=== PATIENT | male | born 1945 | race Caucasian/White ===

== ENCOUNTER 2021-02-19 14:39 | Outpatient (CLI) | payer OTHER, SELFPAY ==
--- NOTE | 2021-02-19 14:30 | XRR_ITS ---
PROCEDURE INFORMATION: Exam: XR Abdomen Exam date and time: 02/19/2021 2:48 PM Age: 75 years old Clinical indication: Condition or disease; Other: N21.0 - calculus in bladder; Patient HX: Kidney stone, frequent infections since 09/2020, HX of lung cancer TECHNIQUE: Imaging protocol: XR of the abdomen. Views: Frontal supine view of the abdomen. 1 View. Total images: 2 COMPARISON: DX Abdomen 1 view [id number] 01/10/2021 2:31 PM FINDINGS: Lungs: Evidence of antecedent granulomatous disease. Gastrointestinal tract: Nonobstructive bowel pattern. No visible significant adynamic or reactive ileus. Heavy fecal residue consistent with constipation. Organs: No radiographically visible renal or ureterolithiasis. Vasculature: Arteriosclerosis. Bones/joints: Scoliosis of the spine with degenerative disease and degenerative disc disease and associated spondylosis deformans. XR/XR KUB [id number] IMPRESSION: 1. Constipation. 2. No radiographically visible renal or ureterolithiasis.
== END 2021-02-19 14:40 | disposition home or self-care (01) ==
LOC: RAD 14:43
PROVIDERS: Visit Provider Urology
DX: N21.0 Calculus in bladder (principal); K59.00 Constipation, unspecified
CPT/HCPCS: 74018; 81003; 87077; 87086; 87184

== ENCOUNTER → 2021-03-15 08:15 | Outpatient (BNVA) | payer OTHER, SELFPAY | PROVIDERS: Visit Provider Urology | DX: N39.0 Urinary tract infection, site not specified (principal); N21.0 Calculus in bladder; R39.89 Other symptoms and signs involving the genitourinary system | CPT/HCPCS: 81003; 87077; 87086; 87184 ==

== ENCOUNTER → 2021-03-20 10:28 | Outpatient (BNVA) | payer OTHER, SELFPAY | PROVIDERS: Visit Provider Urology | DX: N21.0 Calculus in bladder (principal); Z20.822 Contact with and (suspected) exposure to COVID-19 | CPT/HCPCS: 87635 ==

== ENCOUNTER 2021-03-23 10:29 | Day surgery (SDC) | payer OTHER, SELFPAY ==
[2021-03-22 14:19] VITALS: BMI 25.0
[2021-03-23] VITALS (7 sets, daily range): BP systolic 145–170; BP diastolic 82–96; PULSE 81–95; RESP 12–20; TEMP 36.1–36.6; O2SAT 94–99
--- NOTE | 2021-03-23 10:34 | XR_ITS ---
WS: [id number] KUB, AP view, 03/23/2021 Clinical Data: Preop ESWL bladder stone Comparison: KUB, 02/19/2021. Findings: No abnormal intraabdominal masses or calcifications are seen. There is no dilatated small bowel or ev idence of obstruction. There is a large amount of fecal material throughout the colon. The fecal material and colon gas obsc ure detail over the kidneys. There is a dextroscoliosis with osteoarthritis. There is a calcification measuring 2.7 cm overlying the bladder. There are vascular calcifications in the true pelvis. There are prostatic calcifications. XR/XR KUB [id number] Impression: 1. Dense calcification overlying the bladder in the true pelvis. 2. Prostatic calcifications.
[2021-03-23] MEDS: sodium chloride 0.9% 1,000 ML 30 ML IV (11:14)
--- NOTE | 2021-03-23 11:36 | ANES.PREANE2 ---
Pre-Anesthetic Assessment Pre-Anesthetic Assessment: Height/Weight: Height 1.73 m Weight 74.843 kg Temp Pulse Resp BP Pulse Ox 97.7 F 88 16 170/87 98 03/23/21 11:09 03/23/21 11:09 03/23/21 11:09 03/23/21 11:09 03/23/21 11:09 Preop Diagnosis: Bladder stones Proposed Procedure: Operation Date: 03/23/21 12:00 Proposed Procedures p ESWL 38925 n21.0(Not Applicable) - Jim Okeefe MD Familial anesthetic complications: none Was Beta Sanjeev taken within 24 hours: N/A Was Clonidine taken within 24 hours: N/A Last intake: Intake Last Liquid Date 03/23/21 Last Liquid Time 08:00 Last Solid Date 03/22/21 Last Solid Time 19:30 Social: Social History: No alcohol and No tobacco Airway: Cervical ROM: WNL MP: 3 Dentition: Partials Pulmonary: Comments: lung cancer CV/HEM: CV/HEM: HTN Metabolic: Metabolic: Hyperlipidemia Anesthetic Plan: ASA status: 2 Anesthesia: General Risk of > 500 ml blood loss (7ml/kg in children): No Meds/Allergies Current Medications: Current Medications Generic Name Dose Route Start Last Admin Trade Name Freq PRN Reason Stop Dose Admin Sodium Chloride 1,000 mls @ 30 ml s/hr 03/23/21 10:45 03/23/21 11:14 Sodium Chloride 0.9% IV 03/24/21 10:44 30 mls/hr .Q24H ANASTASIA Administration PFSH Anesthesia PFSH: Medical History (Updated 03/15/21 @ 09:29 by Jim Okeefe MD) Calculus in bladder Recurrent UTI Family History Mother , AT 60 Heart disease Father , AT 64 Diabetes Social History Smoking and tobacco status: former smoker Alcohol intake: never Marital status: / Current occupational status: retired History of recent travel: No Data Anesthesia Cardiac Studies: No Data to Display
--- NOTE | 2021-03-23 12:38 | P.HPUD_ITS ---
Surgery/Procedure H&P Update DATE OF PROCEDURE: March 23, 2021 DATE H&P PERFORMED: 03/15/21 H&P UPDATE INFORMATION: I have reviewed H&P completed within last 30 days, I have examined patient prior to procedure, No changes to prior documentation and H&P is in [facility] [place] EMR on date indicated PREOP DIAGNOSIS: Bladder stones PLANNED PROCEDURE: Operation Date: 03/23/21 12:00 Proposed Procedures p ESWL 11765 n21.0(Not Applicable) - Jim Okeefe MD
[2021-03-23] MEDS: levofloxacin-dextrose 5 % 500 MG/100 ML PREMIX 100 MG IV (12:45)
--- NOTE | 2021-03-23 13:59 | PM.OP ---
Operative Report Date of procedure: March 23, 2021 Pre-op Diagnosis: Bladder stone Post-op Diagnosis: 1. Large bladder stone 2. Huge prostate with intravesical protruding median lobe 3. Prostatic bleeding from median lobe Procedure Done: 1. Extracorporeal shockwave lithotripsy to large bladder stone 2. Cystoscopy with stone fragment evacuation 3. Fulguration of bleeding prostate Specimens removed/disposition: Bladder stone fragments Pathology: Bladder stone fragments Surgeon: Maldonado Anesthesia: General Estimated blood loss: Less than 50 cc Urine output: Not measured Complications: None Findings: 1. Bladder stone broke up very well with ESWL in 2000 shocks 2. Huge intravesical protruding median lobe that was very friable requiring some post stone fragment evacuation fulguration. Hemostatic at the completion of the fulguration. Condition: stable Disposition: PACU Brief History: Mr. Nichols is a very pleasant 75-year-old white male recently evaluated for hematuria found to have a large bladder stone. He is on dual medical therapy for BPH. Overall felt like he was voiding okay most of the time but at times did have significant abrupt stopping of his stream with intermittency. Bladder stone was identified on CT scan. ESWL was selected as the treatment of choice for his bladder stone with plan for cystoscopy and fragment evacuation. He is already on dual medical therapy for BPH. Procedure: After routine preoperative evaluation examination and obtaining of informed consent he was taken to the operating suite on 03/23/2021 where general anesthesia was administered without difficulty after appropriate timeout was performed, SCDs confirmed to be functioning, preoperative antibiotics administered, beta-madeline protocol confirmed. Positioned on the Dornier unit with the shock head positioned anteriorly over the bladder. The stone was easily identified with biplanar fluoroscopy and focused upon. Shockwave was initiated at a rate of 60 and intensity of 1 advanced an intensity of 4. There was early and fairly significant change. He received about thousand shocks with dramatic change. He was then repositioned in dorsolithotomy position paying careful attention to avoiding pressure points. 23 Romanian cystoscope with 30 degree lens was introduced into the urethra meatus and advanced into the bladder under videoscopy. The bladder was inspected with both 30 and 70 degree lenses. All the stone fragments were washed free. No other additional fragments could be identified on careful inspection. He did have some oozing from multiple sites on his very large median lobe and this was fulgurated with a Bugbee probe for good hemostasis. The bladder was drained and the procedure was completed. He tolerated procedure well without complications and was awakened in the operating room and returned to recovery room. PLANS: 1. Increase tamsulosin to twice a day 2. Observe closely over the next couple hours to make sure that he can void adequately before finalizing discharge. If he has significant difficulty voiding or any evidence of clot issues I would recommend putting a catheter in and observing him overnight rather than sending him home. I reviewed all of this with daughter Lorie. 3. Continue ciprofloxacin at home
[2021-03-30 20:32] LABS: Stone Source BLADDER
== END 2021-03-23 15:38 | disposition home or self-care (01) ==
PROVIDERS: Visit Provider Urology
PROC: (CPT 50590; principal; 2021-03-23 12:00)
PROC: 0TJB8ZZ Inspection of Bladder, Via Natural or Artificial Opening Endoscopic (ICD-10-PCS; CPT 52000; 2021-03-23 12:00)
DX: N21.0 Calculus in bladder (principal); I10 Essential (primary) hypertension; E78.5 Hyperlipidemia, unspecified; Z87.891 Personal history of nicotine dependence
CPT/HCPCS: 50590; 52214; 74018; 82365; 88300; J1100; J1956; J2405; J2704; J2710; J3010; J3490; J7030

== ENCOUNTER 2021-03-26 19:36 | Inpatient (IN) | payer OTHER, MEDICARE, SELFPAY ==
[2021-03-26] VITALS (7 sets, daily range): BP systolic 138–160; BP diastolic 65–83; PULSE 91–102; RESP 17–26; TEMP 37.1; O2SAT 93–98; BMI 24.3
[2021-03-26 20:10] LABS: Basophils # 0.2 10^3/uL (0.0-0.1); Basophils % 0.4 %; Hematocrit 41.1 % (42.0-52.0); Hemoglobin 13.8 g/dL (11.7-16.6); Lymphocytes # 0.8 10^3/uL (0.8-4.8); Lymphocytes % 1.8 %; Mean Corpuscular HGB Conc 33.6 g/dL (30.0-36.0); Mean Corpuscular Hemoglobin 28.9 pg (28.0-34.0); Mean Platelet Volume 8.7 fL (7.4-10.4); Monocytes # 0.7 10^3/uL (0.2-0.9); Monocytes % 1.5 %; Neutrophils # 42.83 10^3/uL (1.8-7.7); Neutrophils % 95.4 %; Nucleated Red Blood Cells % 0 %; Platelet Count 435 10^3/cmm (130-400); Red Blood Count 4.78 10^6/uL (4.1-5.3); Red Cell Distribution Width 13.7 % (12.1-15.1)
[2021-03-26 20:13] LABS: White Blood Count 44.9 10^3/uL (4.0-10.0)
--- NOTE | 2021-03-26 20:24 | CTR_ITS ---
PROCEDURE INFORMATION: Exam: CT Abdomen And Pelvis With Contrast Exam date and time: 03/26/2021 8:24 PM Age: 76 years old Clinical indication: Other: Weakness; Abdominal pain; Localized; Right lower quadrant (rlq); Prior surgery; Surgery type: Prostate, colon TECHNIQUE: Imaging protocol: Computed tomography of the abdomen and pelvis with contrast. Radiation optimization: All CT scans at this facility use at least one of these dose optimization techniques: automated exposure control; mA and/or kV adjustment per patient size (includes targeted exams where dose is matched to clinical indication); or iterative reconstruction. Contrast material: VISI 320; Contrast volume: 95 ml; Contrast route: INTRAVENOUS (IV); COMPARISON: CR XR KUB [id number] 03/23/2021 10:53 AM RADIATION DOSE METRICS: Total DLP (mGy-cm): 1754.12 FINDINGS: Lungs: Bibasilar atelectasis versus minimal infiltrate. Pleural spaces: Trace bilateral pleural effusions. Liver: Normal. No mass. Gallbladder and bile ducts: Moderate intrahepatic biliary dilation is likely chronic. Pancreas: Normal. No ductal dilation. Spleen: Normal. No splenomegaly. Adrenal glands: Normal. No mass. Kidneys and ureters: Normal. No hydronephrosis. Stomach and bowel: Prominent fluid in the small bowel without dilation may reflect an ileus or enteritis. Mid sigmoid colon mild wall thickening with some edema about several diverticuli may reflect a mild diverticulitis in this area or simply nondistention of the bowel depending on the clinical scenario. Appendix: No evidence of appendicitis. Intraperitoneal space: Moderate ascites in the abdomen, nonspecific. Vasculature: Unremarkable. No abdominal aortic aneurysm. Lymph nodes: 18 mm apparent lymph nodes seen along the right aspect of the superior vena cava, nonspecific. Urinary bladder: Air seen in the urinary bladder may be iatrogenic. Reproductive: Prostate gland enlarged. Bones/joints: Unremarkable. No acute fracture. Soft tissues: Unremarkable. Other findings: Emphysematous changes. CT/CT abdomen pelvis w con* [id number] IMPRESSION: 1. Prominent fluid in the small bowel without dilation may reflect an ileus or enteritis. 2. Mid sigmoid colon mild wall thickening with some edema about several diverticuli may reflect a mild diverticulitis in this area or simply nondistention of the bowel depending on the clinical scenario. 3. Bibasilar atelectasis versus minimal infiltrate. 4. Trace bilateral pleural effusions. 5. Air seen in the urinary bladder may be iatrogenic. 6. Moderate intrahepatic biliary dilation is likely chronic. 7. Moderate ascites in the abdomen, nonspecific. 8. Diverticulosis without diverticulitis. 9. Emphysematous changes. Radiation Dose CTDIVOL = (mGy): DLP = 1754.12 (mGy-cm)
[2021-03-26 20:26] LABS: Alanine Aminotransferase 24 U/L (0-41); Albumin Level 3.9 g/dL (3.5-5.2); Alkaline Phosphatase 107 IU/L (40-130); Anion Gap 17.7 (5-19); Aspartate Amino Transferase 21 U/L (0-40); Blood Urea Nitrogen 29 mg/dL (8-23); C Reactive Protein 131.4 mg/L (0.0-4.9); Carbon Dioxide 21 mmol/L (22-29); Chloride 92 mmol/L (98-107); Globulin 2.6 g/dL (1.3-4.6); Glucose 137 mg/dL (65-115); Lipase 12 U/L (13-60); Osmolality Calculated 272 mOsm/kg (285-295); Potassium 3.7 mmol/L (3.5-5.1); Sodium 127 mmol/L (136-145); Total Bilirubin 1.1 mg/dL (0.15-1.2); Total Protein 6.5 g/dL (6.6-8.7)
[2021-03-26] MEDS: sodium chloride 0.9% 1,000 ML 999 ML IV (20:34)
[2021-03-26] MEDS: HYDROmorphone 1 mg/mL INJ 1 mL IVP ×2 (20:35→22:31)
--- NOTE | 2021-03-26 20:54 | ED_ITS ---
HPI - Abdominal Pain General: Chief Complaint: Abdominal Pain Stated Complaint: abd pain Time Seen by Provider: 03/26/21 19:37 Source: patient, family (son) and RN notes reviewed Mode of arrival: EMS Limitations: no limitations History of Present Illness: HPI narrative: Patient is a 76-year-old male with a history of bladder stones and who had lithotripsy for a large bladder stone 3 days ago. For the last 2 days the patient has had generalized abdominal pain that starts in his lower abdomen and spread to the rest of his abdomen. Pain is said to be severe, crampy in nature. He has also not made a lot of urine output. His appetite is decreased. He denies any fever. He has some nausea but no vomiting. He is here to be evaluated for these. MD elicited complaint: abdominal pain Pertinent past history: kidney stones Onset (ago): hour(s) (2) Pain Consistency: constant Location: Diffuse Severity: severe Quality: cramping Radiation: none Exacerbating factors: nothing Relieving factors: nothing Associated Symptoms: Reports anorexia, GI cramping, nausea and poor appetite; Denies belching, bloating, change in bowel habits, change in stool character, chills, coffee ground emesis, constipation, diarrhea, dyspepsia, dysuria, excessive flatus, fever(s), heartburn, hematochezia, hematuria, hematemesis, fecal incontinence, loose stools, melena, syncope and vomiting Review of Systems General: Reports: 10 or more systems reviewed and unremarkable except in HPI and below Const: Denies: fever(s) or chills Card: Denies: syncope GI: Reports: nausea and GI cramping; Denies: vomiting, hematemesis, coffee ground emesis, heartburn, diarrhea, constipation, bloating, belching, excessive flatus, fecal incontinence, change in bowel habits, change in stool character, hematochezia or melena : Denies: dysuria or hematuria PFSH ED PFSH: Medical History (Reviewed 03/26/21 @ 21:00 by Melissa Daugherty MD, [facility] [place]) Calculus in bladder Recurrent UTI Family History (Reviewed 03/26/21 @ 21:00 by Melissa Daugherty MD, [facility] [place]) Mother , AT 60 Heart disease Father , AT 64 Diabetes Social History (Reviewed 03/26/21 @ 21:00 by Melissa Daugherty MD, [facility] [place]) Smoking and tobacco status: former smoker Alcohol intake: never Marital status: / Current occupational status: retired History of recent travel: No Physical Exam Const: COMMON NORMALS: no acute distress, average body habitus, patient oriented x3, no limitations, healthy appearing, alert and well nourished HENMT: COMMON NORMALS: normocephalic, atraumatic and moist oral mucous membranes HEAD & SCALP: normocephalic and atraumatic Neck/C-Spine: COMMON NORMALS: no meningeal signs and no JVD Resp: COMMON NORMALS: normal respiratory effort, No retractions, No use of accessory muscles, clear to auscultation bilaterally and percussion normal AUSCULTATION: clear to auscultation bilaterally PERCUSSION: percussion normal Cardio: COMMON NORMALS: no JVD, regular rate, regular rhythm, S1 normal heart sound present, S2 normal heart sound present, No gallops present (Cardio), No clicks present (Cardio), No murmurs present (Cardio), No rub (Cardio) and Peripheral pulses 2+ throughout RATE: regular rate RHYTHM: regular rhythm HEART SOUNDS: S1 normal heart sound present and S2 normal heart sound present PERIPHERAL PULSES: Peripheral pulses 2+ throughout GI: COMMON NORMALS: Soft to palpation, No hepatosplenomegaly present, no masses and no bruits INSPECTION: Yes abdominal distension PALPATION: Yes Soft to palpation, Yes Tenderness to palpation present (GI) (diffuse), Yes Guarding due to palpation present (GI), Yes Rigid due to palpation and Yes No hepatosplenomegaly present Extremity: COMMON NORMALS: normal to inspection, full ROM, capillary refill normal, no calf tenderness and no pedal edema Neuro: COMMON NORMALS: patient oriented x3 SENSORIUM/ORIENTATION: Yes alert MENINGEAL SIGNS: Yes no meningeal signs Skin: COMMON NORMALS: no rashes or lesions noted, no wounds, turgor normal, no jaundice, no petechiae and no mottling GENERAL SKIN EXAM: no rashes or lesions noted and turgor normal Course Reevaluation(s): Reevaluation #1: Does notDiscussed his lab and imaging findings with him. Explained that iatrogenic complication from his lithotripsy, however he has a urinary tract infection as well as possible diverticulitis. Because of his white cell count he will need hospital admission and intravenous antibiotics. He voiced understanding and is in agreement with the plan. Time: 23:00 Consultations: Consultation #1: Discussed the patient with Dr. Coppola, hospitalist and she kindly accepted the patient to her service. Time: 23:06 Vital Signs: Vital signs: Vital Signs Temperature 98.7 F 03/26/21 19:38 Pulse Rate 98 03/26/21 19:38 Respiratory Rate 18 03/26/21 22:31 Blood Pressure 157/77 03/26/21 19:38 Pulse Oximetry 96 03/26/21 22:31 MDM - Abdominal Pain MDM Narrative: Medical decision making narrative: 76-year-old male who pres ents to the emergency department with abdominal pain of 2 days duration. This started 1 day after he had lithotripsy for large bladder stones. He has also been having difficulty with urination. No fever. In the emergency department evaluation shows he has a urinary tract infection and possible diverticulitis. He has severely elevated white cell count. He does not appear to be septic at this time but he will need hospital admission. He is admitted to the hospital for further evaluation and management. Medical Records: Attestation: I reviewed the patient's medical records. Lab Data: Attestation: I reviewed the patient's lab results. Labs: Lab Results 03/26/21 03/26/21 03/26/21 Range/Units 19:55 19:55 20:33 WBC 44.9 H* (4.0-10.0) 10^3/ uL RBC 4.78 (4.1-5.3) 10^6/u L Hgb 13.8 (11.7-16.6) g/dL Hct 41.1 L (42.0-52.0) % MCV 86.0 (80-94) fL MCH 28.9 (28.0-34.0) pg MCHC 33.6 (30.0-36.0) g/dL RDW 13.7 (12.1-15.1) % Plt Count 435 H (130-400) 10^3/c mm MPV 8.7 (7.4-10.4) fL Neut % (Auto) 95.4 % Lymph % (Auto) 1.8 % [place] % (Auto) 1.5 % Eos % (Auto) 0.0 % Baso % (Auto) 0.4 % Neut # (Auto) 42.83 H (1.8-7.7) 10^3/u L Lymph # (Auto) 0.8 (0.8-4.8) 10^3/u L [place] # (Auto) 0.7 (0.2-0.9) 10^3/u L Eos # (Auto) 0.0 (0.0-0.8) 10^3/u L Baso # (Auto) 0.2 H (0.0-0.1) 10^3/u L Nucleated RBC % (a uto) 0 % Nucleated RBCs # 0.0 /100WBC Sodium 127 L (136-145) mmol/L Potassium 3.7 (3.5-5.1) mmol/L Chloride 92 L (98-107) mmol/L Carbon Dioxide 21 L (22-29) mmol/L Anion Gap 17.7 (5-19) BUN 29 H (8-23) mg/dL Creatinine 1.4 H (0.7-1.2) mg/dL GFR Calculation Not Reportable Glucose 137 H (65-115) mg/dL Calculated Osmolal ity 272 L (285-295) mOsm/k g Lactate (0.5-2.2) mmol/L Calcium 9.0 (8.5-10.5) mg/dL Total Bilirubin 1.1 (0.15-1.2) mg/dL AST 21 (0-40) U/L ALT 24 (0-41) U/L Alkaline Phosphata se 107 (40-130) IU/L Troponin T Baselin e (0-15) ng/L C-Reactive Protein 131.4 H (0.0-4.9) mg/L Total Protein 6.5 L (6.6-8.7) g/dL Albumin 3.9 (3.5-5.2) g/dL Globulin 2.6 (1.3-4.6) g/dL Lipase 12 L (13-60) U/L Urine Color [place] (Yellow) Urine Appearance Cloudy (CLEAR) Urine pH 5 (5-7) Ur Specific Gravit y 1.020 (1.005-1.030) Urine Protein 2+ H (Negative) Urine Glucose (UA) Norm (Normal) Urine Ketones Negative (Negative) Urine Blood 2+ H (Negative) Urine Nitrate Positive H (Negative) Urine Bilirubin 1+ H (Negative) Urine Urobilinogen 4 H (Negative) mg/dL Ur Leukocyte Lake[place] ase 2+ H (Negative) Urine RBC 5-10 H (0-2) /hpf Urine WBC 25-40 H (0-5) /hpf Ur Squamous Epith Cells 5-10 H (0-5) /hpf Amorphous Sediment Not Reportable Urine Bacteria 1+ H (NONE) /hpf Urine Yeast 3+ H /hpf 03/26/21 03/26/21 03/26/21 Range/Units 20:45 22:02 22:45 WBC (4.0-10.0) 10^3/ uL RBC (4.1-5.3) 10^6/u L Hgb (11.7-16.6) g/dL Hct (42.0-52.0) % MCV (80-94) fL MCH (28.0-34.0) pg MCHC (30.0-36.0) g/dL RDW (12.1-15.1) % Plt Count (130-400) 10^3/c mm MPV (7.4-10.4) fL Neut % (Auto) % Lymph % (Auto) % [place] % (Auto) % Eos % (Auto) % Baso % (Auto) % Neut # (Auto) (1.8-7.7) 10^3/u L Lymph # (Auto) (0.8-4.8) 10^3/u L [place] # (Auto) (0.2-0.9) 10^3/u L Eos # (Auto) (0.0-0.8) 10^3/u L Baso # (Auto) (0.0-0.1) 10^3/u L Nucleated RBC % (a uto) % Nucleated RBCs # /100WBC Sodium (136-145) mmol/L Potassium (3.5-5.1) mmol/L Chloride (98-107) mmol/L Carbon Dioxide (22-29) mmol/L Anion Gap (5-19) BUN (8-23) mg/dL Creatinine (0.7-1.2) mg/dL GFR Calculation Glucose (65-115) mg/dL Calculated Osmolal ity (285-295) mOsm/k g Lactate 1.8 (0.5-2.2) mmol/L Calcium (8.5-10.5) mg/dL Total Bilirubin (0.15-1.2) mg/dL AST (0-40) U/L ALT (0-41) U/L Alkaline Phosphata se (40-130) IU/L Troponin T Baselin e 12 (0-15) ng/L C-Reactive Protein (0.0-4.9) mg/L Total Protein (6.6-8.7) g/dL Albumin (3.5-5.2) g/dL Globulin (1.3-4.6) g/dL Lipase (13-60) U/L Urine Color [place] (Yellow) Urine Appearance Cloudy (CLEAR) Urine pH 5 (5-7) Ur Specific Gravit y 1.015 (1.005-1.030) Urine Protein 2+ H (Negative) Urine Glucose (UA) Norm (Normal) Urine Ketones Negative (Negative) Urine Blood 3+ H (Negative) Urine Nitrate Positive H (Negative) Urine Bilirubin 1+ H (Negative) Urine Urobilinogen 4 H (Negative) mg/dL Ur Leukocyte Lakeisha ase 2+ H (Negative) Urine RBC (0-2) /hpf Urine WBC (0-5) /hpf Ur Squamous Epith Cells (0-5) /hpf Amorphous Sediment Urine Bacteria (NONE) /hpf Urine Yeast /hpf Imaging Data ^: CT Abd/Pel: Attestation: I personally reviewed and interpreted this imaging study as follows: Radiologist's impression: [address] [id number] Scan ReportSigned Patient: Jeremy Nichols JUnit #: [id number]: [id number]#:[id number]/Sex: 76 / MADM Date: 03/26/21Loc: ERRoom/Bed:Attending Dr: Ordering Provider/Ordering MD: Melissa Daugherty MD, [facility] [place] Date of Service: 03/26/21 Procedure(s): CT abdomen pelvis w con* [id number] Accession Number(s): [id number] Report Number: [id number] PROCEDURE INFORMATION: Exam: CT Abdomen And Pelvis With Contrast Exam date and time: 03/26/2021 8:24 PM Age: 76 years old Clinical indication: Other: Weakness; Abdominal pain; Localized; Right lower quadrant (rlq); Prior surgery; Surgery type: Prostate, colon TECHNIQUE: Imaging protocol: Computed tomography of the abdomen and pelvis with contrast. Radiation optimization: All CT scans at this facility use at least one of these dose optimization techniques: automated exposure control; mA and/or kV adjustment per patient size (includes targeted exams where dose is matched to clinical indication); or iterative reconstruction. Contrast material: VISI 320; Contrast volume: 95 ml; Contrast route: INTRAVENOUS (IV); COMPARISON: CR XR KUB [id number] 03/23/2021 10:53 AM RADIATION DOSE METRICS: Total DLP (mGy-cm): 1754.12 FINDINGS: Lungs: Bibasilar atelectasis versus minimal infiltrate. Pleural spaces: Trace bilateral pleural effusions. Liver: Normal. No mass. Gallbladder and bile ducts: Moderate intrahepatic biliary dilation is likely chronic. Pancreas: Normal. No ductal dilation. Spleen: Normal. No splenomegaly. Adrenal glands: Normal. No mass. Kidneys and ureters: Normal. No hydronephrosis. Stomach and bowel: Prominent fluid in the small bowel without dilation may reflect an ileus or enteritis. Mid sigmoid colon mild wall thickening with some edema about several diverticuli may reflect a mild diverticulitis in this area or simply nondistention of the bowel depending on the clinical scenario. Appendix: No evidence of appendicitis. Intraperitoneal space: Moderate ascites in the abdomen, nonspecific. Vasculature: Unremarkable. No abdominal aortic aneurysm. Lymph nodes: 18 mm apparent lymph nodes seen along the right aspect of the superior vena cava, nonspecific. Urinary bladder: Air seen in the urinary bladder may be iatrogenic. Reproductive: Prostate gland enlarged. Bones/joints: Unremarkable. No acute fracture. Soft tissues: Unremarkable. Other findings: Emphysematous changes. CT/CT abdomen pelvis w con* [id number] IMPRESSION: 1. Prominent fluid in the small bowel without dilation may reflect an ileus or enteritis. 2. Mid sigmoid colon mild wall thickening with some edema about several diverticuli may reflect a mild diverticulitis in this area or simply nondistention of the bowel depending on the clinical scenario. 3. Bibasilar atelectasis versus minimal infiltrate. 4. Trace bilateral pleural effusions. 5. Air seen in the urinary bladder may be iatrogenic. 6. Moderate intrahepatic biliary dilation is likely chronic. 7. Moderate ascites in the abdomen, nonspecific. 8. Diverticulosis without diverticulitis. 9. Emphysematous changes. Radiation Dose CTDIVOL = (mGy): DLP = 1754.12 (mGy-cm) Dictated By:Javon Sheridan MDSigned By:Javon Sheridan MDSigned Date/Time:03/26/212255DD/ 53 EKG Data ^: EKG 1: Attestation: I personally reviewed and interpreted this EKG as follows: EKG interpretation date: 03/26/21 EKG interpretation time: 19:44 Prior EKG tracings: not available for review Interpretation: Sinus tachycardia. Heart rate [address] changes. EKG 2: Attestation: I personally reviewed and interpreted this EKG as follows: EKG interpretation date: 03/26/21 EKG interpretation time: 22:11 Prior EKG tracings: available for review Interpretation: Sinus rhythm. Heart rate [address] changes. No significant change from earlier today. Discharge Plan Discharge Patient Disposition: Admitted As Inpatient Admit Provider: Celeste Coppola Clinical Impression: Acute urinary retention, Diverticulitis, UTI (urinary tract infection) Condition: Stable Coding Level of Care Code ED Wood Inspector for Chg Fwd Exam Comprehensive
[2021-03-26 21:33] LABS: Add Urine Culture? Yes; Add Urine Microscopic? YES; Bacteria Urine 1+ /hpf; Bilirubin Urine 1+ (Negative); Blood Urine 2+ (Negative); Glucose Urine UA Norm (Normal); Ketones Urine Negative (Negative); Leukocyte Esterase Urine 2+ (Negative); Nitrate Urine Positive (Negative); Other Sediment, Urine BUD YEAST W/HYPHAE; Protein Urine 2+ (Negative); Urine Appearance Cloudy (CLEAR); Urine Color Orange (Yellow); Urobilinogen Urine 4 mg/dL (Negative); WBC Urine 25-40 /hpf (0-5); pH Urine 5 (5-7)
[2021-03-26 21:37] LABS: Lactate (Lactic Acid level) 1.8 mmol/L (0.5-2.2)
[2021-03-26] MEDS: iodixanol 320 mg/mL 100mL Btl IV (21:48)
--- NOTE | 2021-03-26 21:57 | ECG_ITS ---
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 Measurements Intervals [place] Rate: 93 P: 41 [place]: 143 QRS: 60 QRSD: 113 T: 18 QT: 354 QTc: 442 Interpretive Statements SINUS RHYTHM POSSIBLE LEFT ATRIAL ENLARGEMENT [-0.1mV P WAVE IN V1/V2] MODERATE INTRAVENTRICULAR CONDUCTION DELAY [110+ ms QRS DURATION] No previous ECG available for comparison Electronically Signed On 03-28-2021 0:29:46 CDT by Shanthi Chambers M.D. [email or web address] county [email or web address] [email or web address] Solutionscleveland clinic [facility].[employer]/store/OM/[id number]/[email or web address]/[id number]
[2021-03-26 22:28] LABS: Troponin(5th) Baseline 12 ng/L (0-15)
[2021-03-26] MEDS: piperacillin-tazobactam 3.375 GM in sodium chloride 0.9% (plus) 50 ML IV (23:04)
[2021-03-26 23:10] LABS: Charge for UA Resulting for Rev
[2021-03-26 23:21] LABS: Add Urine Microscopic? YES; Bilirubin Urine 1+ (Negative); Blood Urine 3+ (Negative); Glucose Urine UA Norm (Normal); Ketones Urine Negative (Negative); Leukocyte Esterase Urine 2+ (Negative); Nitrate Urine Positive (Negative); Protein Urine 2+ (Negative); Specific Gravity, Urine 1.015 (1.005-1.030); Urine Appearance Cloudy (CLEAR); Urine Color Orange (Yellow); Urobilinogen Urine 4 mg/dL (Negative); pH Urine 5 (5-7)
--- NOTE | 2021-03-26 23:57 | ECG_ITS ---
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 Measurements Intervals [place] Rate: 103 P: 43 [place]: 143 QRS: 75 QRSD: 108 T: 32 QT: 337 QTc: 441 Interpretive Statements SINUS TACHYCARDIA LEFT ATRIAL ENLARGEMENT [-0.15mV P WAVE IN V1/V2] No previous ECG available for comparison Electronically Signed On 03-28-2021 0:33:49 CDT by Shanthi Chambers M.D. [email or web address] Autism/store/NU/[id number] f
[2021-03-27] VITALS (25 sets, daily range): BP systolic 120–161; BP diastolic 57–85; PULSE 87–104; RESP 16–29; TEMP 36.6–37.6; O2SAT 89–94
--- NOTE | 2021-03-27 01:36 | PM.HP ---
Providers/Chief Complaint Admitting Physician: Celeste Coppola MD Chief Complaint: abd pain History of Present Illness Jermey Nichols is a 76 year old male with PMH as outlined below hwo underwent Extracorporeal shockwave lithotripsy to large bladder stone, Cystoscopy with stone fragment evacuation and Fulguration of bleeding prostate on 03/23/21. Discharged post operatively. States he developed generalized abdominal pain that continued to get worse over course of weekend. Addtionally develeoped nausea, vomiting and poor urine output which chad him to the ER. He states feeling better after receiving dilaudid and having a Hdez placed, which drained ~1L of urine. This is clear. No fever, chills. Passing flatus, last BM in the ER after being given suppositories. Labs notable for leukocytosis of 44, unknown past baseline, cr 1.4 (baseline N/A). He has been on Ciprofloxcin 500mg BID since discharge. Has received COVID vaccination x2. Review of Systems General: Reports: 10 or more systems reviewed and unremarkable except in HPI and below Const: Denies: fever(s), chills or body aches Eyes: Denies: change in vision, blurry vision or photophobia ENMT: Reports: hoarseness; Denies: throat pain, enlarged tonsils, odynophagia or nasal congestion Card: Denies: chest pain, palpitations, irregular heart rhythm, edema, swelling of feet/ankles, lightheadedness, pre-syncope, dyspnea on exertion or orthopnea Resp: Denies: dyspnea, productive cough, non-productive cough, wheezing, stridor, pain on inspiration, change in phlegm color, hemoptysis or chest congestion GI: Reports: abdominal pain, nausea and vomiting; Denies: hematemesis, coffee ground emesis, dysphagia, heartburn, diarrhea, constipation, GI cramping, change in stool character, hematochezia or melena : Reports: flank pain; Denies: dysuria, urinary frequency, urinary urgency, urinary hesitancy or hematuria Musc: Denies: neck pain, back pain, extremity pain, joint swelling, joint warmth or deformity Neuro: Denies: headache(s), numbness in extremities, weakness in extremities, sensory changes, difficulty walking, frequent falls, dizziness, vertigo, behavioral changes, Slurred speech present or seizure-like activity Psych: Denies: anxiety, depression, suicidal ideation or homicidal ideation Endo: Denies: polyuria, polydipsia, tired all the time, cold intolerance or hot flashes [place]/Lymph: Denies: easy bruising or easy bleeding Medications/Allergies Home Medications Medication Instructions Recorded Confirmed Last Taken Type amlodipine 5 mg tablet 5 mg PO BID 02/07/21 03/26/21 03/26/21 History atorvastatin 40 mg tablet 20 mg PO DAILY 02/07/21 03/26/21 03/26/21 History celecoxib 200 mg capsule 200 mg PO BID 02/07/21 03/26/21 03/26/21 History finasteride 5 mg tablet 5 mg PO DAILY 02/07/21 03/26/21 03/26/21 History coenzyme Q10 75 mg capsule 75 mg PO DAILY 02/19/21 03/26/21 03/26/21 History ciprofloxacin HCl 500 mg tablet 500 mg PO BID #20 tab 03/22/21 03/26/21 03/26/21 Rx tamsulosin 0.4 mg PO BIDWM #60 cap 03/23/21 03/26/21 03/26/21 Rx ascorbate calcium (vitamin C) 500 mg PO DAILY 03/26/21 03/26/21 03/19/21 History [[place]akeisha-C] bisacodyl [Dulcolax (bisacodyl)] 5 mg PO DAILY PRN 03/26/21 03/26/21 Unknown History bisacodyl [Dulcolax (bisacodyl)] 10 mg NE DAILY PRN 03/26/21 03/26/21 03/26/21 History doxycycline hyclate 100 mg PO BID 03/26/21 03/26/21 03/26/21 History hydrocodone 5 mg-acetaminophen 325 1 tab PO Q6H PRN 3 Days #12 tab 03/26/21 03/26/21 03/26/21 Rx mg tablet Allergies Allergy/AdvReac Type Severity Reaction Status Date / Time No Known Allergies Allergy Verified 03/23/21 11:04 PFSH Acute PFSH: Medical History (Updated 03/27/21 @ 01:56 by Celeste Coppola MD) Calculus in bladder Recurrent UTI Surgical History (Updated 03/27/21 @ 01:56 by Celeste Coppola MD) History of lung biopsy Family History Mother , AT 60 Heart disease Father , AT 64 Diabetes Social History Smoking and tobacco status: former smoker Alcohol intake: never Marital status: / Current occupational status: retired History of recent travel: No Vitals/I&O/Wt Last Vital Signs Temp 98.7 F 03/26/21 19:38 Pulse 89 03/27/21 01:33 Resp 24 H 03/27/21 01:33 BP 120/57 03/27/21 01:33 Pulse Ox 92 03/27/21 01:33 03/26/21 03/26/21 03/27/21 14:59 22:59 06:59 Intake Total 1050 / 1050 Balance 1050 / 1050 Weight last 48 hrs Weight 72.575 kg Physical Exam Narrative: EXAM NARRATIVE: General: No acute distress, AO x3 HEENT: PERRLA, pupils bilaterally equal and reactive, pallors not present Chest: Normal vesicular breath sounds, no added sounds, equal good air entry bilaterally CVS: S1-S2 regular, no murmurs, no tachycardia, no gallops, no rubs Abdomen: Soft, nontender, no organomegaly, bowel sounds present Neuro: No focal deficits, no facial deformity, AO x3, power 5/5 in all limbs Extremities: No edema Urinary Catheter Management^: Hdez: Cath Placed During This Visit: yes Urinary Catheter Date of Insertion: 03/26/21 Urinary Catheter Time of Insertion: 23:00 Data : 03/26/21 19:55 03/26/21 19:55 Other Labs: Laboratory Results WBC 44.9 10^3/uL (4.0-10.0) H* 03/26/21 19:55 RBC 4.78 10^6/uL (4.1-5.3) 03/26/21 19:55 Hgb 13.8 g/dL (11.7-16.6) 03/26/21 19:55 Hct 41.1 % (42.0-52.0) L 03/26/21 19:55 MCV 86.0 fL (80-94) 03/26/21 19:55 MCH 28.9 pg (28.0-34.0) 03/26/21 19:55 MCHC 33.6 g/dL (30.0-36.0) 03/26/21 19:55 RDW 13.7 % (12.1-15.1) 03/26/21 19:55 Plt Count 435 10^3/cmm (130-400) H 03/26/21 19:55 MPV 8.7 fL (7.4-10.4) 03/26/21 19:55 Neut % (Auto) 95.4 % 03/26/21 19:55 Lymph % (Auto) 1.8 % 03/26/21 19:55 Jack % (Auto) 1.5 % 03/26/21 19:55 Eos % (Auto) 0.0 % 03/26/21 19:55 Baso % (Auto) 0.4 % 03/26/21 19:55 Neut # (Auto) 42.83 10^3/uL (1.8-7.7) H 03/26/21 19:55 Lymph # (Auto) 0.8 10^3/uL (0.8-4.8) 03/26/21 19:55 Jack # (Auto) 0.7 10^3/uL (0.2-0.9) 03/26/21 19:55 Eos # (Auto) 0.0 10^3/uL (0.0-0.8) 03/26/21 19:55 Baso # (Auto) 0.2 10^3/uL (0.0-0.1) H 03/26/21 19:55 Nucleated RBC % (auto) 0 % 03/26/21 19:55 Nucleated RBCs # 0.0 /100WBC 03/26/21 19:55 Sodium 127 mmol/L (136-145) L 03/26/21 19:55 Potassium 3.7 mmol/L (3.5-5.1) 03/26/21 19:55 Chloride 92 mmol/L (98-107) L 03/26/21 19:55 Carbon Dioxide 21 mmol/L (22-29) L 03/26/21 19:55 Anion Gap 17.7 (5-19) 03/26/21 19:55 BUN 29 mg/dL (8-23) H 03/26/21 19:55 Creatinine 1.4 mg/dL (0.7-1.2) H 03/26/21 19:55 GFR Calculation Not Reportable 03/26/21 19:55 Glucose 137 mg/dL (65-115) H 03/26/21 19:55 Calculated Osmolality 272 mOsm/kg (285-295) L 03/26/21 19:55 Lactate 1.8 mmol/L (0.5-2.2) 03/26/21 20:45 Calcium 9.0 mg/dL (8.5-10.5) 03/26/21 19:55 Total Bilirubin 1.1 mg/dL (0.15-1.2) 03/26/21 19:55 AST 21 U/L (0-40) 03/26/21 19: ALT 24 U/L (0-41) 03/26/21 19:55 Alkaline Phosphatase 107 IU/L (40-130) 03/26/21 19:55 Troponin T Baseline 12 ng/L (0-15) 03/26/21 22:02 Troponin T 120 Minute 12.40 ng/L (0-15) 03/26/21 23:45 Delta Troponin T 0.40 ABS# (0-10) 03/26/21 23:45 C-Reactive Protein 131.4 mg/L (0.0-4.9) H 03/26/21 19:55 Total Protein 6.5 g/dL (6.6-8.7) L 03/26/21 19:55 Albumin 3.9 g/dL (3.5-5.2) 03/26/21 19: Globulin 2.6 g/dL (1.3-4.6) 03/26/21 19:55 Lipase 12 U/L (13-60) L 03/26/21 19:55 Urine Color Elbert (Yellow) 03/26/21 22:45 Urine Appearance Cloudy (CLEAR) 03/26/21 22:45 Urine pH 5 (5-7) 03/26/21 22:45 Ur Specific [place] 1.015 (1.005-1.030) 03/26/21 22:45 Urine Protein 2+ (Negative) H 03/26/21 22:45 Urine Glucose (UA) Norm (Normal) 03/26/21 22:45 Urine Ketones Negative (Negative) 03/26/21 22:45 Urine Blood 3+ (Negative) H 03/26/21 22:45 Urine Nitrate Positive (Negative) H 03/26/21 22:45 Urine Bilirubin 1+ (Negative) H 03/26/21 22:45 Urine Urobilinogen 4 mg/dL (Negative) H 03/26/21 22:45 Ur Leukocyte Esterase 2+ (Negative) H 03/26/21 22:45 Urine RBC 5-10 /hpf (0-2) H 03/26/21 20:33 Urine WBC 25-40 /hpf (0-5) H 03/26/21 20:33 Ur Squamous Epith Cells 5-10 /hpf (0-5) H 03/26/21 20:33 Amorphous Sediment Not Reportable 03/26/21 20:33 Urine Bacteria 1+ /hpf (NONE) H 03/26/21 20:33 Urine Yeast 3+ /hpf H 03/26/21 20:33 Impressions Abdomen/Pelvis CT 03/26/21 20:24 IMPRESSION: 1. Prominent fluid in the small bowel without dilation may reflect an ileus or enteritis. 2. Mid sigmoid colon mild wall thickening with some edema about several diverticuli may reflect a mild diverticulitis in this area or simply nondistention of the bowel depending on the clinical scenario. 3. Bibasilar atelectasis versus minimal infiltrate. 4. Trace bilateral pleural effusions. 5. Air seen in the urinary bladder may be iatrogenic. 6. Moderate intrahepatic biliary dilation is likely chronic. 7. Moderate ascites in the abdomen, nonspecific. 8. Diverticulosis without diverticulitis. 9. Emphysematous changes. Radiation Dose CTDIVOL = (mGy): DLP = 1754.12 (mGy-cm) Micro: Microbiology 03/26/21 20:45 Blood Culture - Preliminary Blood SPECIMEN COLLECTED 03/26/21 20:45 Blood Culture - Preliminary Blood SPECIMEN COLLECTED A&P Assessment and plan (1) Sepsis: Meets criteria by way of leukocytosis, tachypnea, ELKIN Presumed urinary source given recent instrumentation with a h/o chronic recurrent UTI Blood and urine cx taken , lactate normal Started on iv zosyn emprically prior urine cx with Klebsiella pn and Enterobacter cloacae CT abdomen without acute surgical complications, air in bladder likely from recent procedure Status: Acute Qualifiers: Sepsis type: sepsis due to unspecified organism Sepsis acute organ dysfunction status: with acute organ dysfunction Severe sepsis acute organ dysfunction type: acute renal failure Acute renal failure type: unspecified Severe sepsis shock status: without septic shock Qualified Code(s): A41.9 - Sepsis, unspecified organism; R65.20 - Severe sepsis without septic shock; N17.9 - Acute kidney failure, unspecified (2) Acute urinary retention: Hdez placed, drained 1L urine Status: Acute (3) UTI (urinary tract infection): Status: Acute Qualifiers: Hematuria presence: with hematuria Urinary tract infection type: acute cystitis Qualified Code(s): N30.01 - Acute cystitis with hematuria (4) ELKIN (acute kidney injury): IVF NS @50cc/hr, cautious hydration given pleural effusion and ascites noted on CT imaging Status: Acute Additional A&P Information Diverticulitis on CT scan: no clinical signs or symptoms to suggest diverticulitis. Has had normal BM today, passing flatus. GI soft diet and monitor closely. Past h/o divertcilutis 4-5 years ago. DVT ppx: lovenox Full code Attestations Medical Necessity Statement*: >2midnight anticipated for evaluation and management of sepsis Coding Level of Care Code Acute Chief Nursing Executive for [facility] Fwd Diagnoses Sepsis A41.9; R65.20; N17.9 Sepsis type: sepsis due to unspecified organism Sepsis acute organ dysfunction status: with acute organ dysfunction Severe sepsis acute organ dysfunction type: acute renal failure Acute renal failure type: unspecified Severe sepsis shock status: without septic shock Acute urinary retention R33.8 UTI (urinary tract infection) N30.01 Hematuria presence: with hematuria Urinary tract infection type: acute cystitis ELKIN (acute kidney injury) N17.9
[2021-03-27] MEDS: enoxaparin 40 mg/0.4 mL Syringe SUBCUT (02:07)
[2021-03-27] MEDS: sodium chloride 0.9% 1,000 ML 50 ML IV (02:07)
--- NOTE | 2021-03-27 03:57 | ECG_ITS ---
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 Measurements Intervals [place] Rate: 88 P: 41 [place]: 143 QRS: 67 QRSD: 118 T: 18 QT: 366 QTc: 444 Interpretive Statements SINUS RHYTHM POSSIBLE LEFT ATRIAL ENLARGEMENT [-0.1mV P WAVE IN V1/V2] POSSIBLE INFERIOR MYOCARDIAL INFARCTION [30 ms Q WAVE IN II/aVF], PROBABLY OLD Compared to ECG 03/26/2021 22:10:43 Myocardial infarct finding now present Intraventricular conduction delay no longer present Electronically Signed On 03-28-2021 0:37:33 CDT by Shanthi Chambers M.D. [email or web address]/OM/[id number]
[2021-03-27 05:36] LABS: Troponin 5 6HR 13.36 ng/L (0-15); Troponin 5 6HR Delta 1.36 ng/L (0-12)
[2021-03-27 05:49] LABS: NT Pro B Type Natriuretic Pept 555 pg/mL (0-450)
[2021-03-27] MEDS: piperacillin-tazobactam 3.375 GM in sodium chloride 0.9% (plus) 50 ML IV (06:02)
[2021-03-27] MEDS: pantoprazole DR 40 mg Tablet PO (07:54)
[2021-03-27] MEDS: atorvastatin 40 mg Tablet 20 MG PO (07:54)
[2021-03-27] MEDS: amlodipine 5 mg Tablet PO ×2 (07:54→19:01)
[2021-03-27] MEDS: finasteride 5 mg Tablet PO (07:54)
[2021-03-27] MEDS: tamsulosin 0.4 mg Capsule PO ×2 (07:54→19:02)
[2021-03-27] MEDS: acetaminophen 325 mg Tablet 650 MG PO (12:24)
--- NOTE | 2021-03-27 12:28 | PC.NURSE ---
Pain patient reports pain of 5 on a scale of 0-10 in the generalized abdomen upon coughing. 650 mg of Tylenol administered, room darkened, and patient is attempting to rest. Will continue to monitor.
--- NOTE | 2021-03-27 14:20 | PM.PN ---
Subjective Subjective: Interval history: Today, the patient admits nausea, but no vomiting. He states that the food does not taste good. He states that he felt hot overnight, but his temperature was 99.2 today, and he denies any chills. He continues to complain of back pain, abdominal pain and poor p.o. intake. He states that food does not taste good on 2 separate occasions. He denies any chest pain, visual changes, palpitations. He states that he was short of breath earlier due to pain, but it has resolved. According to the daughter who is in the room with him, prior to presenting in the ED, the patient stated that he had decreased urine output. Medications: Reviewed: Yes Vitals/I&O/Wt Last Vital Signs Temp 99 F 03/27/21 11:28 Pulse 90 03/27/21 13:57 Resp 23 H 03/27/21 11:28 BP 150/78 03/27/21 11:28 Pulse Ox 92 03/27/21 11:28 03/26/21 03/27/21 03/27/21 22:59 06:59 14:59 Intake Total 1250 / 1250 50 / 50 Output Total 900 / 900 1050 / 1050 Balance 350 / 350 -1000 / -1000 Weight last 48 hrs Weight 72.575 kg Physical Exam HENMT: COMMON NORMALS: normocephalic, atraumatic, external ears normal and Normal external nose present HEAD & SCALP: normocephalic and atraumatic FACE & SINUS: normal facial exam NOSE: Normal external nose present EXTERNAL EAR: Yes external ears normal MOUTH: Normal oral and palatal mucosa present Eye: COMMON NORMALS: Equal, round and reactive pupils present and conjunctivae normal CONJUNCTIVA: Yes conjunctivae normal PUPIL: Yes Equal, round and reactive pupils present EOM: No EOM abnormal Neck/C-Spine: COMMON NORMALS: Thyroid normal GENERAL: Yes trachea midline, Yes anterior neck swelling and Yes lymphadenopathy THYROID: Thyroid normal CAROTIDS: Yes normal carotid upstroke Resp: AUSCULTATION: diminished lung sounds bilateral (middle to lower lung lobes) Cardio: COMMON NORMALS: regular rate and regular rhythm RATE: regular rate RHYTHM: regular rhythm HEART SOUNDS: no click, no gallops, no murmurs and no rubs GI: COMMON NORMALS: Soft to palpation and No hepatosplenomegaly present PALPATION: Yes Soft to palpation, No Tenderness to palpation present (GI), No Guarding due to palpation present (GI), No Rigid due to palpation and Yes No hepatosplenomegaly present : BLADDER/KIDNEY EXAM: Yes catheter in place Catheter type (Male): urethral Extremity: COMMON NORMALS: no clubbing, cyanosis or edema Neuro: CRANIAL NERVES: Yes CN normal except as noted GAIT: Yes Unable to assess gait SENSORY EXAM: Yes Normal double simultaneous stimulation for sensation MOTOR EXAM: 5/5 motor strength present throughout Urinary Catheter Management^: Hdez: Cath Placed During This Visit: yes Reason for Continuing Indwelling Catheter: Acute Urinary Retention or Obstruction Urinary Catheter Date of Insertion: 03/26/21 Urinary Catheter Time of Insertion: 23:00 Data : 03/26/21 19:55 03/27/21 15:20 Micro: Microbiology 03/26/21 20:45 Blood Culture - Preliminary Blood SPECIMEN COLLECTED 03/26/21 20:45 Blood Culture - Preliminary Blood SPECIMEN COLLECTED A&P Assessment and plan (1) Severe sepsis: Status: Acute (2) Neutrophilic leukocytosis: Status: Acute (3) Lung cancer: Status: Acute (4) ELKIN (acute kidney injury): Status: Acute (5) Acute urinary retention: Status: Acute (6) BPH (benign prostatic hyperplasia): Status: Acute (7) Recurrent UTI: Status: Acute (8) Calculus in bladder: Status: Acute (9) Diverticulitis: Status: Acute Mr. Nichols is a 76yo man w/ a hx of lung cancer dx/ed in 2019 s/p XRT 6 mths ago, BPH, bladder calculus s/p shockwave lithotripsy & fulguration of the bladder due to bleeding of the median lobe of the prostate on 03/23/2021, who presented to the ED on 03/26/2021 w/ complaints of L. Sided back pain, that radiated to the abdomen and became more generalized, as well as poor p.o. intake. Post procedure on 03/23/2021, he was discharged with ciprofloxacin twice daily. In the ED, he was noted to have a leukocytosis of 44, hyponatremia of 127, and an ELKIN (Cr of 1.4, baseline unknown). He states that he has had 2 doses of the COVID-[address] abdomen pelvis was done that showed trace bilateral pleural effusion, possible infiltrate versus atelectasis in the lung, trace emphysematous changes, moderate ascites in the abdomen, prominent fluid in small bowel concerning for ileus versus enteritis, diverticulosis, and possible diverticulitis in the mid sigmoid colon. Admitted for severe sepsis and initiated on Zosyn. # Severe SEpsis: Due to tachypnea, leukocytosis, and ELKIN. # UTI # Illeus vs Enteritis # Possible pneumonia vs atelectasis # Leukocytosis: Infectious vs malignancy - Continue Zosyn, F/u UCx, and BCx. - F/u CT chest wo contrast and peripheral smear - Continue slow IVF. # Nausea/vomiting. Zofran q4h prn. Phenergan IM x 1 also ordered. # ELectrolyte abnormalities: Replace prn # Metabolic acidosis: Due to emesis. Resolved w/ IVF. # Hx of lung cancer: Seen in spring [place]. Will f/u w/ his Oncologist, Dr. Clinton. # BPH w/ bleeding median lobe of the prostate s/p fulguration, Acute urinary retention, Bladder calculus s/p lithotripsy - Continue Tamsulosin, Finasteride. Hdez catheter in place. Bladder scan ordered. - Consulted Urologist. # ELKIN - Pre-renal. IMproving w/ IVF. # Hyponatremia: likely Hypovolemia due to emesis #HTN: Continued Amlodipine 5mg BID. DVT ppx:Lovenox Attestations Medical Necessity Statement*: The patient needs to remain hospitalized due to his severe sepsis, leukocytosis, pending blood cultures nausea, and electrolyte abnormalities. Coding Level of Care Code Acute Educational Director for [facility] Fwd Exam Comprehensive Diagnoses Severe sepsis A41.9; R65.20 Neutrophilic leukocytosis D72.9 Lung cancer C34.90 ELKIN (acute kidney injury) N17.9 Acute urinary retention R33.8 BPH (benign prostatic hyperplasia) N40.0 Recurrent UTI N39.0 Calculus in bladder N21.0 Diverticulitis K57.92
[2021-03-27] MEDS: ondansetron 2 mg/ML SDV 2 mL 4 MG IVP (14:55)
--- NOTE | 2021-03-27 15:22 | PC.NURSE ---
Cough Pt reports having an intermittent cough. Upon inquiry, patient states that white sputum is produced with cough. No sputum has been observed.
[2021-03-27] MEDS: piperacillin-tazobactam 3.375 GM in sodium chloride 0.9% (plus) 100 ML IV (15:43)
[2021-03-27 15:47] LABS: Alanine Aminotransferase 16 U/L (0-41); Alkaline Phosphatase 81 IU/L (40-130); Anion Gap 11.2 (5-19); Aspartate Amino Transferase 16 U/L (0-40); Blood Urea Nitrogen 12 mg/dL (8-23); Calcium 8.4 mg/dL (8.5-10.5); Carbon Dioxide 25 mmol/L (22-29); Chloride 97 mmol/L (98-107); Globulin 2.9 g/dL (1.3-4.6); Glucose 116 mg/dL (65-115); Magnesium 1.8 mg/dL (1.7-2.3); Osmolality Calculated 271 mOsm/kg (285-295); Phosphorus 1.4 mg/dL (2.5-4.5); Potassium 3.2 mmol/L (3.5-5.1); Sodium 130 mmol/L (136-145); Total Bilirubin 0.8 mg/dL (0.15-1.2); Total Protein 5.9 g/dL (6.6-8.7)
--- NOTE | 2021-03-27 16:39 | PC.NURSE ---
Pt refused PCR send out covid. pt is agreeable to rapid covid test. Hospitalist notified.
[2021-03-27 17:22] LABS: SARS Covid-2 Antigen Negative (Negative)
[2021-03-27] MEDS: promethazine 25 mg/mL SDV 1 mL IM (18:06)
[2021-03-27] MEDS: magnesium oxide 400 mg tablet 800 MG PO (19:02)
[2021-03-27] MEDS: potassium chloride ER 20 mEq Tablet 40 MEQ PO (20:02)
[2021-03-27 20:17] LABS: LAB Peripheral Smear Sent for Review
--- NOTE | 2021-03-27 20:27 | PM.CONSULT ---
Providers/Reason For Consult Consulting Physician/Specialty*: Okeefe/urology Reason for Consult*: Urinary retention Attending Physician: Morenita Giron MD History of Present Illness History of Present Illness Jeremy Nichols is a 76 year old male well-known to me for history of BPH/obstruction and large bladder stone recently treated with ESWL and fragment evacuation. Was found to have a huge prostate at time of the procedure that was very friable. Required fulguration of the large intravesically protruding median lobe bleeding mucosa. Initially it was felt that he might have to stay overnight because of the potential for retention but he did void well initially and was discharged from outpatient surgery without any problems. The following day he was complaining of back spasms and some abdominal pain. I spoke with him on the phone and he stated that his voiding and actually improved and he was no longer having any hematuria and felt that he was voiding well without a feeling of incomplete emptying. Over the next several days though he started having increasing abdominal pain nausea vomiting increasing back pain. We spoke to him yesterday from the clinic he still felt that he was voiding okay but was having increasing abdominal pain. Ultimately he presented to the emergency room department and was discovered on CT scan to have a very distended bladder and bilateral hydroureteronephrosis. There was no clot in the bladder and no residual stones. His creatinine had bumped up to 1.4 and surprisingly his white count was 44.9. Was hyponatremic. He was admitted after catheter placement drained over a liter of fluid. He had immediate relief of his lower abdominal pain and gradual improvement in his back pain. Creatinine has decreased to 0.6. Repeat CBC is pending. Has been covered with antibiotics and work-up is ongoing to see if there is any other additional cause identifiable to explain the markedly elevated white count. I was consulted regarding his urinary issues Review of Systems Const: Reports: body aches; Denies: fever(s) or chills Eyes: Denies: change in vision ENMT: Denies: hoarseness Card: Denies: chest pain or palpitations Resp: Denies: dyspnea or wheezing GI: Reports: abdominal pain, nausea, vomiting and GI cramping : Reports: urinary frequency Musc: Denies: joint redness or joint warmth Skin/Breast: Denies: skin tenderness or jaundice Neuro: Denies: confusion or Slurred speech present Psych: Reports: anxiety (Situational anxiety); Denies: memory loss Endo: Denies: excessive sweating [place]/Lymph: Denies: easy bruising or easy bleeding All/Imm: Denies: acute wheezing Meds/Allergies Home Medications and Allergies Home Medications Medication Instructions Recorded Confirmed Last Taken Type amlodipine 5 mg tablet 5 mg PO BID 02/07/21 03/26/21 03/26/21 History atorvastatin 40 mg tablet 20 mg PO DAILY 02/07/21 03/26/21 03/26/21 History celecoxib 200 mg capsule 200 mg PO BID 02/07/21 03/26/21 03/26/21 History finasteride 5 mg tablet 5 mg PO DAILY 02/07/21 03/26/21 03/26/21 History coenzyme Q10 75 mg capsule 75 mg PO DAILY 02/19/21 03/26/21 03/26/21 History ciprofloxacin HCl 500 mg tablet 500 mg PO BID #20 tab 03/22/21 03/26/21 03/26/21 Rx tamsulosin 0.4 mg PO BIDWM #60 cap 03/23/21 03/26/21 03/26/21 Rx ascorbate calcium (vitamin C) 500 mg PO DAILY 03/26/21 03/26/21 03/19/21 History [Lakeisha-C] bisacodyl [Dulcolax (bisacodyl)] 5 mg PO DAILY PRN 03/26/21 03/26/21 Unknown History bisacodyl [Dulcolax (bisacodyl)] 10 mg FL DAILY PRN 03/26/21 03/26/21 03/26/21 History doxycycline hyclate 100 mg PO BID 03/26/21 03/26/21 03/26/21 History hydrocodone 5 mg-acetaminophen 325 1 tab PO Q6H PRN 3 Days #12 tab 03/26/21 03/26/21 03/26/21 Rx mg tablet Allergies Allergy/AdvReac Type Severity Reaction Status Date / Time No Known Allergies Allergy Verified 03/23/21 11:04 Current Medications Current Medications Generic Name Dose Route Start Last Admin Trade Name Freq PRN Reason Stop Dose Admin Acetaminophen 650 mg 03/27/21 01:42 03/27/21 12:24 Acetaminophen 325 Mg Tablet PO 650 mg Q6H PRN Administration Mild/Mod Pain Or Temp >/= 101 Amlodipine Besylate 5 mg 03/27/21 09:00 03/27/21 19:01 Amlodipine 5 Mg Tablet PO 5 mg BID ANASTASIA Administration Atorvastatin Calcium 20 mg 03/27/21 09:00 03/27/21 07:54 Atorvastatin 40 Mg Tablet PO 20 mg DAILY ANASTASIA Administration Enoxaparin Sodium 40 mg 03/27/21 01:45 03/27/21 02:07 Enoxaparin 40 Mg/0.4 Ml Syringe SUBCUT 40 mg Q24H ANASTASIA Administration Finasteride 5 mg 03/27/21 09:00 03/27/21 07:54 Finasteride 5 Mg Tablet PO 5 mg DAILY ANASTASIA Administration Sodium Chloride 1,000 mls @ 50 mls/hr 03/27/21 01:45 03/27/21 02:07 Sodium Chloride 0.9% IV 50 mls/hr .Q20H ANASTASIA Administration Piperacillin Sod/Tazobactam 100 mls @ 25 mls/hr 03/27/21 15:30 03/27/21 19:58 Sod 3.375 gm/ Sodium Chloride IV Infused Q8H ANASTASIA Infusion Protocol Potassium Phosphate 30 mmol/ 110 mls @ 25 mls/hr 03/27/21 18:30 03/27/21 20:02 Sodium Chloride IV 03/27/21 22:53 25 mls/hr ONCE ONE Administration Magnesium Oxide 800 mg 03/27/21 18:00 03/27/21 19:02 Magnesium Oxide 400 Mg Tablet PO 800 mg ONCE ANASTASIA Administration Pantoprazole Sodium 40 mg 03/27/21 09:00 03/27/21 07:[address] 40 Mg Tablet PO 40 mg DAILY ANASTASIA Administration Tamsulosin HCl 0.4 mg 03/27/21 08:00 03/27/21 19:02 Tamsulosin 0.4 Mg Capsule PO 0.4 mg BIDWM ANASTASIA Administration PFSH Acute PFSH: Medical History (Updated 03/27/21 @ 20:37 by Jim Okeefe MD) BPH (benign prostatic hyperplasia) s/p fulguration on 03/23/2021, due to bleeding from the median lobe Calculus in bladder Recurrent UTI Surgical History H/O lithotripsy Done on 03/23/2021 to a bladder stone History of lung biopsy Family History Mother , AT 60 Heart disease Father , AT 64 Diabetes Social History Smoking and tobacco status: former smoker Alcohol intake: never Marital status: / Current occupational status: retired History of recent travel: No Vitals/I&O/Wt Last Vital Signs Temp 98 F 03/27/21 19:58 Pulse 98 03/27/21 19:58 Resp 24 H 03/27/21 19:58 BP 157/58 03/27/21 19:58 Pulse Ox 91 03/27/21 19:58 03/27/21 03/27/21 03/27/21 06:59 14:59 22:59 Intake Total 1250 / 1250 50 / 50 320 / 370 Output Total 900 / 900 1050 / 1050 Balance 350 / 350 -1000 / -1000 320 / -680 Weight last 48 hrs Weight 160 lb Physical Exam Const: COMMON NORMALS: no acute distress, alert and well nourished GENERAL APPEARANCE: well kempt and well developed ORIENTATION/CONSCIOUSNESS: not confused HENMT: COMMON NORMALS: normocephalic and atraumatic HEAD & SCALP: normocephalic and atraumatic Eye: COMMON NORMALS: conjunctivae normal and no scleral icterus CONJUNCTIVA: Yes conjunctivae normal Neck/C-Spine: COMMON NORMALS: full ROM GENERAL: Yes normal visual inspection Lymph: LYMPHATIC: no lymphadenopathy noted Resp: COMMON NORMALS: normal respiratory effort EFFORT & INSPECTION: No labored and No Actively coughing Cardio: COMMON NORMALS: regular rate and regular rhythm RATE: regular rate RHYTHM: regular rhythm : BLADDER/KIDNEY EXAM: Yes bladder normal to palpation PENIS: normal penis MEATUS: meatus normal Neuro: COMMON NORMALS: no focal motor deficits SENSORIUM/ORIENTATION: Yes alert Psych: COMMON NORMALS: mental status grossly normal and Normal thought process present APPEARANCE: Yes grossly normal and Yes well kempt ATTITUDE: Yes calm and Yes engaged THOUGHT PROCESS: Normal thought process present Skin: COMMON NORMALS: no rashes or lesions noted and no jaundice GENERAL SKIN EXAM: no rashes or lesions noted Urinary Catheter Management^: Hdez: Cath Placed During This Visit: yes Reason for Continuing Indwelling Catheter: Acute Urinary Retention or Obstruction Urinary Catheter Date of Insertion: 03/26/21 Urinary Catheter Time of Insertion: 23:00 Data Micro: Micro: Microbiology 03/26/21 20:45 Blood Culture - Pr eliminary Blood [facility] 03/26/21 20:45 Blood Culture - Pr eliminary Blood SPECIMEN [facility] A&P Assessment and plan (1) Acute urinary retention: Post ESWL to bladder stone. Cleared. Status: Acute (2) Severe sepsis: Status: Acute (3) Bilateral hydronephrosis: Status: Acute (4) BPH (benign prostatic hyperplasia): Baseline huge prostate gland. Failed to void consistently following ESWL to bladder stone developing acute urinary retention Status: Acute Consult Attestations Medical Necessity Statement: See attending. Coding Level of Care Code Acute Plastic Cnc Machine Operator for Tamir Leggett Diagnoses Acute urinary retention R33.8 Severe sepsis A41.9; R65.20 Bilateral hydronephrosis N13.30 BPH (benign prostatic hyperplasia) N40.0
[2021-03-28] VITALS (9 sets, daily range): BP systolic 136–160; BP diastolic 77–83; PULSE 88–108; RESP 16–30; TEMP 36.6–37.8; O2SAT 90–96
--- NOTE | 2021-03-28 | CT_ITS ---
WS: [id number] CT CHEST TECHNIQUE: Noncontrast CT of the chest with coronal and sagittal reformatted images. CLINICAL INFORMATION: POSSIBLE MINIMAL INFILTRATE COMPARISON: PET CT February 14, 2021 CT abdomen pelvis March 26, 2021 DLP: 832.[address] scans at [facility] use at least one of these dose optimization techniques: automat ed exposure control; mA and/or kV adjustment per patient size (includes targeted exams where dose is matched to clinical indication); or iterative reconstruction. FINDINGS: Moderate chronic emphysematous changes. Small bilateral pleural effusions slightly increased since ye with bibasilar patchy infiltrates in the right greater than left lower lobes. Compressive ate lectasis right lower lobe with air bronchograms. Additional patchy infiltrates in the superior segmen t left lower lobe along the fissure and superior segment of the right lower lobe. Fibrotic appearing infiltrates along the left hilum may be due to radiation therapy. Aortic calcification. Coronary calcification. Trace pericardial fluid. Enlarged right anterior medias tinal lymph node measuring 2.1 x 1.5 cm is similar in appearance to the prior PET/CT considering diff erences in technique. CT/CT chest wo con [id number] IMPRESSION: 1. Moderate chronic emphysematous changes. 2. Small bilateral pleural effusions slightly increased since yesterday with b ibasilar patchy infiltrates in the right greater than left lower lobes. Additio nal patchy infiltrates in the superior segments of both lower lobes. Recommend correlation for pneumonia. 3. Partial airspace consolidation right lower lobe with air bronchograms. 4. Fibrotic appearing infiltrates in the left upper lobe along the fissure and left hilum likely due to radiation therapy. 5. Enlarged right anterior mediastinal lymph node measuring 2.1 x 1.5 cm is si milar in appearance to the prior PET/CT.
[2021-03-28] MEDS: enoxaparin 40 mg/0.4 mL Syringe SUBCUT (00:41)
[2021-03-28] MEDS: piperacillin-tazobactam 3.375 GM in sodium chloride 0.9% (plus) 100 ML IV ×4 (00:43→23:04)
[2021-03-28] MEDS: sodium chloride 0.9% 1,000 ML 50 ML IV ×2 (00:44→20:49)
[2021-03-28 05:27] LABS: Basophils # 0.1 10^3/uL (0.0-0.1); Basophils % 0.2 %; Eosinophils % 0.1 %; Hematocrit 34.5 % (42.0-52.0); Hemoglobin 11.6 g/dL (11.7-16.6); Lymphocytes # 1.5 10^3/uL (0.8-4.8); Lymphocytes % 4.8 %; Mean Corpuscular HGB Conc 33.6 g/dL (30.0-36.0); Mean Corpuscular Hemoglobin 28.9 pg (28.0-34.0); Mean Platelet Volume 9.6 fL (7.4-10.4); Monocytes # 1.4 10^3/uL (0.2-0.9); Monocytes % 4.5 %; Neutrophils # 27.43 10^3/uL (1.8-7.7); Neutrophils % 89.7 %; Nucleated Red Blood Cells % 0 %; Platelet Count 366 10^3/cmm (130-400); Red Blood Count 4.01 10^6/uL (4.1-5.3); Red Cell Distribution Width 14.4 % (12.1-15.1)
[2021-03-28 05:44] LABS: Magnesium 2.1 mg/dL (1.7-2.3); Phosphorus 1.9 mg/dL (2.5-4.5)
[2021-03-28 05:47] LABS: Alanine Aminotransferase 14 U/L (0-41); Albumin Level 2.8 g/dL (3.5-5.2); Alkaline Phosphatase 86 IU/L (40-130); Aspartate Amino Transferase 16 U/L (0-40); Blood Urea Nitrogen 12 mg/dL (8-23); Calcium 8.5 mg/dL (8.5-10.5); Carbon Dioxide 27 mmol/L (22-29); Chloride 99 mmol/L (98-107); Globulin 3.1 g/dL (1.3-4.6); Glucose 90 mg/dL (65-115); Potassium 3.3 mmol/L (3.5-5.1); Total Bilirubin 0.6 mg/dL (0.15-1.2); Total Protein 5.9 g/dL (6.6-8.7)
[2021-03-28 05:56] LABS: Anion Gap 11.3 (5-19); Osmolality Calculated 277 mOsm/kg (285-295); Sodium 134 mmol/L (136-145); White Blood Count 30.6 10^3/uL (4.0-10.0)
[2021-03-28] MEDS: atorvastatin 40 mg Tablet 20 MG PO (08:30)
[2021-03-28] MEDS: finasteride 5 mg Tablet PO (08:30)
[2021-03-28] MEDS: tamsulosin 0.4 mg Capsule PO ×2 (08:31→18:48)
[2021-03-28] MEDS: amlodipine 5 mg Tablet PO ×2 (08:31→18:51)
[2021-03-28] MEDS: pantoprazole DR 40 mg Tablet PO (08:31)
--- NOTE | 2021-03-28 09:11 | PC.CHAP ---
Pastoral Care Encounter/Spiritual Assessment Type of Contact [] Declined senior applications architect visit [] Patient/Family/Request visit [] Outpatient visit [] Follow-up visit [] Physician referral [] Code/Alert [x] Routine visit [] Staff referral [] Actively dying [] Patient sleeping [] Family support [] [] Out of room [] Palliative care [] [x] Receiving care in room [] Pre-surgical visit [] Trauma [] Long length of stay [] ICU visit [] Other: Relational/Emotional Strength [] Patient feels connected with others/family/visitors/staff [] Distress [] Loneliness/isolation [] Abandonment Spirituality of Patient [] Person of Uma [] Attends Mosque of their [place] [] Believes in Prayer [] Reads Bible or Islam materials [] There are Spiritual issues to be addressed Dental Assistant Interventions [x] Prayer [x] Active listening [x] Non-anxious presence [x] Spiritual/emotional support [] Crisis/trauma care [] Spiritual counseling [] Bereavement support [] Provided bereavement packet [] Provided Bible/devotional materials [] Provided toy/stuffed animal, coloring book to patient or family member [] Provided Communion [] Anointing/[place] [] Salvation [x] Completed spiritual assessment [] Other: Impact on Illness or Injury [] Angry [] Fearful [] Anxious [] Often cries [] Exhaustion [] Unable to work [] Unable to attend buddhism [] Unable to walk/stand [] Unable to read [] Unable to drive [] Unable to eat/drink [] Unable to sleep [] Unable to be with family [] Patient intubated [] Other: Summary patient doing so, so hard of hearing, but could communicate .. requested short visit with senior applications architect Time spent with patient 5 min
--- NOTE | 2021-03-28 11:30 | PC.NURSE ---
Physician instructed nurse to order Promethazine IM ONCE, and place an order for promethazine to be offered PRN prior to all meals PO. Also received orders to change dilaudid dose to 1mg IVP
--- NOTE | 2021-03-28 11:49 | PC.NURSE ---
Spoke at length with daughter Lorie . Chart reviewed. Care plan, labs, nutrition overview given. Questions answered. Teach back utilized. Spent approx 30 minutes on phone to ensure loop was closed. Daughter denies further questions. States I feel so much better now. Daughter Lorie gives consent for other daughter Minda (who is at bedside) to be added to PHI and receive information. Family requests Dr. Okeefe contact them via phone after he rounds with patient so they can get an update. Concerns outstanding: Poor appetite- Superior jello and finger snacks have been placed at bedside. Movement: Primary nurse in room now to assist patient with range of motion and help to move patient from bed to chair. Records: [place] nurse [place] [facility] [place] Myra [place] to have records sent. Loop closed. Family and patient concerns/questions addressed.
[2021-03-28] MEDS: magnesium hydroxide 30 mL UDC 60 ML PO (11:55)
[2021-03-28] MEDS: promethazine 25 mg/mL SDV 1 mL IM (11:56)
[2021-03-28] MEDS: HYDROcodone-acetaminophen 5-325 mg Tablet 1 TAB PO ×2 (12:07→23:11)
--- NOTE | 2021-03-28 13:10 | P.CONIM_ITS ---
Providers/Reason For Consult Consulting Physician/Specialty*: Art James MD Reason for Consult*: Colitis Attending Physician: Morenita Giron MD History of Present Illness History of Present Illness Chief Complaint: My right side hurts History of present illness: Jeremy Nichols is a 76 year old male benign prostatic hyperplasia and obstructive uropathy. Patient undergone urology procedure back in March 23, 2021 in the form of extracorporeal shockwave lithotripsy to a large bladder stone, cystoscopy with stone fragment evacuation and fulguration of bleeding prostate. Patient was admitted on the hospitalist service on 27 March 2021 with generalized abdominal pain that got worse over the last week and associated with nausea, and poor urine output. Patient was admitted on the hospitalist and a CT scan of the abdomen and pelvis was done that showed; 1. Prominent fluid in the small bowel without dilation may reflect an ileus or enteritis. 2. Mid sigmoid colon mild wall thickening with some edema about several diverticuli may reflect a mild diverticulitis in this area or simply nondistention of the bowel depending on the clinical scenario. 3. Bibasilar atelectasis versus minimal infiltrate. 4. Trace bilateral pleural effusions. 5. Air seen in the urinary bladder may be iatrogenic. 6. Moderate intrahepatic biliary dilation is likely chronic. 7. Moderate ascites in the abdomen, nonspecific. 8. Diverticulosis without diverticulitis. 9. Emphysematous changes. Because of the concomitant elevated WBC count and the finding of colitis is an incidental finding of the mid sigmoid colon, hospitalist service was concerned about patient's abdominal pain and he elected to consult general surgery for further evaluation. Patient gives history of lung cancer that he did receive radiation before and he also reports recent colonoscopies last one was done 6 months ago. Of insignificant findings per his description. The clinical encounter took place and the presence of patient's daughter. Patient reports that he did not have a bowel movement and not passing gas for a while. Just because he is not eating much. Review of Systems General: Reports: 10 or more systems reviewed and unremarkable except in HPI and below Meds/Allergies Home Medications and Allergies Home Medications Medication Instructions Recorded Confirmed Last Taken Type amlodipine 5 mg tablet 5 mg PO BID 02/07/21 03/26/21 03/26/21 History atorvastatin 40 mg tablet 20 mg PO DAILY 02/07/21 03/26/21 03/26/21 History celecoxib 200 mg capsule 200 mg PO BID 02/07/21 03/26/21 03/26/21 History finasteride 5 mg tablet 5 mg PO DAILY 02/07/21 03/26/21 03/26/21 History coenzyme Q10 75 mg capsule 75 mg PO DAILY 02/19/21 03/26/21 03/26/21 History ciprofloxacin HCl 500 mg tablet 500 mg PO BID #20 tab 03/22/21 03/26/21 03/26/21 Rx tamsulosin 0.4 mg PO BIDWM #60 cap 03/23/21 03/26/21 03/26/21 Rx ascorbate calcium (vitamin C) 500 mg PO DAILY 03/26/21 03/26/21 03/19/21 History [Lakeisha-C] bisacodyl [Dulcolax (bisacodyl)] 5 mg PO DAILY PRN 03/26/21 03/26/21 Unknown History bisacodyl [Dulcolax (bisacodyl)] 10 mg ID DAILY PRN 03/26/21 03/26/21 03/26/21 History doxycycline hyclate 100 mg PO BID 03/26/21 03/26/21 03/26/21 History hydrocodone 5 mg-acetaminophen 325 1 tab PO Q6H PRN 3 Days #12 tab 03/26/21 03/26/21 03/26/21 Rx mg tablet Allergies Allergy/AdvReac Type Severity Reaction Status Date / Time No Known Allergies Allergy Verified 03/28/21 13:36 Current Medications Current Medications Generic Name Dose Route Start Last Admin Trade Name Andrey PRN Reason Stop Dose Admin Acetaminophen 650 mg 03/27/21 01:42 03/27/21 12:24 Acetaminophen 325 Mg Tablet PO 650 mg Q6H PRN Administration Mild/Mod Pain Or Temp >/= 101 Hydrocodone Bitart/Acetaminophen 1 tab 03/27/21 02:06 03/28/21 12:07 Hydrocodone-Acetaminophen 5-325 Mg Tablet PO 1 tab Q6H PRN Administration Renal colic Amlodipine Besylate 5 mg 03/27/21 09:00 03/28/21 08:31 Amlodipine 5 Mg Tablet PO 5 mg BID ANASTASIA Administration Atorvastatin Calcium 20 mg 03/27/21 09:00 03/28/21 08:30 Atorvastatin 40 Mg Tablet PO 20 mg DAILY ANASTASIA Administration Enoxaparin Sodium 40 mg 03/27/21 01:45 03/28/21 00:41 Enoxaparin 40 Mg/0.4 Ml Syringe SUBCUT 40 mg Q24H ANASTASIA Administration Finasteride 5 mg 03/27/21 09:00 03/28/21 08:30 Finasteride 5 Mg Tablet PO 5 mg DAILY ANASTASIA Administration Sodium Chloride 1,000 mls @ 50 mls/hr 03/27/21 01:45 03/28/21 00:44 Sodium Chloride 0.9% IV 50 mls/hr .Q20H ANASTASIA Administration Piperacillin Sod/Tazobactam 100 mls @ 25 mls/hr 03/27/21 15:30 03/28/21 08:28 Sod 3.375 gm/ Sodium Chloride IV 12.5 mls/hr Q8H ANASTASIA Administration Protocol Potassium Phosphate 30 mmol/ 110 mls @ 25 mls/hr 03/28/21 10:56 03/28/21 12:24 Sodium Chloride IV 03/28/21 15:19 25 mls/hr ONCE ONE Administration Magnesium Oxide 800 mg 03/27/21 18:00 03/27/21 19:02 Magnesium Oxide 400 Mg Tablet PO 800 mg ONCE ANASTASIA Administration Pantoprazole Sodium 40 mg 03/27/21 09:00 03/28/21 08:[address] 40 Mg Tablet PO 40 mg DAILY ANASTASIA Administration Tamsulosin HCl 0.4 mg 03/27/21 08:00 03/28/21 08:31 Tamsulosin 0.4 Mg Capsule PO 0.4 mg BIDWM ANASTASIA Administration PFSH Acute PFSH: Medical History BPH (benign prostatic hyperplasia) s/p fulguration on 03/23/2021, due to bleeding from the median lobe Calculus in bladder Recurrent UTI Surgical History H/O lithotripsy Done on 03/23/2021 to a bladder stone History of lung biopsy Family History Mother , AT 60 Heart disease Father , AT 64 Diabetes Social History Smoking and tobacco status: former smoker Alcohol intake: never Marital status: / Current occupational status: retired History of recent travel: No Vitals/I&O/Wt Last Vital Signs Temp 98.7 F 03/28/21 12:00 Pulse 96 03/28/21 12:00 Resp 19 H 03/28/21 12:00 BP 146/83 03/28/21 12:00 Pulse Ox 96 03/28/21 12:00 03/27/21 03/28/21 03/28/21 22:59 06:59 14:59 Intake Total 1320 / 1370 260 / 1630 656.875 / 656.875 Output Total 250 / 1300 1200 / 2500 Balance 1070 / 70 -940 / -870 656.875 / 656.875 Weight last 48 hrs Weight 160 lb Physical Exam Narrative: EXAM NARRATIVE: Patient is conscious alert oriented X3 BMI 24.3 Head and neck examination PERRLA no masses no cervical lymphadenopathy no jaundice Cardiac examination audible S1-S2 no murmurs no gallops no arrhythmias Chest is clear bilateral,abscence of Rhonchi or wheezes,no surgical emphysema Abdomen right-sided tenderess nondistended soft no organomegaly guarding or rigidity/no signs of peritonitis Hdez catheter in place Urinary Catheter Management^: Hdez: Cath Placed During This Visit: yes Reason for Continuing Indwelling Catheter: Acute Urinary Retention or Obstruction Urinary Catheter Date of Insertion: 03/26/21 Urinary Catheter Time of Insertion: 23:00 Data Micro: Micro: Microbiology 03/26/21 20:33 Urine Culture - Pr eliminary Urine,Clean Catch Gram Negative R ods Yeast species 03/26/21 20:45 Blood Culture - Pr eliminary Blood NEGATIVE TO TERESSA E 03/26/21 20:45 Blood Culture - Pr eliminary Blood NEGATIVE TO TERESSA E A&P Assessment and plan (1) Diverticulitis: After history taking physical examination and reviewing the chart and images of the CT scan of the abdomen and pelvis with my personal interpretation, I do believe that the patient does have mild component of colitis which does not necessarily explain the high WBC count. Yet in the presence of UTI that would explain it more I would recommend that the patient be placed on Cipro Flagyl for his diverticulitis, no acute indication for general surgery intervention at this point. Further antimicrobial therapy will defer based on cultures and sensitivities per urinary analysis and culture We will continue to follow on the patient's progress Clear liquid diet for now Bowel regimen Thank you for consulting general surgery to participate taking care Mr. Nichols Status: Acute Consult Attestations Medical Necessity Statement: Ongoing inpatient hospitalization passing 2 midnights for medical optimization and UTI/colitis management Time Spent in Patient Care: (>than 50% of time spent in counselling and/or direct pt care on unit) . Coding Level of Care Code Acute Head Track Coach for Tamir Leggett Diagnoses Diverticulitis K57.92
[2021-03-28] MEDS: bisacodyl 5 mg Tablet PO (18:51)
--- NOTE | 2021-03-28 22:12 | PC.NURSE ---
Nurse called report to Suzy DUCKWORTH on med surg and patient was transferred from CSU by bed to Med Surg floor room [id number] with all personal belongings.
--- NOTE | 2021-03-28 22:19 | P.PN_ITS ---
Subjective Subjective: Interval history: Patient was seen today, and his other daughter was in the room. The daughter expressed interest in transferring the patient. The patient was unsure that he needed to be transferred at this time. The patient continues to complain of abdominal pain primarily in the right lower quadrant and in the left middle to lower quadrant. He continues to have poor appetite, and nausea. The patient's daughter wanted to know the reason for the leukocytosis, and wondered if it was due to diverticulitis. I responded that the amount of diverticulitis described on the CT scan is such that it was likely not a great contributor to the elevated leukocytosis. The patient also denies any fever, chills, chest pain, palpitations, shortness of breath at this time. Medications: Reviewed: Yes Vitals/I&O/Wt Last Vital Signs Temp 98.6 F 03/28/21 21:00 Pulse 95 03/28/21 20:00 Resp 30 H 03/28/21 20:00 BP 158/83 03/28/21 20:00 Pulse Ox 90 03/28/21 20:00 03/28/21 03/28/21 03/28/21 06:59 14:59 22:59 Intake Total 260 / 1630 730.208 / 494.512 0449.667 / 2226.875 Output Total 1200 / 2500 1300 / 1300 Balance -940 / -870 730.208 / 730.208 196.667 / 926.875 Physical Exam HENMT: COMMON NORMALS: normocephalic, atraumatic, external ears normal and Normal external nose present HEAD & SCALP: normocephalic and atraumatic FACE & SINUS: normal facial exam NOSE: Normal external nose present EXTERNAL EAR: Yes external ears normal MOUTH: Normal oral and palatal mucosa present Eye: COMMON NORMALS: Equal, round and reactive pupils present and conjunctivae normal CONJUNCTIVA: Yes conjunctivae normal PUPIL: Yes Equal, round and reactive pupils present EOM: No EOM abnormal Neck/C-Spine: COMMON NORMALS: Thyroid normal GENERAL: Yes trachea midline, Yes anterior neck swelling and Yes lymphadenopathy THYROID: Thyroid normal CAROTIDS: Yes normal carotid upstroke Resp: AUSCULTATION: diminished lung sounds bilateral (middle to lower lung lobes) Cardio: COMMON NORMALS: regular rate and regular rhythm RATE: regular rate RHYTHM: regular rhythm HEART SOUNDS: no click, no gallops, no murmurs and no rubs GI: COMMON NORMALS: Soft to palpation and No hepatosplenomegaly present PALPATION: Yes Soft to palpation, No Tenderness to palpation present (GI), No Guarding due to palpation present (GI), No Rigid due to palpation and Yes No hepatosplenomegaly present : BLADDER/KIDNEY EXAM: Yes catheter in place Extremity: COMMON NORMALS: no clubbing, cyanosis or edema Neuro: CRANIAL NERVES: Yes CN normal except as noted GAIT: Yes Unable to assess gait SENSORY EXAM: Yes Normal double simultaneous stimulation for sensation MOTOR EXAM: 5/5 motor strength present throughout Urinary Catheter Management^: Hdez: Cath Placed During This Visit: yes Reason for Continuing Indwelling Catheter: Other Urinary Catheter Date of Insertion: 03/26/21 Urinary Catheter Time of Insertion: 23:00 Data : 03/28/21 04:15 03/28/21 04:15 Micro: Microbiology 03/26/21 20:33 Urine Culture - Preliminary Urine,Clean Catch Gram Negative Rods Yeast species 03/26/21 20:45 Blood Culture - Preliminary Blood NEGATIVE TO DATE 03/26/21 20:45 Blood Culture - Preliminary Blood NEGATIVE TO DATE A&P Assessment and plan (1) Severe sepsis: Status: Acute (2) Neutrophilic leukocytosis: Status: Acute (3) Lung cancer: Status: Acute (4) ELKIN (acute kidney injury): Status: Acute (5) Acute urinary retention: Status: Acute (6) BPH (benign prostatic hyperplasia): Status: Acute (7) Recurrent UTI: Status: Acute (8) Calculus in bladder: Status: Resolved (9) Diverticulitis: Status: Acute Mr. Nichols is a 76yo man w/ a hx of lung cancer dx/ed in 2019 s/p XRT 6 mths ago, BPH, bladder calculus s/p shockwave lithotripsy & fulguration of the bladder due to bleeding of the median lobe of the prostate on 03/23/2021, who presented to the ED on 03/26/2021 w/ complaints of L. Sided back pain, that radiated to the abdomen and became more generalized, as well as poor p.o. intake. Post procedure on 03/23/2021, he was discharged with ciprofloxacin twice daily. In the ED, he was noted to have a leukocytosis of 44, hyponatremia of 127, and an ELKIN (Cr of 1.4, baseline unknown). He states that he has had 2 doses of the COVID-[address] abdomen pelvis was done that showed trace bilateral pleural effusion, possible infiltrate versus atelectasis in the lung, trace emphysematous changes, moderate ascites in the abdomen, prominent fluid in small bowel concerning for ileus versus enteritis, diverticulosis, and possible diverticulitis in the mid sigmoid colon. He was admitted for severe sepsis and initiated on Zosyn. # Severe SEpsis: Due to tachypnea, leukocytosis, and ELKIN. # UTI # Illeus vs Enteritis # Gram negative pneumonia # Leukocytosis: Infectious vs malignancy - Continue Zosyn, - UCx growing primarily yeast and some GNR. BCxs NGTD. - CT chest wo contrast is concerning for bilateral Gram negative pneumonia. - His Rapid antigen COVID-19 test is negative. Given the findings on CT chest, will order Covid PCR. We will also initiate vancomycin, azithromycin. -Given the yeast growing in his urine culture, will reorder blood cultures - fungal, and initiate caspofungin. - F/u peripheral smear - Continue slow IVF. # Acute Abdominal pain # Illeus vs Enteritis - Consulted General Surgeon, Dr. James. - Bowel regimen ordered. # Nausea/vomiting. Zofran q4h prn. Phenergan IM x 1 & prn also ordered also. # Electrolyte abnormalities: Replace prn # Metabolic acidosis: Due to emesis. Resolved w/ IVF. # Hx of lung cancer: Seen in spring. Will f/u w/ his Oncologist, Dr. Clinton. # BPH w/ bleeding median lobe of the prostate s/p fulguration, Acute urinary retention, Bladder calculus s/p lithotripsy - Continue Tamsulosin, Finasteride. Hdez catheter in place. Bladder scan ordered. - Consulted Urologist. # ELKIN - Pre-renal. Improving w/ IVF. # Hyponatremia: likely Hypovolemia due to emesis #HTN: Continued Amlodipine 5mg BID. DVT ppx:Lovenox Additional A&P Information Diverticulitis on CT scan: no clinical signs or symptoms to suggest diverticulitis. Has had normal BM today, passing flatus. GI soft diet and monitor closely. Past h/o divertcilutis 4-5 years ago. DVT ppx: lovenox Full code Attestations Medical Necessity Statement*: The patient requires continued hospitalization for his severe sepsis, leukocytosis, pneumonia and abdominal pain. Time Spent in Patient Care: Greater than 35 minutes (>than 50% of time spent in counselling and/or direct pt care on unit) . Coding Level of Care Code Acute Orthopedics Nurse for g Fwd Diagnoses Severe sepsis A41.9; R65.20 Neutrophilic leukocytosis D72.9 Lung cancer C34.90 ELKIN (acute kidney injury) N17.9 Acute urinary retention R33.8 BPH (benign prostatic hyperplasia) N40.0 Recurrent UTI N39.0 Calculus in bladder N21.0 Diverticulitis K57.92
[2021-03-28] MEDS: vancomycin 1,500 MG/300 ML PIGGYBACK 200 MG IV (23:08)
[2021-03-29] VITALS (7 sets, daily range): BP systolic 139–159; BP diastolic 64–89; PULSE 72–92; RESP 16–18; TEMP 37.1–37.7; O2SAT 89–94
[2021-03-29] MEDS: azithromycin 500 MG in sodium chloride 0.9% 250 ML 250 MG IV (04:06)
[2021-03-29] MEDS: enoxaparin 40 mg/0.4 mL Syringe SUBCUT (04:06)
[2021-03-29] MEDS: piperacillin-tazobactam 3.375 GM in sodium chloride 0.9% (plus) 100 ML IV ×3 (06:33→22:20)
[2021-03-29 07:13] LABS: Basophils % 0.2 %; Eosinophils # 0.2 10^3/uL (0.0-0.8); Eosinophils % 0.7 %; Hematocrit 37.2 % (42.0-52.0); Hemoglobin 11.8 g/dL (11.7-16.6); Lymphocytes # 0.9 10^3/uL (0.8-4.8); Lymphocytes % 3.6 %; Mean Corpuscular HGB Conc 31.7 g/dL (30.0-36.0); Mean Corpuscular Hemoglobin 28.6 pg (28.0-34.0); Mean Corpuscular Volume 90.1 fL (80-94); Mean Platelet Volume 9.6 fL (7.4-10.4); Monocytes # 1.7 10^3/uL (0.2-0.9); Monocytes % 7.1 %; Neutrophils # 21.25 10^3/uL (1.8-7.7); Neutrophils % 87.6 %; Nucleated Red Blood Cells % 0 %; Platelet Count 377 10^3/cmm (130-400); Red Blood Count 4.13 10^6/uL (4.1-5.3); Red Cell Distribution Width 14.6 % (12.1-15.1); White Blood Count 24.3 10^3/uL (4.0-10.0)
[2021-03-29 07:31] LABS: Alanine Aminotransferase 13 U/L (0-41); Albumin Level 2.7 g/dL (3.5-5.2); Alkaline Phosphatase 100 IU/L (40-130); Aspartate Amino Transferase 16 U/L (0-40); Blood Urea Nitrogen 18 mg/dL (8-23); Carbon Dioxide 29 mmol/L (22-29); Chloride 100 mmol/L (98-107); Globulin 3.1 g/dL (1.3-4.6); Glucose 137 mg/dL (65-115); Osmolality Calculated 286 mOsm/kg (285-295); Sodium 136 mmol/L (136-145); Total Bilirubin 0.5 mg/dL (0.15-1.2); Total Protein 5.8 g/dL (6.6-8.7)
[2021-03-29 07:41] LABS: Magnesium 2.2 mg/dL (1.7-2.3); Phosphorus 3.6 mg/dL (2.5-4.5)
[2021-03-29] MEDS: finasteride 5 mg Tablet PO (08:29)
[2021-03-29] MEDS: pantoprazole DR 40 mg Tablet PO (08:29)
[2021-03-29] MEDS: amlodipine 5 mg Tablet PO ×2 (08:29→19:19)
[2021-03-29] MEDS: tamsulosin 0.4 mg Capsule PO ×2 (08:29→19:19)
[2021-03-29] MEDS: atorvastatin 40 mg Tablet 20 MG PO (08:29)
--- NOTE | 2021-03-29 13:00 | P.PN_ITS ---
Subjective Subjective: Interval history: The patient complains of abdominal pain and bloating. States that he is passing gas, but is unable to have a BM. Is requesting for bowel regimen. He denies fever chills, CP, palpitations, SOB. I also spoke with the patient about the importance of a COVID-19 PCR. His son is in the room. THe patient is in agreement. Vitals/I&O/Wt Last Vital Signs Temp 99.8 F H 03/29/21 11:49 Pulse 92 03/29/21 11:49 Resp 17 03/29/21 11:49 BP 159/89 03/29/21 11:49 Pulse Ox 94 03/29/21 11:49 03/28/21 03/29/21 03/29/21 22:59 06:59 14:59 Intake Total 1596.667 / 2326.875 900 / 3226.875 570 / 570 Output Total 1300 / 1300 500 / 1800 Balance 296.667 / 1026.875 400 / 1426.875 570 / 570 Physical Exam HENMT: COMMON NORMALS: normocephalic, atraumatic, external ears normal and Normal external nose present HEAD & SCALP: normocephalic and atraumatic FACE & SINUS: normal facial exam NOSE: Normal external nose present EXTER NAL EAR: Yes external ears normal MOUTH: Normal oral and palatal mucosa present Eye: COMMON NORMALS: Equal, round and reactive pupils present and conjunctivae normal CONJUNCTIVA: Yes conjunctivae normal PUPIL: Yes Equal, round and reactive pupils present EOM: No EOM abnormal Neck/C-Spine: COMMON NORMALS: Thyroid normal GENERAL: Yes trachea midline, Yes anterior neck swelling and Yes lymphadenopathy THYROID: Thyroid normal CAROTIDS: Yes normal carotid upstroke Resp: AUSCULTATION: diminished lung sounds bilateral (middle to lower lung lobes) Cardio: COMMON NORMALS: regular rate and regular rhythm RATE: regular rate RHYTHM: regular rhythm HEART SOUNDS: no click, no gallops, no murmurs and no rubs GI: COMMON NORMALS: Soft to palpation and No hepatosplenomegaly present PALPATION: Yes Soft to palpation, No Tenderness to palpation present (GI), No Guarding due to palpation present (GI), No Rigid due to palpation and Yes No hepatosplenomegaly present : BLADDER/KIDNEY EXAM: Yes catheter in place Extremity: COMMON NORMALS: no clubbing, cyanosis or edema Neuro: CRANIAL NERVES: Yes CN normal except as noted GAIT: Yes Unable to assess gait SENSORY EXAM: Yes Normal double simultaneous stimulation for sensation MOTOR EXAM: 5/5 motor strength present throughout Urinary Catheter Management^: Hdez: Cath Placed During This Visit: yes Reason for Continuing Indwelling Catheter: Other Urinary Catheter Date of Insertion: 03/26/21 Urinary Catheter Time of Insertion: 23:00 Data : 03/30/21 07:55 03/30/21 07:55 Micro: Microbiology 03/26/21 20:33 Urine Culture - Preliminary Urine,Clean Catch Pseudomonas aeruginosa Yeast species 03/28/21 22:50 Blood Culture - Preliminary Blood SPECIMEN COLLECTED 03/28/21 22:45 Blood Culture - Preliminary Blood SPECIMEN COLLECTED A&P Assessment and plan (1) Severe sepsis: Status: Acute (2) Neutrophilic leukocytosis: Status: Acute (3) Lung cancer: Status: Acute (4) ELKIN (acute kidney injury): Status: Acute (5) Acute urinary retention: Status: Acute (6) BPH (benign prostatic hyperplasia): Status: Acute (7) Recurrent UTI: Status: Acute (8) Calculus in bladder: Status: Resolved (9) Diverticulitis: Status: Acute Mr. Nichols is a 76yo man w/ a hx of lung cancer dx/ed in 2019 s/p XRT 6 mths ago, BPH, bladder calculus s/p shockwave lithotripsy & fulguration of the bladder due to bleeding of the median lobe of the prostate on 03/23/2021, who presented to the ED on 03/26/2021 w/ complaints of L. Sided back pain, that radiated to the abdomen and became more generalized, as well as poor p.o. intake. Post procedure on 03/23/2021, he was discharged with ciprofloxacin twice daily. In the ED, he was noted to have a leukocytosis of 44, hyponatremia of 127, and an ELKIN (Cr of 1.4, baseline unknown). He states that he has had 2 doses of the COVID-[address] abdomen pelvis was done that showed trace bilateral pleural effusion, possible infiltrate versus atelectasis in the lung, trace emphysematous changes, moderate ascites in the abdomen, prominent fluid in small bowel concerning for ileus versus enteritis, diverticulosis, and possible diverticulitis in the mid sigmoid colon. He was admitted for severe sepsis and initiated on Zosyn. # Severe SEpsis: Due to tachypnea, leukocytosis, and ELKIN. # UTI # Illeus vs Enteritis # Gram negative pneumonia # Leukocytosis: Infectious vs malignancy - Continue Zosyn, - UCx growing primarily yeast and some GNR. BCxs NGTD. - CT chest wo contrast is concerning for bilateral Gram negative pneumonia. - His Rapid antigen COVID-19 test is negative. Given the findings on CT chest, will order Covid PCR. Initiated vancomycin, azithromycin on 03/28/2021. -Given the yeast growing in his urine culture, will reorder blood cultures - fungal and initiated caspofungin on 03/28/2021 at 11pm. - Initially planned on a peripheral smear, but given improvement in leukocytosis, will not order. - D/c'ed IVF. # Acute Abdominal pain # Illeus vs Enteritis - Consulted General Surgeon, Dr. James. - Bowel regimen ordered. # Nausea/vomiting. Zofran q4h prn. Phenergan IM x 1 & prn also ordered also. # Hx of lung cancer: Seen in [facility]. His Oncologist is Dr. Clinton in [facility]. # BPH w/ bleeding median lobe of the prostate s/p fulguration, Acute urinary retention, Bladder calculus s/p lithotripsy - Continue Tamsulosin, Finasteride. Hdez catheter in place. Bladder scan ordered. - Consulted Urologist. # ELKIN - Pre-renal. Improving w/ IVF. # Hyponatremia: likely Hypovolemia due to emesis. Resolved. # Electrolyte abnormalities: Replace prn # Metabolic acidosis: Due to emesis. Resolved w/ IVF. #HTN: Continued Amlodipine 5mg BID. DVT ppx:Lovenox Additional A&P Information Diverticulitis on CT scan: no clinical signs or symptoms to suggest diverticulitis. Has had normal BM today, passing flatus. GI soft diet and monitor closely. Past h/o divertcilutis 4-5 years ago. DVT ppx: lovenox Full code Attestations Medical Necessity Statement*: The patient requires continued hospitalization due to his severe sepsis, pneumonia, constipation and ileus. Time Spent in Patient Care: 16 - 35 minutes Coding Level of Care Code Acute Retort Furnace Helper for [facility] Fwd Exam Comprehensive Diagnoses Severe sepsis A41.9; R65.20 Neutrophilic leukocytosis D72.9 Lung cancer C34.90 ELKIN (acute kidney injury) N17.9 Acute urinary retention R33.8 BPH (benign prostatic hyperplasia) N40.0 Recurrent UTI N39.0 Calculus in bladder N21.0 Diverticulitis K57.92
[2021-03-29] MEDS: magnesium hydroxide 30 mL UDC 60 ML PO (14:16)
[2021-03-29] MEDS: bisacodyl 10 mg Supp PR (14:16)
[2021-03-29] MEDS: lactulose oral liq 20 gm/30 mL UDC 30 GM PO ×2 (19:20→20:53)
[2021-03-29] MEDS: sodium chloride 0.9% 1,000 ML 50 ML IV (22:19)
[2021-03-30] MEDS: enoxaparin 40 mg/0.4 mL Syringe SUBCUT (02:20)
[2021-03-30] MEDS: azithromycin 500 MG in sodium chloride 0.9% 250 ML 250 MG IV (03:59)
[2021-03-30 04:00] VITALS: BP 156/71; PULSE 93; RESP 16; TEMP 37.3; O2SAT 91
--- NOTE | 2021-03-30 06:16 | PC.NURSE ---
Patient had large soft BM this morning. Urine has some blood in it this morning as well which is new.
[2021-03-30] MEDS: piperacillin-tazobactam 3.375 GM in sodium chloride 0.9% (plus) 100 ML IV ×3 (06:33→22:54)
[2021-03-30 08:00] VITALS: BP 154/77; PULSE 93; RESP 17; TEMP 37; O2SAT 92
[2021-03-30 08:06] LABS: Basophils # 0.1 10^3/uL (0.0-0.1); Basophils % 0.3 %; Eosinophils # 0.3 10^3/uL (0.0-0.8); Eosinophils % 1.7 %; Hematocrit 38.6 % (42.0-52.0); Hemoglobin 12.4 g/dL (11.7-16.6); Lymphocytes # 1.6 10^3/uL (0.8-4.8); Lymphocytes % 8.5 %; Mean Corpuscular HGB Conc 32.1 g/dL (30.0-36.0); Mean Corpuscular Hemoglobin 28.7 pg (28.0-34.0); Mean Corpuscular Volume 89.4 fL (80-94); Mean Platelet Volume 9.5 fL (7.4-10.4); Monocytes # 1.7 10^3/uL (0.2-0.9); Monocytes % 9.1 %; Neutrophils # 14.94 10^3/uL (1.8-7.7); Neutrophils % 79.7 %; Nucleated Red Blood Cells % 0 %; Platelet Count 398 10^3/cmm (130-400); Red Blood Count 4.32 10^6/uL (4.1-5.3); Red Cell Distribution Width 14.5 % (12.1-15.1); White Blood Count 18.7 10^3/uL (4.0-10.0)
[2021-03-30 08:37] LABS: Alanine Aminotransferase 16 U/L (0-41); Albumin Level 2.7 g/dL (3.5-5.2); Alkaline Phosphatase 88 IU/L (40-130); Blood Urea Nitrogen 21 mg/dL (8-23); Carbon Dioxide 27 mmol/L (22-29); Chloride 100 mmol/L (98-107); Globulin 3.5 g/dL (1.3-4.6); Glucose 103 mg/dL (65-115); Osmolality Calculated 283 mOsm/kg (285-295); Sodium 135 mmol/L (136-145); Total Bilirubin 0.5 mg/dL (0.15-1.2); Total Protein 6.2 g/dL (6.6-8.7)
[2021-03-30 08:39] LABS: Anion Gap 11.7 (5-19); Aspartate Amino Transferase 20 U/L (0-40); Potassium 3.7 mmol/L (3.5-5.1)
[2021-03-30] MEDS: pantoprazole DR 40 mg Tablet PO (08:39)
[2021-03-30] MEDS: atorvastatin 40 mg Tablet 20 MG PO (08:40)
[2021-03-30] MEDS: amlodipine 5 mg Tablet PO ×2 (08:41→19:00)
[2021-03-30] MEDS: tamsulosin 0.4 mg Capsule PO ×2 (08:41→19:01)
[2021-03-30] MEDS: finasteride 5 mg Tablet PO (08:41)
--- NOTE | 2021-03-30 09:37 | PC.SOCIAL ---
IMM update IMM upated Pg. 2 updated with patient. Patient verbalize an understanding. No questions voiced. Initialed, dated, time and placed in chart.
--- NOTE | 2021-03-30 10:29 | XR_ITS ---
WS: [id number] Acute abdomen series, 03/30/2021 Clinical Data: Abdominal bloating Comparison: KUB, 03/23/2021. Findings: In the chest there are no nodules or masses. There is elevation of the right diaphragm with a right pleural effusion. The heart is normal. No pneumonia or pneumothorax is seen. The pulmonary v ascularity is not increased. The aortic arch shows calcification. No free air is seen beneath the diaphragms. No abnormal intra-abdominal masses or calcifications are seen. The small bowel loops are dilated. There is minimal air in the colon. 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 XR/XR acute abdomen series 16898 Impression: 1. Elevation of the right diaphragm with right pleural effusion. 2. Dilated small bowel consistent with small bowel obstruction.
--- NOTE | 2021-03-30 10:53 | P.PN_ITS ---
Subjective Subjective: Interval history: [place] to the nursing staff as well as the patient and his son, the patient had 6-7 large and formed bowel movements. Patient is complaining today of abdominal bloating, early satiety if he attempts to eat much. He does state that his abdominal pain has improved since he had the bowel movements. He denies any fever, chills. The patient and his family members are requesting for probiotics for the patient. [place] to the patient and his family members as well as nursing staff, patient did have an episode of hematuria morning. The patient denies any trauma or when his catheter by mistake. Medications: Reviewed: Yes Vitals/I&O/Wt Last Vital Signs Temp 98.6 F 03/30/21 08:00 Pulse 93 03/30/21 08:00 Resp 17 03/30/21 08:00 BP 154/77 03/30/21 08:00 Pulse Ox 92 03/30/21 08:00 03/29/21 03/30/21 03/30/21 22:59 06:59 14:59 Intake Total 1460 / 2390 568.333 / 2958.333 220 / 220 Output Total 400 / 400 Balance 1460 / 2390 168.333 / 2558.333 220 / 220 Physical Exam HENMT: COMMON NORMALS: normocephalic, atraumatic, external ears normal and Normal external nose present HEAD & SCALP: normocephalic and atraumatic FACE & SINUS: normal facial exam NOSE: Normal external nose present EXTERNAL EAR: Yes external ears normal MOUTH: Normal oral and palatal mucosa present Eye: COMMON NORMALS: Equal, round and reactive pupils present and conjunctivae normal CONJUNCTIVA: Yes conjunctivae normal PUPIL: Yes Equal, round and reactive pupils present EOM: No EOM abnormal Neck/C-Spine: COMMON NORMALS: Thyroid normal GENERAL: Yes trachea midline, Yes anterior neck swelling and Yes lymphadenopathy THYROID: Thyroid normal CAROTIDS: Yes normal carotid upstroke Resp: AUSCULTATION: diminished lung sounds on the right (R. middle lung lobes) and bilateral (lower lower lung lobes) Cardio: COMMON NORMALS: regular rate and regular rhythm RATE: regular rate RHYTHM: regular rhythm HEART SOUNDS: no click, no gallops, no murmurs and no rubs GI: COMMON NORMALS: No hepatosplenomegaly present PALPATION: Yes Firmness to palpation present (GI), No Tenderness to palpation present (GI), No Guarding due to palpation present (GI), No Rigid due to palpation and Yes No hepatosplen omegaly present : BLADDER/KIDNEY EXAM: Yes catheter in place Extremity: COMMON NORMALS: no clubbing, cyanosis or edema Neuro: CRANIAL NERVES: Yes CN normal except as noted GAIT: Yes Unable to assess gait SENSORY EXAM: Yes Normal double simultaneous stimulation for sensation MOTOR EXAM: 5/5 motor strength present throughout Urinary Catheter Management^: Joy: Cath Placed During This Visit: yes Reason for Continuing Indwelling Catheter: Acute Urinary Retention or Obstructio n Urinary Catheter Date of Insertion: 03/26/21 Urinary Catheter Time of Insertion: 23:00 Data : 03/30/21 07:55 03/30/21 07:55 Micro: Microbiology 03/28/21 22:50 Blood Culture - Preliminary Blood NEGATIVE TO DATE 03/28/21 22:45 Blood Culture - Preliminary Blood NEGATIVE TO DATE 03/26/21 20:33 Urine Culture - Preliminary Urine,Clean Catch Pseudomonas aeruginosa Yeast species A&P Assessment and plan (1) Severe sepsis: Status: Acute (2) Neutrophilic leukocytosis: Status: Acute (3) Lung cancer: Status: Acute (4) ELKIN (acute kidney injury): Status: Acute (5) Acute urinary retention: Status: Acute (6) BPH (benign prostatic hyperplasia): Status: Acute (7) Recurrent UTI: Status: Acute (8) Calculus in bladder: Status: Resolved (9) Diverticulitis: Status: Acute Mr. Nichols is a 76yo man w/ a hx of lung cancer dx/ed in 2019 s/p XRT 6 mths ago, BPH, bladder calculus s/p shockwave lithotripsy & fulguration of the bladder due to bleeding of the median lobe of the prostate on 03/23/2021, who presented to the ED on 03/26/2021 w/ complaints of L. Sided back pain, that radiated to the abdomen and became more generalized, as well as poor p.o. intake. Post procedure on 03/23/2021, he was discharged with ciprofloxacin twice daily. In the ED, he was noted to have a leukocytosis of 44, hyponatremia of 127, and an ELKIN (Cr of 1.4, baseline unknown). He states that he has had 2 d oses of the COVID-[address] abdomen pelvis was done that showed trace bilateral pleural effusion, possible infiltrate versus atelectasis in the lung, trace emphysematous changes, moderate ascites in the abdomen, prominent fluid in small bowel concerning for ileus versus enteritis, diverticulosis, and possible diverticulitis in the mid sigmoid colon. He was admitted for severe sepsis and initiated on Zosyn. # Severe SEpsis: Due to tachypnea, leukocytosis, and ELKIN. # Pseudomonas and UTI # Illeus vs Enteritis # Gram negative pneumonia # Leukocytosis: Infectious vs malignancy - Continue Zosyn, - UCx growing primarily yeast and some GNR. BCxs NGTD. - CT chest wo contrast is concerning for bilateral Gram negative pneumonia. - His Rapid antigen COVID-19 test is negative. Given the findings on CT chest, will order Covid PCR. Initiated vancomycin, azithromycin on 03/28/2021. -Given the yeast growing in his urine culture, will reorder blood cultures - fungal and initiated caspofungin on 03/28/2021 at 11pm. Asked Lab on 03/30/2021 to speciate the yeast. - Initially planned on a peripheral smear, but given improvement in leukocytosis, will not order. - D/c'ed IVF. # Acute Abdominal pain # Illeus vs Enteritis # constipation - Consulted General Surgeon, Dr. James. - Bowel regimen ordered. - Ordered Abdominal Xray on 03/30 to evaluate. -Ordered probiotic per patient and family members request # Nausea/vomiting. Zofran q4h prn. Phenergan IM x 1 & prn also ordered also. #Hematuria- noted in joy catheter on 03/30/2021. Will reconsult the urologist. # BPH w/ bleeding median lobe of the prostate s/p fulguration, Acute urinary retention, Bladder calculus s/p lithotripsy - Continue Tamsulosin, Finasteride. Joy catheter in place. Bladder scan ordered. - Consulted Urologist. #Hematuria- noted in joy catheter on 03/30/2021. Will reconsult the urologist. # ELKIN - Pre-renal. Resolved # Hyponatremia: likely Hypovolemia due to emesis. Resolved. # Electrolyte abnormalities: Replace prn # Metabolic acidosis: Due to emesis. Resolved w/ IVF. #HTN: Continued Amlodipine 5mg BID. # Hx of lung cancer: Seen in spring [facility]. His Oncologist is Dr. Clinton in [facility]. DVT ppx:Lovenox Diet: CLear liquid- advance as tolerated Additional A&P Information Diverticulitis on CT scan: no clinical signs or symptoms to suggest diverticulitis. Has had normal BM today, passing flatus. GI soft diet and monitor closely. Past h/o divertcilutis 4-5 years ago. DVT ppx: lovenox Full code Attestations Medical Necessity Statement*: Patient requires continued hospitalization due to abdominal ileus, nausea, hematuria, and severe sepsis treatment. Coding Level of Care Code Acute Project Management Professor for g Fwd Diagnoses Severe sepsis A41.9; R65.20 Neutrophilic leukocytosis D72.9 Lung cancer C34.90 ELKIN (acute kidney injury) N17.9 Acute urinary retention R33.8 BPH (benign prostatic hyperplasia) N40.0 Recurrent UTI N39.0 Calculus in bladder N21.0 Diverticulitis K57.92
[2021-03-30] MEDS: lactobacillus 1 Tablet 1 TAB PO ×3 (11:46→21:54)
[2021-03-30 12:00] VITALS: BP 159/68; PULSE 95; RESP 17; TEMP 37; O2SAT 93
--- NOTE | 2021-03-30 13:19 | P.PN_ITS ---
Subjective Subjective: Interval history: Patient overall feels well in comparison to last time I have seen him, continues to pass gas and having bowel movements. In the interim patient undergone chest x-ray and KUB that showed; 1. Elevation of the right diaphragm with right pleural effusion. 2. Dilated small bowel consistent with small bowel obstruction. Medications: Reviewed: Yes Vitals/I&O/Wt Last Vital Signs Temp 98.6 F 03/30/21 12:00 Pulse 95 03/30/21 12:00 Resp 17 03/30/21 12:00 BP 159/68 03/30/21 12:00 Pulse Ox 93 03/30/21 12:00 03/29/21 03/30/21 03/30/21 22:59 06:59 14:59 Intake Total 1460 / 2390 568.333 / 2958.333 220 / 220 Output Total 400 / 400 Balance 1460 / 2390 168.333 / 2558.333 220 / 220 Physical Exam Narrative: EXAM NARRATIVE: Patient is conscious alert oriented X3 BMI 24.3 Head and neck examination PERRLA no masses no cervical lymphadenopathy no jaundice Abdomen mild to moderate distention ,non TENDER soft no organomegaly guarding or rigidity/no signs of peritonitis Urinary Catheter Management^: Hdez: Cath Placed During This Visit: yes Reason for Continuing Indwelling Catheter: Acute Urinary Retention or Obstruction Urinary Catheter Date of Insertion: 03/26/21 Urinary Catheter Time of Insertion: 23:00 Data : 03/30/21 07:55 03/30/21 07:55 Micro: Microbiology 03/26/21 20:33 Urine Culture - Preliminary Urine,Clean Catch Pseudomonas aeruginosa Yeast species 03/28/21 22:50 Blood Culture - Preliminary Blood NEGATIVE TO DATE 03/28/21 22:45 Blood Culture - Preliminary Blood NEGATIVE TO DATE A&P Assessment and plan (1) Ileus: After history taking physical examination and reviewing the chart and images of the x-rays with my personal interpretation, as I do appreciate gas all the way to the rectum I do not believe that the patient has bowel obstruction yet he does have an component of ileus likely attributed to his underlying UTI as well as prolonged recumbency in bed. We will keep n.p.o. for now with ice chips if patient starts having any vomiting I would advise to obstetrics gyn physician an NG tube to low intermittent wall suction. Correction of electrolytes if any per hospitalist Incentive spirometer every hour and encourage ambulation with assistance The plan of care has been discussed with the patient and his son in the presence of the nursing staff Christa. Assurance and education All questions have been answered and all concerns have been addressed to patient's satisfaction. Status: Acute Attestations Medical Necessity Statement*: Ongoing inpatient hospitalization passing 2 midnights for sepsis, pneumonia and ileus. Time Spent in Patient Care: (>than 50% of time spent in counselling and/or direct pt care on unit) . Coding Level of Care Code Acute Regional Retail Sales Manager for Chg F[employer] Diagnoses Ileus K56.7
[2021-03-30] MEDS: HYDROcodone-acetaminophen 5-325 mg Tablet 1 TAB PO ×2 (14:24→21:57)
[2021-03-30] MEDS: lactulose oral liq 20 gm/30 mL UDC 30 GM PO (14:25)
[2021-03-30] MEDS: sodium chloride 0.9% 1,000 ML 50 ML IV (14:31)
[2021-03-30 15:56] LABS: Coronavirus Test Green County Not Detected
[2021-03-30 16:00] VITALS: BP 148/73; PULSE 93; RESP 18; TEMP 38.2; O2SAT 91
--- NOTE | 2021-03-30 17:48 | PM.PN ---
Subjective Subjective: Interval history: Urology follow-up Chart reviewed, patient interviewed, discussion with hospitalist. Overall patient is feeling well from a urologic perspective. He did have some transient hematuria today but it was a relatively small amount and his urine has cleared since that time. Not surprising given the previous findings at cystoscopy with a very large prostate and UTI. Tolerating the catheter reasonably well. We reviewed timing for catheter removal. I expect he does have some cystopathy from over stretching of the bladder at time of postop retention and feel that the catheter does have merit in helping recovery of detrusor function. Leaning toward leaving the catheter in a discharge and doing voiding trial self-catheterization training etc. on outpatient basis after his infection has been completely resolved. We spent about 35 minutes [id number] conversation with the patient and his son. Questions were answered. They seemed content with my answers and expressed understanding regarding the plans as outlined. Vitals/I&O/Wt Last Vital Signs Temp 100.7 F H 03/30/21 16:00 Pulse 93 03/30/21 16:00 Resp 18 03/30/21 16:00 BP 148/73 03/30/21 16:00 Pulse Ox 91 03/30/21 16:00 03/30/21 03/30/21 03/30/21 06:59 14:59 22:59 Intake Total 568.333 / 2958.333 470 / 470 Output Total 400 / 400 700 / 700 Balance 168.333 / 2558.333 470 / 470 -700 / -230 Physical Exam Const: COMMON NORMALS: no acute distress, alert and well nourished GENERAL APPEARANCE: well kempt and well developed ORIENTATION/CONSCIOUSNESS: not confused HENMT: COMMON NORMALS: normocephalic and atraumatic HEAD & SCALP: normocephalic and atraumatic Eye: COMMON NORMALS: no scleral icterus Neck/C-Spine: COMMON NORMALS: full ROM Resp: COMMON NORMALS: normal respiratory effort EFFORT & INSPECTION: No labored and No Actively coughing : OTHER: Urine is clear yellow Neuro: SENSORIUM/ORIENTATION: Yes alert Psych: COMMON NORMALS: mental status grossly normal APPEARANCE: Yes grossly normal and Yes well kempt ATTITUDE: Yes calm and Yes engaged Skin: COMMON NORMALS: no rashes or lesions noted GENERAL SKIN EXAM: no rashes or lesions noted Urinary Catheter Management^: Hdez: Cath Placed During This Visit: yes Reason for Continuing Indwelling Catheter: Acute Urinary Retention or Obstruction Urinary Catheter Date of Insertion: 03/26/21 Urinary Catheter Time of Insertion: 23:00 Data : 03/30/21 07:55 03/30/21 07:55 Micro: Microbiology 03/26/21 20:33 Urine Culture - Final Urine,Clean Catch Pseudomonas aeruginosa Gerri albicans 03/28/21 22:50 Blood Culture - Preliminary Blood NEGATIVE TO DATE 03/28/21 22:45 Blood Culture - Preliminary Blood NEGATIVE TO DATE A&P Assessment and plan (1) Acute urinary retention: Post ESWL to bladder stone. Does have a longstanding history of BPH/obstruction but with significant improvement over time with medical therapy of FINASTERIDE and tamsulosin. He felt like his baseline voiding was actually pretty normal prior to Status: Acute (2) Severe sepsis: Improving. White count is down to 18.7 today. Status: Acute (3) Bilateral hydronephrosis: Secondary to bladder light obstruction Status: Acute (4) BPH (benign prostatic hyperplasia): Baseline huge prostate gland. Failed to void consistently following ESWL to bladder stone developing acute urinary retention Status: Acute Attestations Medical Necessity Statement*: See attending. Coding Level of Care Code Acute Medical Office Technologist for Tamir Leggett Diagnoses Acute urinary retention R33.8 Severe sepsis A41.9; R65.20 Bilateral hydronephrosis N13.30 BPH (benign prostatic hyperplasia) N40.0
[2021-03-30 20:00] VITALS: BP 136/74; PULSE 96; RESP 18; TEMP 37.1; O2SAT 95
[2021-03-31] VITALS: BP 147/72; PULSE 87; RESP 16; TEMP 36.9; O2SAT 91
[2021-03-31] MEDS: enoxaparin 40 mg/0.4 mL Syringe SUBCUT (02:08)
[2021-03-31 04:00] VITALS: BP 149/71; PULSE 91; RESP 16; TEMP 36.9; O2SAT 92
[2021-03-31] MEDS: azithromycin 500 MG in sodium chloride 0.9% 250 ML 250 MG IV (04:02)
[2021-03-31] MEDS: piperacillin-tazobactam 3.375 GM in sodium chloride 0.9% (plus) 100 ML IV ×3 (06:31→22:45)
[2021-03-31] MEDS: HYDROcodone-acetaminophen 5-325 mg Tablet 1 TAB PO ×2 (06:40→16:58)
[2021-03-31 07:33] LABS: Basophils # 0.1 10^3/uL (0.0-0.1); Basophils % 0.5 %; Eosinophils # 0.6 10^3/uL (0.0-0.8); Eosinophils % 3.2 %; Hematocrit 35.7 % (42.0-52.0); Hemoglobin 11.1 g/dL (11.7-16.6); Lymphocytes # 1.7 10^3/uL (0.8-4.8); Lymphocytes % 9.2 %; Mean Corpuscular HGB Conc 31.1 g/dL (30.0-36.0); Mean Corpuscular Hemoglobin 28.6 pg (28.0-34.0); Mean Platelet Volume 10.1 fL (7.4-10.4); Monocytes # 1.8 10^3/uL (0.2-0.9); Monocytes % 9.8 %; Neutrophils # 14.06 10^3/uL (1.8-7.7); Neutrophils % 76.5 %; Nucleated Red Blood Cells % 0 %; Platelet Count 402 10^3/cmm (130-400); Red Blood Count 3.88 10^6/uL (4.1-5.3); Red Cell Distribution Width 14.6 % (12.1-15.1); White Blood Count 18.4 10^3/uL (4.0-10.0)
--- NOTE | 2021-03-31 07:48 | P.PN_ITS ---
Subjective Subjective: Interval history: Urology follow-up: Continues to improve clinically. Has had multiple bowel movements which is helped his abdominal discomfort. Denies any significant complaints related to the catheter. His urine is staying relatively clear. No fever or chills. His T-max yesterday was 100.7 but he has been afebrile since. White count still slowly declining today at 18.4 down from 18.7 yesterday. Good renal function noted on creatinine. Reviewed again the plans regarding bladder rest with indwelling Hdez catheter until probably sometime mid next week and then a voiding trial in my office with [facility] instruction. We will need to be continued on antibiotics at discharge. Vitals/I&O/Wt Last Vital Signs Temp 98.5 F 03/31/21 04:00 Pulse 91 03/31/21 04:00 Resp 16 03/31/21 04:00 BP 149/71 03/31/21 04:00 Pulse Ox 92 03/31/21 04:00 03/30/21 03/31/21 03/31/21 22:59 06:59 14:59 Intake Total 100 / 570 100 / 670 250 / 250 Output Total 700 / 700 800 / 1500 Balance -600 / -130 -700 / -830 250 / 250 Physical Exam Const: COMMON NORMALS: no acute distress and alert : OTHER: No recurrent gross hematuria. Catheter functioning well. Neuro: SENSORIUM/ORIENTATION: Yes alert Psych: COMMON NORMALS: mental status grossly normal, Normal thought process present and cooperative ATTITUDE: Yes calm and Yes engaged THOUGHT PROCESS: Normal thought process present Urinary Catheter Management^: Hdez: Cath Placed During This Visit: yes Reason for Continuing Indwelling Catheter: Acute Urinary Retention or Obstructio n Urinary Catheter Date of Insertion: 03/26/21 Urinary Catheter Time of Insertion: 23:00 Data : 03/31/21 05:56 03/30/21 07:55 Micro: Microbiology 03/26/21 20:33 Urine Culture - Final Urine,Clean Catch Pseudomonas aeruginosa Gerri albicans A&P Assessment and plan (1) Acute urinary retention: Post ESWL to bladder stone. Does have a longstanding history of BPH/obstruction but with significant improvement over time with medical therapy of FINASTERIDE and tamsulosin. He felt like his baseline voiding was actually pretty normal prior to postop retention. We will plan on leaving the catheter in until mid next week for voiding trial on outpatient basis with [facility] instruction following removal. Hopefully by that time has had enough detruser recovery such that he would be able to void at baseline hopefully better after the stone has been removed. We will need to continue both finasteride and tamsulosin and discharge as he had been taking. Status: Acute (2) Severe sepsis: Improving. Slow reduction. 18.4 today Status: Acute (3) Bilateral hydronephrosis: Secondary to bladder outlet obstruction Status: Acute (4) BPH (benign prostatic hyperplasia): Baseline huge prostate gland. Failed to void consistently following ESWL to bladder stone developing acute urinary retention Status: Acute Attestations Medical Necessity Statement*: See attending Coding Level of Care Code Acute Patient Insurance Clerk for Tamir Leggett Diagnoses Acute urinary retention R33.8 Severe sepsis A41.9; R65.20 Bilateral hydronephrosis N13.30 BPH (benign prostatic hyperplasia) N40.0
[2021-03-31 07:58] LABS: Alanine Aminotransferase 14 U/L (0-41); Albumin Level 2.6 g/dL (3.5-5.2); Alkaline Phosphatase 94 IU/L (40-130); Anion Gap 8.3 (5-19); Aspartate Amino Transferase 19 U/L (0-40); Blood Urea Nitrogen 17 mg/dL (8-23); Calcium 7.5 mg/dL (8.5-10.5); Carbon Dioxide 27 mmol/L (22-29); Chloride 103 mmol/L (98-107); Globulin 2.9 g/dL (1.3-4.6); Glucose 74 mg/dL (65-115); Osmolality Calculated 280 mOsm/kg (285-295); Potassium 3.3 mmol/L (3.5-5.1); Sodium 135 mmol/L (136-145); Total Bilirubin 0.6 mg/dL (0.15-1.2); Total Protein 5.5 g/dL (6.6-8.7)
[2021-03-31 08:00] VITALS: BP 134/73; PULSE 80; RESP 18; TEMP 36.6; O2SAT 97
[2021-03-31] MEDS: amlodipine 5 mg Tablet PO ×2 (10:12→17:58)
[2021-03-31] MEDS: atorvastatin 40 mg Tablet 20 MG PO (10:12)
[2021-03-31] MEDS: tamsulosin 0.4 mg Capsule PO ×2 (10:12→17:59)
[2021-03-31] MEDS: finasteride 5 mg Tablet PO (10:13)
[2021-03-31] MEDS: pantoprazole DR 40 mg Tablet PO (10:13)
[2021-03-31] MEDS: lactobacillus 1 Tablet 1 TAB PO ×3 (10:13→16:58)
[2021-03-31] MEDS: sodium chloride 0.9% 1,000 ML 50 ML IV (10:21)
[2021-03-31 12:00] VITALS: BP 138/73; PULSE 88; RESP 18; TEMP 37.1; O2SAT 94
[2021-03-31 13:19] LABS: Magnesium 2.3 mg/dL (1.7-2.3); Phosphorus 2.1 mg/dL (2.5-4.5)
[2021-03-31 16:00] VITALS: BP 124/74; PULSE 93; RESP 18; TEMP 37; O2SAT 94
--- NOTE | 2021-03-31 16:46 | PM.PN ---
Subjective Subjective: Interval history: Patient was seen and examined this morning, when I entered he was enjoying his soda, patient is stating that today all of a sudden around 6 AM he started feeling hungry he thinks his appetite is back he had 1 semisolid loose stool today, passing flatus, still feels bloated but endorses feeling better His diet was advanced on 03/31 which he tolerated very well Vitals/I&O/Wt Last Vital Signs Temp 98.6 F 03/31/21 16:00 Pulse 93 03/31/21 16:00 Resp 18 03/31/21 16:00 BP 124/74 03/31/21 16:00 Pulse Ox 94 03/31/21 16:00 03/31/21 03/31/21 03/31/21 06:59 14:59 22:59 Intake Total 100 / 670 2591.667 / 2591.667 Output Total 800 / 1500 Balance -700 / -830 2591.667 / 2591.667 Physical Exam Narrative: EXAM NARRATIVE: Very pleasant cooperative male He was sitting in his bedside when I entered the room drinking enjoying his soda S1, S2 no signs of heart failure or murmur Abdomen distended, bloated with obesity bowel sounds hyperactive No signs of peritonitis Low symmetry mild 1+ pitting edema bilaterally Awake alert oriented x3 GCS 15 EOMI, PERRLA No sign of cellulitis No joint swelling Appropriate mood and affect Urinary Catheter Management^: Hdez: Cath Placed During This Visit: yes Reason for Continuing Indwelling Catheter: Acute Urinary Retention or Obstruction Urinary Catheter Date of Insertion: 03/26/21 Urinary Catheter Time of Insertion: 23:00 Data : 03/31/21 05:56 03/31/21 05:56 Micro: Microbiology 03/26/21 20:33 Urine Culture - Final Urine,Clean Catch Pseudomonas aeruginosa Gerri albicans A&P Assessment and plan (1) Severe sepsis: Status: Acute (2) Ileus: Status: Acute (3) BPH (benign prostatic hyperplasia): Status: Acute (4) ELKIN (acute kidney injury): Status: Acute (5) Diverticulitis: Status: Acute Additional A&P Information Severe sepsis: Resolved Secondary to Pseudomonas UTI & Gerri albicans I will give him oral fluconazole for Gerri and continue Zosyn to finish 7-10 days for urosepsis, no signs of pyelonephritis, hence not needing 2 weeks of antibiotic, no bacteremia noted, no signs of invasive fungal infection Zosyn would also suffice simple diverticulitis Ileus: Advance diet to full liquid patient tolerated clear liquid diet today, endorsing his appetite is back and he wants to eat, had 1 semisolid bowel movement in the Urinary retention with history of BPH Dr. Okeefe consulted, his recommendations are appreciated Continue tamsulosin and finasteride Hematuria resolved Voiding trial on outpatient basis CT abdomen pelvis did not show hydronephrosis History of lung cancer: Follows up with his oncologist in [place] Dr. Clinton Full code DVT prophylaxis Lovenox Full liquid diet Attestations Medical Necessity Statement*: Anticipating discharge after 10 days of IV Zosyn antibiotic regimen for urosepsis Time Spent in Patient Care: 30mins Coding Level of Care Code Acute Technician Preventative Medicine for Chg Fwd Diagnoses Severe sepsis A41.9; R65.20 Ileus K56.7 BPH (benign prostatic hyperplasia) N40.0 ELKIN (acute kidney injury) N17.9 Diverticulitis K57.92
[2021-03-31] MEDS: potassium chloride ER 20 mEq Tablet 40 MEQ PO (17:59)
[2021-03-31] MEDS: phosphorus 250 mg Tablet PO (17:59)
[2021-03-31 19:46] VITALS: BP 125/74; PULSE 82; RESP 17; TEMP 36.6; O2SAT 95
[2021-04-01] VITALS: BP 138/76; PULSE 86; RESP 16; TEMP 37.4; O2SAT 91
[2021-04-01] MEDS: enoxaparin 40 mg/0.4 mL Syringe SUBCUT (02:44)
[2021-04-01] MEDS: HYDROcodone-acetaminophen 5-325 mg Tablet 1 TAB PO ×4 (02:56→20:57)
[2021-04-01 04:00] VITALS: BP 134/70; PULSE 92; RESP 18; TEMP 37.5; O2SAT 93
[2021-04-01 07:10] LABS: Basophils # 0.1 10^3/uL (0.0-0.1); Basophils % 0.4 %; Eosinophils # 0.5 10^3/uL (0.0-0.8); Eosinophils % 2.9 %; Hematocrit 34.8 % (42.0-52.0); Lymphocytes # 1.7 10^3/uL (0.8-4.8); Lymphocytes % 10.6 %; Mean Corpuscular HGB Conc 31.6 g/dL (30.0-36.0); Mean Corpuscular Hemoglobin 28.4 pg (28.0-34.0); Mean Corpuscular Volume 89.7 fL (80-94); Mean Platelet Volume 9.4 fL (7.4-10.4); Monocytes # 1.5 10^3/uL (0.2-0.9); Monocytes % 9.3 %; Neutrophils # 12.21 10^3/uL (1.8-7.7); Neutrophils % 75.8 %; Nucleated Red Blood Cells % 0 %; Platelet Count 434 10^3/cmm (130-400); Red Blood Count 3.88 10^6/uL (4.1-5.3); Red Cell Distribution Width 14.4 % (12.1-15.1); White Blood Count 16.1 10^3/uL (4.0-10.0)
[2021-04-01 07:30] LABS: Potassium 3.6 mmol/L (3.5-5.1)
[2021-04-01 07:38] VITALS: BP 138/72; PULSE 85; RESP 18; TEMP 36.4; O2SAT 95
--- NOTE | 2021-04-01 07:55 | PM.PN ---
Subjective Subjective: Interval history: Urology follow-up: Continues to improve overall. Feels his strength is increasing. No high fever or chills. No recurrent gross hematuria. IV has been discontinued which is freed him up quite a bit which he is happy about. Some small amount of ambulation yesterday. WBC: Continues to decrease 16.1 today. Reviewed the followin. Convert to leg bag during the day for ambulation facilitation 2. Leg and night bag training for discharge 3. Physical therapy consult for assistance in ambulation activity and assessment. 4. Voiding trial here if he does extend his visit through the middle of next week. If not then discharged with Hdez catheter in place Medications: Reviewed: Yes Vitals/I&O/Wt Last Vital Signs Temp 97.6 F 04/01/21 07:38 Pulse 85 04/01/21 07:38 Resp 18 04/01/21 07:38 BP 138/72 04/01/21 07:38 Pulse Ox 95 04/01/21 07:38 03/31/21 04/01/21 04/01/21 22:59 06:59 14:59 Intake Total 460 / 3051.667 100 / 100 Output Total 700 / 700 700 / 1400 Balance -240 / 2351.667 -700 / 1651.667 100 / 100 Physical Exam Const: COMMON NORMALS: no acute distress, alert and well nourished GENERAL APPEARANCE: well kempt and well developed ORIENTATION/CONSCIOUSNESS: not confused Resp: COMMON NORMALS: normal respiratory effort EFFORT & INSPECTION: No labored and No Actively coughing Neuro: SENSORIUM/ORIENTATION: Yes alert Psych: COMMON NORMALS: mental status grossly normal APPEARANCE: Yes grossly normal and Yes well kempt ATTITUDE: Yes calm and Yes engaged Skin: COMMON NORMALS: no rashes or lesions noted and no jaundice GENERAL SKIN EXAM: no rashes or lesions noted Urinary Catheter Management^: Hdez: Cath Placed During This Visit: yes Reason for Continuing Indwelling Catheter: Other Urinary Catheter Date of Insertion: 03/26/21 Urinary Catheter Time of Insertion: 23:00 Data : 04/01/21 06:54 04/01/21 06:54 Micro: Microbiology 03/26/21 20:45 Blood Culture - Final Blood NO GROWTH AFTER 5 DAYS 03/26/21 20:45 Blood Culture - Final Blood NO GROWTH AFTER 5 DAYS Attestations Medical Necessity Statement*: See attending Coding Level of Care Code Acute Melter Supervisor Oxygen Furnace for Tamir Leggett
--- NOTE | 2021-04-01 08:07 | P.PN_ITS ---
Subjective Subjective: Interval history: Overall patient feels better and continues to pass gas and had a small bowel movement. Tolerating p.o. intake in the form of full liquid diet. Medications: Reviewed: Yes Vitals/I&O/Wt Last Vital Signs Temp 97.6 F 04/01/21 07:38 Pulse 85 04/01/21 07:38 Resp 18 04/01/21 07:38 BP 138/72 04/01/21 07:38 Pulse Ox 95 04/01/21 07:38 03/31/21 04/01/21 04/01/21 22:59 06:59 14:59 Intake Total 460 / 3051.667 100 / 100 Output Total 700 / 700 700 / 1400 Balance -240 / 2351.667 -700 / 1651.667 100 / 100 Physical Exam Narrative: EXAM NARRATIVE: Patient is conscious alert oriented X3 BMI 24.3 Head and neck examination PERRLA no masses no cervical lymphadenopathy no jaundice Abdomen nontender mildly distended, otherwise soft no organomegaly guarding or rigidity/no signs of peritonitis Hdez catheter in place with clear urine Urinary Catheter Management^: Hdez: Cath Placed During This Visit: yes Reason for Continuing Indwelling Catheter: Other Urinary Catheter Date of Insertion: 03/26/21 Urinary Catheter Time of Insertion: 23:00 Data : 04/01/21 06:54 04/01/21 06:54 Micro: Microbiology 03/26/21 20:45 Blood Culture - Final Blood NO GROWTH AFTER 5 DAYS 03/26/21 20:45 Blood Culture - Final Blood NO GROWTH AFTER 5 DAYS A&P Assessment and plan (1) Ileus: Ileus resolving and patient can be advanced to soft GI diet, I did educate the patient to go slowly on p.o. intake and certainly will benefit from protein shakes 3 to 4 cans a day to boost his nutrition. Assurance and education All questions have been answered and all concerns have been addressed to patient's satisfaction. Status: Acute Attestations Medical Necessity Statement*: Ongoing inpatient hospitalization passing 2 mi dnights for resolving sepsis, pneumonia and ileus. Time Spent in Patient Care: (>than 50% of time spent in counselling and/or direct pt care on unit) . Coding Level of Care Code Acute Material Reclaimer for [facility] Diagnoses Ileus K56.7
[2021-04-01] MEDS: finasteride 5 mg Tablet PO (08:09)
[2021-04-01] MEDS: piperacillin-tazobactam 3.375 GM in sodium chloride 0.9% (plus) 100 ML IV ×3 (08:09→23:16)
[2021-04-01] MEDS: fluconazole 100 mg Tablet PO (08:10)
[2021-04-01] MEDS: tamsulosin 0.4 mg Capsule PO ×2 (08:10→17:56)
[2021-04-01] MEDS: pantoprazole DR 40 mg Tablet PO (08:10)
[2021-04-01] MEDS: amlodipine 5 mg Tablet PO ×2 (08:10→17:56)
--- NOTE | 2021-04-01 08:17 | PC.NURSE ---
Patient sitting up in chair, rates pain at 5/10 to lower back chronic pain, requests pain pill at next available time, family in room, denies further needs, call light in reach, leg bag to be changed after breakfast for ambulation per doctor.
--- NOTE | 2021-04-01 10:16 | PC.SOCIAL ---
IMM IMM updated with patient and family at bedside. Verbalized an understanding. Initialled, dated, timed, and placed in chart.
--- NOTE | 2021-04-01 10:26 | PC.CHAP ---
Pastoral Care Encounter/Spiritual Assessment Type of Contact [] Declined health records technology teacher visit [] Patient/Family/Request visit [] Outpatient visit [] Follow-up visit [] Physician referral [] Code/Alert [x] Routine visit [] Staff referral [] Actively dying [] Patient sleeping [] Family support [] [] Out of room [] Palliative care [] [] Receiving care in room [] Pre-surgical visit [] Trauma [] Long length of stay [] ICU visit [] Other: Relational/Emotional Strength [x] Patient feels connected with others/family/visitors/staff [] Distress [] Loneliness/isolation [] Abandonment Spirituality of Patient [x] Person of Uma [x] Attends Denominational of their Uma [x] Believes in Prayer [] Reads Bible or Taoism materials [] There are Spiritual issues to be addressed Coal Trimmer Machine Operator Interventions [x] Prayer [x] Active listening [x] Non-anxious presence [x] Spiritual/emotional support [] Crisis/trauma care [] Spiritual counseling [] Bereavement support [] Provided bereavement packet [] Provided Bible/devotional materials [] Provided toy/stuffed animal, coloring book to patient or family member [] Provided Communion [] Anointing/[place] [] Salvation [x] Completed spiritual assessment [] Other: Impact on Illness or Injury [] Angry [] Fearful [] Anxious [] Often cries [] Exhaustion [] Unable to work [] Unable to attend presybeterian [] Unable to walk/stand [] Unable to read [] Unable to drive [] Unable to eat/drink [] Unable to sleep [] Unable to be with family [] Patient intubated [] Other: Summary Coal Trimmer Machine Operator prayed with Patient. Time spent with patient 7 minutes.
[2021-04-01 11:22] VITALS: BP 141/72; PULSE 88; RESP 18; TEMP 36.7; O2SAT 97
--- NOTE | 2021-04-01 15:41 | PM.PN ---
Subjective Subjective: Interval history: Patient tolerated solid diet today, he has been passing flatus, endorsing feeling better abdominal bloating has improved, he feels like he will have a bowel movement today, waiting for physical therapy Vitals/I&O/Wt Last Vital Signs Temp 98.1 F 04/01/21 11:22 Pulse 88 04/01/21 11:22 Resp 18 04/01/21 11:22 BP 141/72 04/01/21 11:22 Pulse Ox 97 04/01/21 11:22 04/01/21 04/01/21 04/01/21 06:59 14:59 22:59 Intake Total 840 / 840 Output Total 700 / 1400 250 / 250 100 / 350 Balance -700 / 1651.667 590 / 590 -100 / 490 Physical Exam Narrative: EXAM NARRATIVE: He was sitting in his chair when entered the room, Zosyn at the bedside Pleasant and cooperative S1-S2 no signs of heart failure dehydration Abdomen less bloated bowel sound present hyperactive Lower extremity no edema EOMI, PERRLA No neurological deficit No acute respiratory distress Hdez catheter draining concentrated urine bag attached to his thigh No joint swelling or cellulitis Urinary Catheter Management^: Hdez: Cath Placed During This Visit: yes Reason for Continuing Indwelling Catheter: Other Urinary Catheter Date of Insertion: 03/26/21 Urinary Catheter Time of Insertion: 23:00 Data : 04/01/21 06:54 04/01/21 06:54 Micro: Microbiology 03/26/21 20:45 Blood Culture - Final Blood NO GROWTH AFTER 5 DAYS 03/26/21 20:45 Blood Culture - Final Blood NO GROWTH AFTER 5 DAYS A&P Assessment and plan (1) Ileus: Status: Acute (2) Severe sepsis: Status: Acute (3) Diverticulitis: Status: Acute (4) Recurrent UTI: Status: Acute (5) ELKIN (acute kidney injury): Status: Acute Additional A&P Information Severe sepsis: Resolved Pseudomonas with no sensitivity to p.o. antibiotics, considering urosepsis I would give him 14-day regimen of IV Zosyn will request PICC line placement tomorrow And have him follow-up with his PCP, no need to follow-up with ID clinic for now as this regimen is less than 4 weeks For Gerri he will finish 14 days of antifungal Ileus: Patient tolerating diet, today he tolerated solid food, endorsing passing flatus, 1 bowel movement a day General surgery recommendations appreciated, protein shakes 3 to 4 cans a day Urine retention with history of BPH Dr. Okeefe will see him in a week Outpatient voiding trial Full code Lovenox DVT prophylaxis Cardiac diet Attestations Medical Necessity Statement*: Anticipating discharge tomorrow Time Spent in Patient Care: 30mins Coding Level of Care Code Acute Computer Artist for Chg Fwd Diagnoses Ileus K56.7 Severe sepsis A41.9; R65.20 Diverticulitis K57.92 Recurrent UTI N39.0 ELKIN (acute kidney injury) N17.9
[2021-04-01 16:00] VITALS: BP 129/67; PULSE 84; RESP 18; TEMP 36.7; O2SAT 96
--- NOTE | 2021-04-01 18:38 | PC.NURSE ---
Patient and family were instructed about joy catheter management and switching catheter bags from leg bag to urimeter bag, patient verbalized, Case management told me about going home with picc line and antibiotics and I do not feel comfortable with all these tubes at home. Patient encouraged to speak to physician and case management tomorrow about further options and continue to work with catheter emptying while in the hospital where assistance and teaching can be provided, verbalized understanding.
[2021-04-01 20:00] VITALS: BP 152/75; PULSE 92; RESP 18; TEMP 37.2; O2SAT 96
[2021-04-01] MEDS: acetaminophen 325 mg Tablet 650 MG PO (23:34)
[2021-04-02] VITALS: BP 150/80; PULSE 90; RESP 17; TEMP 37.4; O2SAT 94
[2021-04-02] MEDS: enoxaparin 40 mg/0.4 mL Syringe SUBCUT (01:35)
[2021-04-02] MEDS: HYDROcodone-acetaminophen 5-325 mg Tablet 1 TAB PO ×4 (03:37→21:39)
[2021-04-02 04:00] VITALS: BP 147/84; PULSE 91; RESP 17; TEMP 37.1; O2SAT 93
--- NOTE | 2021-04-02 04:56 | PC.NURSE ---
shift note patient rested in bed, had episode of feeling room too cold and later room feeling too hot, each time temps were WNL, early in the shift payient verbalized wanting to make sure he gets his pain meds every 6 hours due to pain returns after about 3-4 hours, nurse educated patient about utilizing tylenol in between for breakthrough pain and better pain management, patient agreed. pain centralized to back, patient attributing pain as mainly due to old back injury turned arthritis. leg bag was changed to longer cath tubing and bag for patient comfort, patient informed that in the morning and while up and about leg bag is best to accommodate patient's independence. patient agreed
[2021-04-02 06:46] LABS: Basophils # 0.1 10^3/uL (0.0-0.1); Basophils % 0.6 %; Eosinophils # 0.4 10^3/uL (0.0-0.8); Eosinophils % 3.2 %; Hematocrit 34.3 % (42.0-52.0); Hemoglobin 10.6 g/dL (11.7-16.6); Lymphocytes # 1.6 10^3/uL (0.8-4.8); Lymphocytes % 11.4 %; Mean Corpuscular HGB Conc 30.9 g/dL (30.0-36.0); Mean Corpuscular Hemoglobin 28.8 pg (28.0-34.0); Mean Corpuscular Volume 93.2 fL (80-94); Mean Platelet Volume 9.3 fL (7.4-10.4); Monocytes # 1.1 10^3/uL (0.2-0.9); Monocytes % 8.4 %; Neutrophils # 10.31 10^3/uL (1.8-7.7); Neutrophils % 75.6 %; Nucleated Red Blood Cells % 0 %; Platelet Count 399 10^3/cmm (130-400); Red Blood Count 3.68 10^6/uL (4.1-5.3); Red Cell Distribution Width 14.3 % (12.1-15.1); White Blood Count 13.6 10^3/uL (4.0-10.0)
[2021-04-02] MEDS: acetaminophen 325 mg Tablet 650 MG PO ×2 (06:49→18:18)
[2021-04-02 07:29] VITALS: BP 147/75; PULSE 82; RESP 16; TEMP 36.6; O2SAT 95
[2021-04-02 07:50] LABS: Slide Review Slide Review Perform
[2021-04-02] MEDS: pantoprazole DR 40 mg Tablet PO (08:43)
[2021-04-02] MEDS: amlodipine 5 mg Tablet PO ×2 (08:43→18:18)
[2021-04-02] MEDS: tamsulosin 0.4 mg Capsule PO ×2 (08:43→18:18)
[2021-04-02] MEDS: fluconazole 100 mg Tablet PO (08:43)
[2021-04-02] MEDS: finasteride 5 mg Tablet PO (08:43)
[2021-04-02] MEDS: piperacillin-tazobactam 3.375 GM in sodium chloride 0.9% (plus) 100 ML IV ×3 (08:43→23:12)
[2021-04-02 11:33] VITALS: BP 132/75; PULSE 76; RESP 17; TEMP 36.3; O2SAT 93
[2021-04-02 15:21] VITALS: BP 137/75; PULSE 83; RESP 16; TEMP 37.3; O2SAT 93
--- NOTE | 2021-04-02 15:26 | PM.PN ---
Subjective Subjective: Interval history: Patient was seen and examined this morning, had 1 bowel movement yesterday, passing flatus, abdominal distention improved, he is able to tolerate solid food, awaiting PICC line placement and arrangement of home health services via [place] Vitals/I&O/Wt Last Vital Signs Temp 99.1 F 04/02/21 15:21 Pulse 83 04/02/21 15:21 Resp 16 04/02/21 15:21 BP 137/75 04/02/21 15:21 Pulse Ox 93 04/02/21 15:21 04/02/21 04/02/21 04/02/21 06:59 14:59 22:59 Intake Total 100 / 1160 460 / 460 Output Total 800 / 1450 Balance -700 / -290 460 / 460 Physical Exam Narrative: EXAM NARRATIVE: Was laying supine in his bed without any active discomfort watching television, S1, S2 no signs of heart failure or murmur Abdomen distention improved, soft abdomen no signs of peritonitis No signs of peritonitis Low symmetry mild 1+ pitting edema bilaterally Awake alert oriented x3 GCS 15 EOMI, PERRLA No sign of cellulitis No joint swelling Appropriate mood and affect Hdez catheter placement 03/26 Urinary Catheter Management^: Hdez: Cath Placed During This Visit: yes Reason for Continuing Indwelling Catheter: Acute Urinary Retention or Obstruction Urinary Catheter Date of Insertion: 03/26/21 Urinary Catheter Time of Insertion: 23:00 Data : 04/02/21 06:31 04/01/21 06:54 A&P Assessment and plan (1) Ileus: Status: Acute (2) BPH (benign prostatic hyperplasia): Status: Acute (3) Neutrophilic leukocytosis: Status: Acute (4) Severe sepsis: Status: Acute (5) Lung cancer: Status: Acute (6) ELKIN (acute kidney injury): Status: Acute (7) Diverticulitis: Status: Acute (8) Recurrent UTI: Status: Acute Additional A&P Information Ileus secondary to Pseudomonas UTI Severe sepsis resolved Has stayed afebrile, Ileus resolved as well, he is able to tolerate solid food had 1 bowel movement today as well Abdomen soft with improvement in distention Awaiting PICC line placement, he will follow up with the [place], he will need total 14 days of IV antibiotics for Pseudomonas related UTI with indwelling catheter, for Gerri albicans continue Diflucan for 14 days Diverticulitis: No acute complications, continue Zosyn ELKIN: Resolved BPH with urine retention follow-up with Dr. Okeefe next week Full code DVT prophylaxis on hold in anticipation of PICC line placement, Regular diet Attestations Medical Necessity Statement*: Anticipating discharge in next 24 hours, we are setting up home health services for PICC line antibiotic follow-up, PICC line placement today Time Spent in Patient Care: 30minns Coding Level of Care Code Acute Clinical Application Manager for Chg Fwd Diagnoses Ileus K56.7 BPH (benign prostatic hyperplasia) N40.0 Neutrophilic leukocytosis D72.9 Severe sepsis A41.9; R65.20 Lung cancer C34.90 ELKIN (acute kidney injury) N17.9 Diverticulitis K57.92 Recurrent UTI N39.0
[2021-04-02 19:55] VITALS: BP 131/73; PULSE 88; RESP 17; TEMP 36.6; O2SAT 96
[2021-04-03] VITALS: BP 137/79; PULSE 86; RESP 17; TEMP 36.8; O2SAT 94
[2021-04-03] MEDS: acetaminophen 325 mg Tablet 650 MG PO ×3 (01:28→17:15)
[2021-04-03 04:00] VITALS: BP 139/78; PULSE 84; RESP 17; TEMP 36.9; O2SAT 93
--- NOTE | 2021-04-03 04:42 | PC.NURSE ---
shift note patient rested in bed with eyes closed, no issues this shift,
[2021-04-03] MEDS: HYDROcodone-acetaminophen 5-325 mg Tablet 1 TAB PO ×2 (05:07→14:22)
[2021-04-03 06:54] LABS: Basophils # 0.1 10^3/uL (0.0-0.1); Basophils % 0.5 %; Eosinophils # 0.5 10^3/uL (0.0-0.8); Eosinophils % 3.4 %; Hematocrit 34.1 % (42.0-52.0); Lymphocytes # 1.4 10^3/uL (0.8-4.8); Lymphocytes % 10.1 %; Mean Corpuscular HGB Conc 32.3 g/dL (30.0-36.0); Mean Corpuscular Hemoglobin 28.4 pg (28.0-34.0); Mean Corpuscular Volume 87.9 fL (80-94); Mean Platelet Volume 9.2 fL (7.4-10.4); Monocytes % 7.3 %; Neutrophils # 10.49 10^3/uL (1.8-7.7); Neutrophils % 77.8 %; Nucleated Red Blood Cells % 0 %; Platelet Count 474 10^3/cmm (130-400); Red Blood Count 3.88 10^6/uL (4.1-5.3); Red Cell Distribution Width 14.2 % (12.1-15.1); White Blood Count 13.5 10^3/uL (4.0-10.0)
[2021-04-03] MEDS: piperacillin-tazobactam 3.375 GM in sodium chloride 0.9% (plus) 100 ML IV ×2 (07:15→14:22)
[2021-04-03 08:09] VITALS: BP 160/78; PULSE 85; RESP 16; TEMP 36.6; O2SAT 95
[2021-04-03] MEDS: fluconazole 100 mg Tablet PO (09:05)
[2021-04-03] MEDS: tamsulosin 0.4 mg Capsule PO ×2 (09:05→17:15)
[2021-04-03] MEDS: amlodipine 5 mg Tablet PO ×2 (09:05→17:15)
[2021-04-03] MEDS: pantoprazole DR 40 mg Tablet PO (09:05)
[2021-04-03] MEDS: finasteride 5 mg Tablet PO (09:05)
[2021-04-03 11:23] VITALS: BP 158/76; PULSE 79; RESP 16; TEMP 36.6; O2SAT 96
--- NOTE | 2021-04-03 11:53 | PC.SOCIAL ---
IMM Update Updated pt of medicare rights. Verbalized understanding. Gave copy to pt and place initialed, timed, dated copy in chart.
--- NOTE | 2021-04-03 14:29 | P.DS_ITS ---
Discharge Providers Date of Admission: 03/27/21 01:37 Date of Discharge: April 03, 2021 Attending Provider at Admission: Celeste Coppola MD Attending Provider at Discharge: Jose Gibbs MD Diagnoses at Discharge Discharge Diagnosis (1) Ileus: Status: Acute (2) BPH (benign prostatic hyperplasia): Status: Acute Permanent problem details: s/p fulguration on 03/23/2021, due to bleeding from the median lobe (3) Neutrophilic leukocytosis: Status: Acute (4) Severe sepsis: Status: Acute (5) Lung cancer: Status: Acute (6) ELKIN (acute kidney injury): Status: Acute (7) Diverticulitis: Status: Acute (8) Recurrent UTI: Status: Acute Reason for Visit Reason for Visit: abd pain Hospital Course Hospital Course HPI Jeremy Nichols is a 76 year old male with PMH as outlined below hwo underwent Extracorporeal shockwave lithotripsy to large bladder stone, Cystoscopy with stone fragment evacuation and Fulguration of bleeding prostate on 03/23/21. Discharged post operatively. States he developed generalized abdominal pain that continued to get worse over course of weekend. Addtionally develeoped nausea, vomiting and poor urine output which chad him to the ER. He states feeling better after receiving dilaudid and having a Hdez placed, which drained ~1L of urine. This is clear. No fever, chills. Passing flatus, last BM in the ER after being given suppositories. Labs notable for leukocytosis of 44, unknown past baseline, cr 1.4 (baseline N/A). He has been on Ciprofloxcin 500mg BID since discharge. Has received COVID vaccination x2 Hospital course Patient presented to ED on 03/26 with complaints of left-sided back pain that was radiating to abdomen and became more generalized it was associated with poor p.o. intake. He was diagnosed with severe sepsis secondary to Pseudomonas UTI and Gerri albicans, he also developed ileus secondary to sepsis which resolved with conservative management and NG suction, he tolerated solid food subsequently, his hematuria improved, urology was consulted because of urine retention, he failed voiding trial and Dr. Okeefe recommended follow-up outpatient for another voiding trial. General surgery was also following for his ileus. He will go home with home health services for IV Zosyn via PICC line to finish 14 days because of Pseudomonas related to UTI and sepsis(completed 7 days during hospitalization), blood cultures were sterile. Decision of finishing 14 days on antibiotics was made because of severe sepsis, he presented with leukocytosis of 49,000 which improved to 13,000 at the time of discharge. Peripheral smear shows leukocytosis with neutrophil predominance without any blast cells. Pseudomonas is resistant to p.o. antimicrobial options, hence he will need IV Zosyn every 8 hours 3.375 gm for next 7 days Arranged home health services and [facility], no need to draw blood levels, CBC showed marked improvement in leukocytosis. Physical Exam Narrative: EXAM NARRATIVE: Was sitting in his chair eating lunch S1, S2 no signs of heart failure or murmur Abdomen distention improved, soft abdomen no signs of peritonitis No signs of peritonitis Low symmetry mild 1+ pitting edema bilaterally Awake alert oriented x3 GCS 15 EOMI, PERRLA No sign of cellulitis No joint swelling Appropriate mood and affect Hdez catheter placement 03/26 Urinary Catheter Management^: Hdez: Cath Placed During This Visit: yes Reason for Continuing Indwelling Catheter: Other Urinary Catheter Date of Insertion: 03/26/21 Urinary Catheter Time of Insertion: 23:00 Discharge Data Data Completed and Pending: Completed Studies During Hospitalization Category Date Time Status CT abdomen pelvis w con* [id number] Urge nt Cat Scan 03/26/21 20:[address] chest wo con 7 [id number] Routine Cat Scan 03/28/21 Completed XR acute abdomen series [id number] Routi ne Exams 03/30/21 10:29 Completed Pending at discharge Category Date Time Status Miscellaneous Tasha t Routine Lab 03/26/21 20:33 Received Labs from last 24 hours 04/03/21 06:35 WBC 13.5 H RBC 3.88 L Hgb 11.0 L Hct 34.1 L MCV 87.9 MCH 28.4 MCHC 32.3 RDW 14.2 Plt Count 474 H MPV 9.2 Neut % (Auto) 77.8 Lymph % (Auto) 10.1 [place] % (Auto) 7.3 Eos % (Auto) 3.4 Baso % (Auto) 0.5 Neut # (Auto) 10.49 H Lymph # (Auto) 1.4 [place] # (Auto) 1.0 H Eos # (Auto) 0.5 Baso # (Auto) 0.1 Nucleated RBC % (a uto) 0 Nucleated RBCs # 0.0 Vitals: Last Vital Signs Temp 97.8 F 04/03/21 11:23 Pulse 79 04/03/21 11:23 Resp 16 04/03/21 11:23 BP 158/76 04/03/21 11:23 Pulse Ox 96 04/03/21 11:23 Discharge Plan Discharge Patient Disposition: Home Condition: Stable Prescriptions: New Zosyn in dextrose (iso-osm) 3.375 gram/50 mL piggyback 3.375 g IV Q8H 7 Days Qty: 1181.25 RF: 0 fluconazole 100 mg Tablet 100 mg PO DAILY 7 Days Qty: 7 RF: 0 Continued Ultra CoQ10 75 mg capsule 75 mg PO DAILY RF: 0 amlodipine 5 mg tablet 5 mg PO BID RF: 0 atorvastatin 40 mg tablet 20 mg PO DAILY RF: 0 celecoxib 200 mg capsule 200 mg PO BID RF: 0 Hold Instructions: Resume on 03/26/21. Until decreased blood in urine finasteride 5 mg tablet 5 mg PO DAILY RF: 0 hydrocodone-acetaminophen 5-325 mg tablet 1 tab PO Q6H PRN (Reason: Renal colic) 3 Days Qty: 12 RF: 0 Lakeisha-C 500 mg Tablet 500 mg PO DAILY RF: 0 Dulcolax (bisacodyl) 10 mg Suppository 10 mg TN DAILY PRN (Reason: Constipation) RF: 0 Dulcolax (bisacodyl) 5 mg Tablet,Delayed Release (Dr/Ec) 5 mg PO DAILY PRN (Reason: Constipation) RF: 0 tamsulosin 0.4 mg capsule 0.4 mg PO BIDWM Qty: 60 RF: 12 Discontinued ciprofloxacin HCl 500 mg tablet 500 mg PO BID Qty: 20 RF: 0 doxycycline hyclate 100 mg tablet 100 mg PO BID RF: 0 Discharge Orders: Discharge Order (Routine); Ordered 04/03/21 Ordered By: Jose Gibbs Referrals: [facility]) [Outside] ([facility] has accepted you for services. They will be assisting in your antibiotic administration. If you have any question or concerns please call them at [phone].) Johnson Matta DO [Physician] - Jim Okeefe MD [Physician] - 04/06/21 9:00 am (voiding trial, scic training) Discharge Diet: Cardiac Discharge Activity: Increase activity as tolerated Patient Instructions: Opioid Safety Activity Restrictions/Additional Instructions: You develop sepsis with bacteria and yeast infection in your bladder, it was not present in your blood For blood infection normally patients require 4 weeks of antibiotics you only get 2 weeks because you are going home with a Hdez catheter Your white count on day of discharge is 13.5 which has improved significantly on day of admission it was 44.9 You will be given 7 days of fluconazole antifungal and antibiotic Zosyn You will get antibiotics via PICC line PICC line should be removed after a week and follow-up with your PCP Dr. Orantes Your Hdez catheter will be removed by Dr. Okeefe Discharge Attestations Time Spent in Discharge Care*: less than 30 min Quality Metrics Clinical Quality Measures During this hospital stay, did patient experience: None Coding Level of Care Code Acute Chg FW DC note Diagnoses Ileus K56.7 BPH (benign prostatic hyperplasia) N40.0 Neutrophilic leukocytosis D72.9 Severe sepsis A41.9; R65.20 Lung cancer C34.90 ELKIN (acute kidney injury) N17.9 Diverticulitis K57.92 Recurrent UTI N39.0
[2021-04-03 15:58] VITALS: BP 129/74; PULSE 82; RESP 16; TEMP 36.8; O2SAT 94
--- NOTE | 2021-04-03 18:42 | PC.NURSE ---
PT HAS DONE WELL FOR ME TODAY. PT HAS HAD MINIMAL COMPLAINTS OF PAIN. PAIN HAS BEEN TOLERATED WELL WITH TYLENOL. PT WILL DISCHARGE TODAY AFTER PICC LINE. PICC LINE PLACED THIS AFTERNOON. EVENING DOSE OF ABX GIVEN. PICC LINE INSTRUCTIONS GONE OVER WITH PT. DISCHARGE PAPERWORK GONE OVER WITH PT. ALL QUESTIONS ANSWERED. IV IN AC REMOVED. PT TOLERATED WELL. CATHETER TIP INTACT. PT WHEELED OUT BY THIS NURSE. SAFELY DISCHARGED AT 1648.
[2021-04-03 19:21] VITALS: BP 129/74; PULSE 82; RESP 16; TEMP 36.8; O2SAT 94
== END 2021-04-03 18:15 | disposition home health service (06) | DRG 871 ==
LOC: ER 23:28 → CSU 23:55 → MEDSURG 03-28 22:07
PROVIDERS: Internal Medicine; Admitting Provider Student in an Organized Health Care Education/Training Program; Emergency Provider Family Medicine; Visit Provider Internal Medicine
DX: A41.9 Sepsis, unspecified organism (principal); J18.9 Pneumonia, unspecified organism; N17.9 Acute kidney failure, unspecified; N13.8 Other obstructive and reflux uropathy; N30.01 Acute cystitis with hematuria; K57.32 Diverticulitis of large intestine without perforation or abscess without bleeding; R18.8 Other ascites; E87.2 Acidosis; N13.30 Unspecified hydronephrosis; B37.49 Other urogenital candidiasis; K56.7 Ileus, unspecified; K56.609 Unspecified intestinal obstruction, unspecified as to partial versus complete obstruction; E87.1 Hypo-osmolality and hyponatremia; R65.20 Severe sepsis without septic shock; Z87.440 Personal history of urinary (tract) infections; Z87.891 Personal history of nicotine dependence; N40.1 Benign prostatic hyperplasia with lower urinary tract symptoms; R33.8 Other retention of urine; Z85.118 Personal history of other malignant neoplasm of bronchus and lung; Z92.3 Personal history of irradiation; Z87.442 Personal history of urinary calculi; Z79.891 Long term (current) use of opiate analgesic; B96.5 Pseudomonas (aeruginosa) (mallei) (pseudomallei) as the cause of diseases classified elsewhere; K59.00 Constipation, unspecified
CPT/HCPCS: 36415; 36569; 51702; 51798; 71250; 74022; 74177; 80053; 80500; 81001; 81003; 83605; 83690; 83735; 83880; 84100; 84132; 84484; 85025; 86140; 87040; 87077; 87086; 87106; 87186; 87426; 87635; 93005; 96365; 96372; 96375; 96376; 97161; 99285; C1751; J0456; J0637; J1170; J1650; J2405; J2543; J2550; J3370; J7030; J7050; Q9967

== ENCOUNTER → 2021-04-19 09:32 | Outpatient (BNVA) | payer OTHER, SELFPAY | PROVIDERS: Visit Provider Urology | DX: R33.8 Other retention of urine (principal); N40.1 Benign prostatic hyperplasia with lower urinary tract symptoms | CPT/HCPCS: 81003 ==

== ENCOUNTER → 2021-05-22 09:18 | Outpatient (BNVA) | payer OTHER, SELFPAY | PROVIDERS: PCP Family Medicine; Visit Provider Urology | DX: N40.1 Benign prostatic hyperplasia with lower urinary tract symptoms (principal); R33.8 Other retention of urine; N39.0 Urinary tract infection, site not specified | CPT/HCPCS: 81003; 87077; 87086; 87184 ==

== ENCOUNTER 2022-04-12 07:49 | Emergency (ER) | payer OTHER, SELFPAY ==
--- NOTE | 2022-04-12 08:00 | PC.NURSE ---
Patient presents with joy catheter placed from outside facility on 04/11/22.
--- NOTE | 2022-04-12 08:08 | W.ED.MALEGU ---
HPI - Male Genitourinary General: Chief complaint: Urogenital-Male Stated complaint: Cathiter is issues Time Seen by Provider: 04/12/22 08:08 History of Present Illness: Mr. Nichols is a 77-year-old gentleman with complex past medical history including recurrent urinary tract infections and history of intermittent self cath though nothing recently who presents to the emergency department due to postoperative concern. He reports undergoing bladder stone removal yesterday at [facility]. He expected to stay overnight however was discharged with a Hdez catheter in place which he has not had. He reports having urgency and occasional leakage around the catheter as well as difficulty draining the tubing with concern over it being blocked. Denies signs of systemic illness. Did notice blood in urine earlier and had to break up clots to improve drainage. Intensity symptoms when present is moderate and episodic in nature. No other specific changes in health, exacerbating, or alleviating factors identified. Onset (ago): hour(s) Severity: moderate Context: recent surgery Associated symptoms: Reports other Review of Systems General: Reports: 10 or more systems reviewed and unremarkable except in HPI and below PFSH ED PFSH: Medical History BPH (benign prostatic hyperplasia) s/p fulguration on 03/23/2021, due to bleeding from the median lobe Calculus in bladder Lung cancer Recurrent UTI Surgical History H/O lithotripsy Done on 03/23/2021 to a bladder stone History of lung biopsy Family History Mother , AT 60 Heart disease Father , AT 64 Diabetes Social History Alcohol intake: never Marital status: / Current occupational status: retired History of recent travel: No Physical Exam Const: COMMON NORMALS: alert GENERAL APPEARANCE: cooperative and well developed HENMT: COMMON NORMALS: normocephalic and atraumatic HEAD & SCALP: normocephalic and atraumatic Eye: COMMON NORMALS: conjunctivae normal CONJUNCTIVA: Yes conjunctivae normal SCLERA: sclerae normal Neck/C-Spine: COMMON NORMALS: supple GENERAL: Yes trachea midline Resp: COMMON NORMALS: normal respiratory effort EFFORT & INSPECTION: Yes able to speak in complete sentences Cardio: COMMON NORMALS: regular rate and regular rhythm RATE: regular rate RHYTHM: regular rhythm GI: COMMON NORMALS: Soft to palpation PALPATION: Yes Soft to palpation and No Tenderness to palpation present (GI) PERCUSSION: normal to percussion : OTHER: Catheter tubing with dark yellow urine, areas with what appeared to be fine clots, overall urine collection bag with evidence of hematuria Extremity: GENERAL: Yes normal exam except as noted and No edema Neuro: COMMON NORMALS: moves all extremities SENSORIUM/ORIENTATION: Yes alert and No Orientation impaired Psych: COMMON NORMALS: mental status grossly normal and Normal thought process present THOUGHT PROCESS: Normal thought process present Course Vital Signs: Vital signs: Vital Signs Temperature 97.7 F 04/12/22 08:59 Pulse Rate 80 04/12/22 10:43 Respiratory Rate 18 04/12/22 10:43 Blood Pressure 149/84 04/12/22 10:43 Pulse Oximetry 95 04/12/22 10:43 Oxygen Delivery Me thod 04/12/22 10:43 MDM - Male Medical Decision Making 77-year-old gentleman presenting with concern over obstructed urinary catheter. Benign abdominal exam and no reported signs of systemic illness. On exam there is flow noted but urine does have red coloration. No evidence of creatinine elevation on BMP. Patient currently on antibiotics. Flushed catheter with clear return of urine. Satisfactory for outpatient management with strict return precautions and follow-up plan given. Medical Records I reviewed the patient's medical records. Lab Data I reviewed the patient's lab results. : 04/12/22 08:59 Radiology Impressions Renal Ultrasound 04/12/22 08:32 IMPRESSION: 1. No hydronephrosis. 2. Hdez catheter is in a nondistended bladder. There is debris which is probably clotted blood surrounding Hdez catheter balloon. Laboratory Results Sodium 140 mmol/L (136-145) 04/12/22 08:59 Potassium 4.0 mmol/L (3.5-5.1) 04/12/22 08:59 Chloride 103 mmol/L (98-107) 04/12/22 08:59 Carbon Dioxide 26 mmol/L (22-29) 04/12/22 08:59 Anion Gap 15.0 (5-19) 04/12/22 08:59 BUN 14 mg/dL (8-23) 04/12/22 08:59 Creatinine 0.7 mg/dL (0.7-1.2) 04/12/22 08:59 GFR Calculation Not Reportable 04/12/22 08:59 Glucose 116 mg/dL (65-115) H 04/12/22 08:59 Calculated Osmolality 291 mOsm/kg (285-295) 04/12/22 08:59 Calcium 9.2 mg/dL (8.5-10.5) 04/12/22 08:59 Discharge Plan Discharge Patient Disposition: Home Clinical Impression: Hematuria, Complication of Hdez catheter Condition: Stable Prescriptions: No Action tamsulosin 0.4 mg capsule 0.4 mg PO DAILY docusate sodium [Dulcolax Stool Softener (dss)] 100 mg capsule 100 mg PO DAILY levofloxacin 500 mg tablet 500 mg PO DAILY Qty: 5 1RF Rx Instructions: Begin day before biopsy Ultra CoQ10 75 mg capsule 75 mg PO DAILY atorvastatin 40 mg tablet 20 mg PO DAILY amlodipine 5 mg tablet 5 mg PO DAILY ascorbate calcium (vitamin C) 500 mg Tablet 500 mg PO DAILY finasteride 5 mg tablet 5 mg PO DAILY 30 Days Qty: 30 0RF folic acid 20 mg Capsule 20 mg PO DAILY Aspir-81 81 mg Tablet,Delayed Release (Dr/Ec) 81 mg PO DAILY Lactobacillus acidophilus Capsule 100 mg PO DAILY Ensure Liquid 1 ea PO DAILY cholecalciferol (vitamin D3) 50 mcg (2,000 unit) Tablet 50 mcg PO DAILY Discharge Orders: Discharge ED (Routine); Ordered 04/12/22 Ordered By: Abdoul Orona Referrals: Ángela Lagos MD [Primary Care Provider] - Discharge Diet: Usual diet Discharge Activity: Increase activity as tolerated Patient Instructions: Hdez Catheter Placement and Care (ED), Hematuria (ED) Activity Restrictions/Additional Instructions: Thank you for visiting the emergency department. You were seen and evaluated for concern over Hdez catheter. As discussed you do have some clot observed on ultrasound however drainage improved with flushing. I believe that it is safe to continue management at home. Please contact your urologist. Please return to the emergency department for recurrent symptoms, increased pain, any infectious symptoms, failure to drain, or anything else that you are concerned about a feel needs emergency department evaluation. Coding Level of Care Code ED Social Media Marketing Manager for Tamir Fwd Exam Comprehensive
[2022-04-12 08:13] VITALS: BP 175/85; PULSE 89; RESP 16; TEMP 36.9; O2SAT 97; BMI 24.3
[2022-04-12 08:20] VITALS: BP 174/95; PULSE 88; RESP 16; O2SAT 96
--- NOTE | 2022-04-12 08:32 | US_ITS ---
WS: [id number] RENAL ULTRASOUND HISTORY: urinary retention concern post op with catheter placement COMPARISON: 12/28/2020 TECHNIQUE: 2-D and color Doppler imaging of the kidney submitted. Right kidney: 12.0 cm x 5.4 cm x 5.4 cm. Normal echogenicity with no hydronephrosis or mass. Left kidney: 12.6 cm x 5.4 cm x 6.5 cm. Normal echogenicity with no hydronephrosis or mass. Aorta: Normal. Urinary Bladder: Hdez catheter present in a nondistended bladder. There is a small amount of debris within the urinary bladder surrounding the catheter. US/US renal BI* [id number] IMPRESSION: 1. No hydronephrosis. 2. Hdez catheter is in a nondistended bladder. There is debris which is proba deric clotted blood surrounding Hdez catheter balloon.
[2022-04-12 08:59] VITALS: BP 133/86; PULSE 81; RESP 16; TEMP 36.5; O2SAT 97; BMI 28.1
[2022-04-12] MEDS: sodium chloride 0.9% 1,000 ML 999 ML IV (09:02)
[2022-04-12 09:10] VITALS: BP 163/86; PULSE 80; RESP 16; O2SAT 95
[2022-04-12 09:30] VITALS: BP 174/92; PULSE 84; RESP 18; O2SAT 96
[2022-04-12 09:39] LABS: Blood Urea Nitrogen 14 mg/dL (8-23); Calcium 9.2 mg/dL (8.5-10.5); Carbon Dioxide 26 mmol/L (22-29); Chloride 103 mmol/L (98-107); Creatinine Clr Calc Pharmacy 82.8956; Glucose 116 mg/dL (65-115); Osmolality Calculated 291 mOsm/kg (285-295); Sodium 140 mmol/L (136-145)
[2022-04-12 10:43] VITALS: BP 149/84; PULSE 80; RESP 18; O2SAT 95
[2022-04-12] MEDS: acetaminophen 500 mg Tablet 1000 MG PO (11:27)
== END 2022-04-12 11:52 | disposition home or self-care (01) ==
PROVIDERS: Emergency Provider Emergency Medicine; PCP Family Medicine
DX: T83.9XXA Unspecified complication of genitourinary prosthetic device, implant and graft, initial encounter (principal); R31.9 Hematuria, unspecified; Z79.82 Long term (current) use of aspirin; Z85.118 Personal history of other malignant neoplasm of bronchus and lung
CPT/HCPCS: 76770; 80048; 96360; 96361; 99284; J7030

== ENCOUNTER → 2022-09-04 10:00 | Outpatient (BNVA) | payer OTHER, SELFPAY | PROVIDERS: Visit Provider Internal Medicine Cardiovascular Disease | DX: R06.02 Shortness of breath (principal); I10 Essential (primary) hypertension; E78.5 Hyperlipidemia, unspecified; I65.29 Occlusion and stenosis of unspecified carotid artery; C34.90 Malignant neoplasm of unspecified part of unspecified bronchus or lung; N40.1 Benign prostatic hyperplasia with lower urinary tract symptoms; Z87.891 Personal history of nicotine dependence | CPT/HCPCS: 93005; 99204 ==

== ENCOUNTER 2022-09-17 08:53 | Outpatient (CLI) | payer OTHER, SELFPAY ==
--- NOTE | 2022-09-17 09:15 | USCV_ITS ---
Jeremy Nichols Age: 77 Gender: M : 1945 Exam Date: 09/17/2022 09:04 Ordering Phys: Barbara Arora MD ([email or web address]) Technologist: CT [place] [facility] [place]: [place] Risk Factors: Previous Vascular Surgery: Right Brachial BP: / Left Brachial BP: / Right Left Velocity (cm/s) Spectral Plaque Velocity (cm/s) Spectral Plaque Syst/Diast Broadening Syst/Diast Broadening 113.60/20.90 Prox CCA 117.60/ 22.50 89.40/ 19.20 Mid CCA 88.80 / 24.90 62.50/ 16.30 Distal CCA 85.30 / 20.10 90.35/ 25.95 Prox ICA 270.00/ 49.70 80.70/ 26.90 Mid ICA 107.30/ 27.60 73.10/ 19.40 Distal ICA 56.30 / 21.00 284.20 ECA 212.10 0.81 ICA/CCA 2.30 Antegrade Vertebral Antegrade 49.70/ 14.10 cm/s 55.90/ 6.70 cm/s Bi Subclavian Bi 87.20 FINDINGS bilateral eca stenosis, left ica stenosis CONCLUSIONS Right ICA stenosis <50%. Mild atheromatous plaque right carotid bulb/ICA. Left ICA stenosis 70-99%. Moderate atheromatous plaque left carotid bulb/ICA. This could be further evaluated with CTA Normal antegrade Doppler flow noted in the right vertebral artery. Normal antegrade Doppler flow noted in the left vertebral artery. Ismael Cohen MD (Electronically Signed) Final Date: 17 September 2022 11:04 S
== END 2022-09-17 08:54 | disposition home or self-care (01) ==
LOC: RAD 08:57
PROVIDERS: Visit Provider Internal Medicine Cardiovascular Disease
DX: I65.23 Occlusion and stenosis of bilateral carotid arteries (principal)
CPT/HCPCS: 93880

== ENCOUNTER 2022-09-20 07:07 | Outpatient (CLI) | payer OTHER, SELFPAY ==
[2022-09-20 07:31] VITALS: BMI 24.3
--- NOTE | 2022-09-20 08:23 | ECG_ITS ---
[facility] Test Date: 2022-09-20 Pat Name: Jeremy Nichols Department: Room: Gender: Male Budget Consultant: : 1945 Requested By: Barbara Arora Order Number: [id number] Hauser MD: Barbara Arora M.D. Interpretive Statements NAME OF STUDY: EXERCISE SESTAMIBI STRESS TEST INDICATION: Chest Pain; Shortness of Breath Baseline blood pressure of 166/79 mm Hg, heart rate 83 beats per minute and oxygen saturation of 96%. EKG showed normal sinus rhythm, right axis deviation. Normal ST-Ts. ??? The patient exercised for 4 minutes and 17 seconds on a [standard Andrea protocol]. Patient attained a maximum heart rate of 143 beats per minute( 99 % of the maximum predicted heart rate) with a blood pressure at the peak exercise of 216/74 mm Hg and oxygen saturation of 92%. The EKG at the peak exercise revealed sinus tachycardia with normal ST and T's. Patient did not have any chest pain or any significant arrhythmis with the exercise. The study was terminated due to maximal effort. During the recovery phase, there were no new changes. ??? Blood pressure at the end of the recovery phase was 166/73 mm Hg with a heart rate of 94 beats per minute and oxygen saturation of 98%. ??? CONCLUSION: 1. Normal EKG response to treadmill exercise. 2. No exercise-induced chest pain or cardiac arrhythmia. 3. Fair exercise tolerance, attained a maximum of 7 METs. 4. Baseline hypertension with hypertensive response to exercise. 5. Perfusion scan will be documented separately. Electronically Signed On 09-22-2022 18:21:38 OUTSIDE CUTTER HAND by Barbara Arora M.D. [id number]
--- NOTE | 2022-09-20 08:23 | NMCV_ITS ---
NM maria t perf SPECT r/s* [id number] Jeremy Nichols Age: 77 Gender: M : 1945 Exam Date: 09/20/2022 08:23 Ordering Phys: Barbara Arora MD ([email or web address]) Technologist: LAURI Denis Exam Location: [facility] Indications: SHORTNESS OF BREATH STRESS TEST Please see separate stress test report in [facility] for full findings IMAGE PROTOCOL Rest/Stress 1 Exercise Day Radiopharmaceutical Dose (mCi) Administration Site Administered by Rest: Tc-99m 11.0 IV LAURI Chen Sestamibi Stress:Tc-99m 32.3 IV LAURI Chen Sestamibi Rest: 20-Sep-2022 60 Discovery 630 Stress: 20-Sep-2022 30 Discovery 630 Radiopharmaceutical was injected at 88 % maximum heart rate. Images obtained in supine and prone position. SPECT RESULTS Technical Quality: Excellent Raw Data Analysis: Normal Image Corrections: No attenuation or motion correction applied Summed Stress Score: 0 Summed Rest Score: 0 Summed Difference Score: 0 PERFUSION FINDINGS SPECT images demonstrate homogeneous tracer distribution throughout the myocardium. FUNCTIONAL RESULTS (calculated via Gated SPECT) Stress Image LV EF (%): 77 Stress EDV (mL):64 TID: 0.91 Stress ESV (mL):15 FUNCTIONAL FINDINGS: The left ventricle is normal in size. Transient Ischemia Dilatation of 0.91. The left ventricular ejection fraction is normal with a value of 77%. There is normal left ventricular wall thickening. IMPRESSIONS 1. Myocardial perfusion imaging is normal. 2. Overall left ventricular systolic function is normal without regional wall motion abnormalities, LVEF=77%. 3. EKG portion of the study will be reported separately. 4. Scan indicates low risk for cardiac events. Barbara Arora MD (Electronically Signed) Final Date: 24 September 2022 18:10 S
[2022-09-20 09:44] VITALS: BP 166/73; PULSE 96
== END 2022-09-20 07:08 | disposition home or self-care (01) ==
LOC: CDL 07:09
PROVIDERS: Visit Provider Internal Medicine Cardiovascular Disease
DX: R06.02 Shortness of breath (principal); R07.9 Chest pain, unspecified; I10 Essential (primary) hypertension
CPT/HCPCS: 36415; 78452; 93017; A9500

== ENCOUNTER 2023-11-04 18:20 | Emergency (ER) | payer OTHER, SELFPAY ==
[2023-11-04 18:23] VITALS: BMI 28.1
--- NOTE | 2023-11-04 18:24 | XRR_ITS ---
PROCEDURE INFORMATION: Exam: XR Chest Exam date and time: 11/04/2023 6:27 PM Age: 78 years old Clinical indication: Fever TECHNIQUE: Imaging protocol: Radiologic exam of the chest. Views: 1 view. COMPARISON: CR XR chest 1V portable [id number] 12/25/2021 12:30 PM FINDINGS: Lungs: A mild interstitial prominence is stable. There is improved aeration of bandlike opacity in the left mid lung zone which is nonspecific. No consolidation is seen. Pleural spaces: Unremarkable. No pleural effusion. No pneumothorax. Heart/Mediastinum: Unremarkable. No cardiomegaly. Vasculature: Atherosclerotic calcifications of the aorta are present. Bones/joints: Unremarkable. XR/XR chest 1V portable [id number] IMPRESSION: 1. Improved aeration of bandlike opacity in the left mid lung zone. 2. Interval removal of right chest port. 3. Otherwise stable radiographic appearance of the chest compared to 12/25/2021 and without evidence of acute cardiopulmonary disease.
[2023-11-04 18:25] VITALS: BP 104/57; PULSE 90; RESP 16; TEMP 37.7; O2SAT 95
--- NOTE | 2023-11-04 18:25 | CTR_ITS ---
PROCEDURE INFORMATION: Exam: CT Abdomen And Pelvis Without Contrast Exam date and time: 11/04/2023 7:04 PM Age: 78 years old Clinical indication: Fever TECHNIQUE: Imaging protocol: Computed tomography of the abdomen and pelvis without contrast. Radiation optimization: All CT scans at this facility use at least one of these dose optimization techniques: automated exposure control; mA and/or kV adjustment per patient size (includes targeted exams where dose is matched to clinical indication); or iterative reconstruction. COMPARISON: CT abdomen pelvis w con* [id number] 03/26/2021 9:44 PM RADIATION DOSE METRICS: Total DLP (mGy-cm): 598 FINDINGS: Lungs: Moderate fibrotic changes in the posterior lung bases with subpleural honeycombing, stable to progressed compared to prior study. Liver: Geographic areas of decreased attenuation of the hepatic parenchyma consistent with fatty infiltration. The liver is otherwise normal. No masses are seen on noncontrast imaging. Gallbladder and bile ducts: The gallbladder is mildly contracted. There may be small gallstones. There is moderate extrahepatic and mild intrahepatic ductal dilatation, stable compared to 2020. Pancreas: The pancreas is normal. Spleen: The spleen is normal. Adrenal glands: There are subcentimeter nodules of the bilateral adrenal glands which are stable compared to 202. Kidneys and ureters: There are several 2-3 mm nonobstructing left renal calculi. There is a 9 mm hyperdense lesion in the lower pole of the left kidney, stable compared to prior study where there was a cyst in this location. 4 x 7 mm mid right ureteral calcification causing moderate right hydroureteronephrosis and [id number] right perinephric changes. 2-3 mm nonobstructing right renal calculi are also present. No other ureteral calcifications are present. There is no hydronephrosis on the left. Stomach and bowel: Anastomotic sutures are noted in the rectosigmoid region. Scattered colonic diverticula are present. There is mild increased soft tissue density in the adjacent fat which may represent inflammatory change or p residual postoperative change. Diverticulitis can not be excluded based on this appearance. There is moderate to large retained colonic stool. Appendix: Postsurgical changes are noted in the expected location of the appendix. Intraperitoneal space: Unremarkable. No free air. No significant fluid collection. Vasculature: Atherosclerotic calcifications of the aorta are present. There is ectasia of the infrarenal abdominal aorta measuring up to 2.9 cm, stable. Lymph nodes: Unremarkable. No enlarged lymph nodes. Urinary bladder: There is mild diffuse bladder wall thickening likely related to chronic outlet obstruction. Reproductive: The prostate is markedly enlarged and projects into the base of the urinary bladder. Bones/joints: Unremarkable. No acute fracture. Soft tissues: Unremarkable. CT/CT kidney stone [id number] IMPRESSION: 1. 4 x 7 mm mid right ureteral calcification causing moderate right hydroureteronephrosis and perinephric changes. 2. Tiny bilateral nonobstructing renal calculi. 3. Extensive colonic diverticula. Increased soft tissue density in the fat adjacent to the proximal sigmoid colon and rectosigmoid anastomotic sutures. This finding is nonspecific and may represent postoperative change though diverticulitis could have this appearance. 4. Other chronic findings above.
--- NOTE | 2023-11-04 18:25 | ECG_ITS ---
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 Measurements Intervals [place] Rate: 88 P: 24 ND: 150 QRS: 44 QRSD: 107 T: 49 QT: 356 QTc: 432 Interpretive Statements SINUS RHYTHM POSSIBLE LEFT ATRIAL ENLARGEMENT [-0.1mV P-WAVE IN V1/V2] Compared to ECG 03/27/2021 13:58:31 Myocardial infarct finding no longer present Electronically Signed On 11-05-2023 8:13:46 FUNCTIONAL TESTER TYPEWRITERS by Maxwell Boo M.D. [id number]
--- NOTE | 2023-11-04 18:26 | W.ED.ABDPA2 ---
HPI - Abdominal Pain General: Chief Complaint: Abdominal Pain Stated Complaint: RT side abd pain Time Seen by Provider: 11/04/23 18:25 Source: patient Mode of arrival: ambulatory Limitations: no limitations History of Present Illness: 78-year-old male who states that he has had cough congestion along with fevers over the last 2 days. He had some mild dyspnea states fevers been up to 102 at home. Denies any chest pain he states that then today started having a sudden onset of right flank pain with nausea and vomiting he rates that pain a 7 out of 10 he denies any dysuria. Associated Symptoms: Reports chills, nausea and vomiting; Denies diarrhea, dysuria and fever(s) Review of Systems Const: Reports: chills and body aches; Denies: fever(s) or change in appetite Eyes: Denies: eye discomfort ENMT: Denies: throat pain or dental pain Card: Denies: chest pain Resp: Reports: non-productive cough; Denies: dyspnea GI: Reports: nausea and vomiting; Denies: abdominal pain or diarrhea : Reports: flank pain; Denies: dysuria Musc: Denies: neck pain or back pain Skin/Breast: Denies: rash Neuro: Denies: headache(s) PFSH ED PFSH: Medical History Hyperlipidemia HTN (hypertension) History of shingles History of COVID-19 BPH (benign prostatic hyperplasia) s/p fulguration on 03/23/2021, due to bleeding from the median lobe Lung cancer Calculus in bladder Recurrent UTI Surgical History S/P cataract surgery H/O lithotripsy Done on 03/23/2021 to a bladder stone History of lung biopsy Family History Mother , AT 60 Heart disease Myocardial infarction Mother/twin brother & other siblings had TN Father , AT 64 Diabetes Brother Myocardial infarction Hypertension Grandfather Stroke Social History Smoking and tobacco/nicotine status: former use of tobacco/nicotine Alcohol intake: never Substance/Drug Use: never Marital status: / Current occupational status: retired Physical Exam Const: COMMON NORMALS: no acute distress, patient oriented x3 and healthy appearing HENMT: COMMON NORMALS: normocephalic and atraumatic HEAD & SCALP: normocephalic and atraumatic Neck/C-Spine: COMMON NORMALS: full ROM and supple Chest: COMMONS NORMALS: normal inspection of the chest and normal palpation of entire chest wall Resp: COMMON NORMALS: normal respiratory effort, No retractions, No use of accessory muscles and clear to auscultation bilaterally AUSCULTATION: clear to auscultation bilaterally Cardio: COMMON NORMALS: regular rate, regular rhythm and No murmurs present (Cardio) RATE: regular rate RHYTHM: regular rhythm GI: COMMON NORMALS: Normal to inspection, nondistended, normoactive bowel sounds present, Soft to palpation, non-tender and no masses PALPATION: Yes Soft to palpation Extremity: COMMON NORMALS: normal to inspection and full ROM Neuro: COMMON NORMALS: patient oriented x3, moves all extremities and no focal motor deficits Psych: COMMON NORMALS: mental status grossly normal, Normal thought process present and cooperative THOUGHT PROCESS: Normal thought process present Skin: COMMON NORMALS: no rashes or lesions noted and no wounds GENERAL SKIN EXAM: no rashes or lesions noted Course Vital Signs: Vital signs: Vital Signs Temperature 99.9 F H 11/04/23 18:25 Pulse Rate 77 11/04/23 22:06 Respiratory Rate 16 11/04/23 22:06 Blood Pressure 99/54 11/04/23 22:06 Pulse Oximetry 95 11/04/23 22:06 Oxygen Delivery Me thod Room Air 11/04/23 18:25 MDM - Abdominal Pain Medical Decision Making Patient presents here with pyelonephritis with kidney stone causing sepsis patient was given 1 L fluids by EMS given another 2 L here to receive a sepsis bolus he started on IV antibiotics here as well I spoke to urologist at [facility] as we do not have urology here will transfer there spoke to Dr. Husain for likely stent placement Medical Records I reviewed the patient's medical records. Lab Data I reviewed the patient's lab results. 11/04/23 18:40 11/04/23 18:40 Labs/Radiology: Radiology Impressions Chest X-Ray 11/04/23 18:24 IMPRESSION: 1. Improved aeration of bandlike opacity in the left mid lung zone. 2. Interval removal of right chest port. 3. Otherwise stable radiographic appearance of the chest compared to 12/25/2021 and without evidence of acute cardiopulmonary disease. Abdomen/Pelvis CT 11/04/23 18:25 IMPRESSION: 1. 4 x 7 mm mid right ureteral calcification causing moderate right hydroureteronephrosis and perinephric changes. 2. Tiny bilateral nonobstructing renal calculi. 3. Extensive colonic diverticula. Increased soft tissue density in the fat adjacent to the proximal sigmoid colon and rectosigmoid anastomotic sutures. This finding is nonspecific and may represent postoperative change though diverticulitis could have this appearance. 4. Other chronic findings above. Laboratory Results WBC 14.44 10^3/uL (3.29-11.43) H 11/04/23 18:40 RBC 3.77 10^6/uL (3.85-5.65) L 11/04/23 18:40 Hgb 11.00 g/dL (11.27-16.99) L 11/04/23 18:40 Hct 33.2 % (37-53) L 11/04/23 18:40 MCV 88.1 fl (82-101) 11/04/23 18:40 MCH 29.2 pg (27-33) 11/04/23 18:40 MCHC 33.1 g/dL (30-55) 11/04/23 18:40 RDW 13.2 % (12.1-15.1) 11/04/23 18:40 Plt Count 216 10^3/cmm (157-399) 11/04/23 18:40 MPV 9.3 fL (7.4-10.4) 11/04/23 18:40 Neut % (Auto) 89.4 % 11/04/23 18:40 Lymph % (Auto) 4.6 % 11/04/23 18:40 [place] % (Auto) 5.0 % 11/04/23 18:40 Eos % (Auto) 0.1 % 11/04/23 18:40 Baso % (Auto) 0.3 % 11/04/23 18:40 Neut # (Auto) 12.90 10^3/uL (1.8-7.7) H 11/04/23 18:40 Lymph # (Auto) 0.7 10^3/uL (0.8-4.8) L 11/04/23 18:40 [place] # (Auto) 0.7 10^3/uL (0.2-0.9) 11/04/23 18:40 Eos # (Auto) 0.0 10^3/uL (0.0-0.8) 11/04/23 18:40 Baso # (Auto) 0.1 10^3/uL (0.0-0.1) 11/04/23 18:40 Nucleated RBC % (auto) 0 % 11/04/23 18:40 Nucleated RBCs # 0.0 /100WBC 11/04/23 18:40 Sodium 137 mmol/L (136-145) 11/04/23 18:40 Potassium 3.4 mmol/L (3.5-5.1) L 11/04/23 18:40 Chloride 105 mmol/L (98-107) 11/04/23 18:40 Carbon Dioxide 21 mmol/L (22-29) L 11/04/23 18:40 Anion Gap 14.4 (5-19) 11/04/23 18:40 BUN 27 mg/dL (8-23) H 11/04/23 18:40 Creatinine 1.5 mg/dL (0.7-1.2) H 11/04/23 18:40 GFR Calculation Not Reportable 11/04/23 18:40 Glucose 115 mg/dL (65-115) 11/04/23 18:40 Calculated Osmolality 290 mOsm/kg (285-295) 11/04/23 18:40 Lactic Acid 3.0 mmol/L (0.5-2.2) H 11/04/23 18:40 Calcium 8.6 mg/dL (8.5-10.5) 11/04/23 18:40 Total Bilirubin 0.7 mg/dL (0.15-1.2) 11/04/23 18:40 AST 21 U/L (0-40) 11/04/23 18:40 ALT 11 U/L (0-41) 11/04/23 18:40 Alkaline Phosphatase 94 U/L (40-130) 11/04/23 18:40 Total Protein 6.2 g/dL (6.6-8.7) L 11/04/23 18:40 Albumin 3.4 g/dL (3.5-5.2) L 11/04/23 18:40 Globulin 2.8 g/dL (1.3-4.6) 11/04/23 18:40 Lipase 23 U/L (13-60) 11/04/23 18:40 Urine Color Yellow (Yellow) 11/04/23 20:16 Urine Appearance Cloudy (CLEAR) A 11/04/23 20:16 Urine pH 5 (5-7) 11/04/23 20:16 Ur Specific [place] 1.015 (1.005-1.030) 11/04/23 20:16 Urine Protein 1+ (Negative) H 11/04/23 20:16 Urine Glucose (UA) Norm (Normal) 11/04/23 20:16 Urine Ketones 1+ (Negative) H 11/04/23 20:16 Urine Blood 3+ (Negative) H 11/04/23 20:16 Urine Nitrate Positive (Negative) H 11/04/23 20:16 Urine Bilirubin Neg (Negative) 11/04/23 20:16 Urine Urobilinogen 1 mg/dL (Negative) H 11/04/23 20:16 Ur Leukocyte Esterase 2+ (Negative) H 11/04/23 20:16 Urine RBC 25-40 /hpf (0-2) H 11/04/23 20:16 Urine WBC 40-55 /hpf (0-5) H 11/04/23 20:16 Ur Squamous Epith Cells None /hpf (0-5) 11/04/23 20:16 Ur Transition Epith Cell 0-4 /hpf 11/04/23 20:16 Amorphous Sediment Not Reportable 11/04/23 20:16 Urine Bacteria 3+ /hpf (NONE) H 11/04/23 20:16 Urine Mucus 2+ /hpf 11/04/23 20:16 Influenza Type A Ag negative (Negative) 11/04/23 19:01 Influenza Type B Ag negative (Negative) 11/04/23 19:01 SARS-CoV-2 Ag (Rapid) negative (Negative) 11/04/23 19:01 All radiology interpretation(s) finalized by discharge EKG Data EKG 1: I personally reviewed and interpreted this EKG as follows: EKG interpretation date: 11/04/23 EKG interpretation time: 18:35 Interpretation: nsr hr [address] or t wave abnormalities qrs 107 qtc 402 Critical Care Time Critical Care Time: Critical Care Time: Yes Total Critical Care Time: 40 Attestation: The high probability of a clinically significant, sudden or life threatening deterioration of the patient's gu system(s) required my full and direct attention, intervention and personal management. The critical care time is as shown. This time is in addition to time spent performing any reported procedures but includes the following: [x] Data and vital sign review and interpretation [x] Patient assessment, examination and intervention [x] Documentation [x] Medication orders and management Discharge Plan Discharge Patient Disposition: Xfer Short-Term Hosp Clinical Impression: Kidney stone, Pyelonephritis, Sepsis Condition: Stable Referrals: DAMION PAUL, [Primary Care Provider] - Coding Level of Care Code ED School Standards Coach for Tamir Leggett
[2023-11-04] MEDS: morphine 4 mg/mL SDV 1 mL IVP (18:46)
[2023-11-04] MEDS: acetaminophen 325 mg Tablet 650 MG PO (18:47)
[2023-11-04] MEDS: ondansetron 2 mg/ML SDV 2 mL 4 MG IVP (18:47)
[2023-11-04] MEDS: sodium chloride 0.9% 1,000 ML 999 ML IV ×2 (18:49→19:24)
[2023-11-04 18:55] LABS: Basophils # 0.1 10^3/uL (0.0-0.1); Basophils % 0.3 %; Eosinophils % 0.1 %; Hematocrit 33.2 % (37-53); Lymphocytes # 0.7 10^3/uL (0.8-4.8); Lymphocytes % 4.6 %; Mean Corpuscular HGB Conc 33.1 g/dL (30-55); Mean Corpuscular Hemoglobin 29.2 pg (27-33); Mean Corpuscular Volume 88.1 fl (82-101); Mean Platelet Volume 9.3 fL (7.4-10.4); Monocytes # 0.7 10^3/uL (0.2-0.9); Neutrophils % 89.4 %; Nucleated Red Blood Cells % 0 %; Platelet Count 216 10^3/cmm (157-399); Red Blood Count 3.77 10^6/uL (3.85-5.65); Red Cell Distribution Width 13.2 % (12.1-15.1); White Blood Count 14.44 10^3/uL (3.29-11.43)
[2023-11-04 19:10] LABS: Alanine Aminotransferase 11 U/L (0-41); Albumin Level 3.4 g/dL (3.5-5.2); Alkaline Phosphatase 94 U/L (40-130); Anion Gap 14.4 (5-19); Aspartate Amino Transferase 21 U/L (0-40); Blood Urea Nitrogen 27 mg/dL (8-23); Calcium 8.6 mg/dL (8.5-10.5); Carbon Dioxide 21 mmol/L (22-29); Chloride 105 mmol/L (98-107); Globulin 2.8 g/dL (1.3-4.6); Glucose 115 mg/dL (65-115); Lipase 23 U/L (13-60); Osmolality Calculated 290 mOsm/kg (285-295); Potassium 3.4 mmol/L (3.5-5.1); Sodium 137 mmol/L (136-145); Total Bilirubin 0.7 mg/dL (0.15-1.2); Total Protein 6.2 g/dL (6.6-8.7)
[2023-11-04 19:24] LABS: Influenza A by IFA negative (Negative); Influenza B by IFA negative (Negative)
[2023-11-04 19:34] LABS: SARS Covid-2 Antigen negative (Negative)
[2023-11-04] MEDS: piperacillin-tazobactam 3.375 GM in sodium chloride 0.9% (plus) 50 ML IV (20:09)
[2023-11-04 20:15] VITALS: BP 95/51; PULSE 80; RESP 16; O2SAT 93
[2023-11-04 20:37] LABS: Reflex Lactate Order REFLEX LACTIC ORDERD
[2023-11-04 20:42] LABS: Add Urine Microscopic? YES; Bilirubin Urine Neg (Negative); Blood Urine 3+ (Negative); Glucose Urine UA Norm (Normal); Ketones Urine 1+ (Negative); Leukocyte Esterase Urine 2+ (Negative); Nitrate Urine Positive (Negative); Protein Urine 1+ (Negative); Specific Gravity, Urine 1.015 (1.005-1.030); Urine Color Yellow (Yellow); Urobilinogen Urine 1 mg/dL (Negative); pH Urine 5 (5-7)
[2023-11-04 20:44] LABS: Bacteria Urine 3+ /hpf; Mucus Urine 2+ /hpf; RBC Urine 25-40 /hpf (0-2); Transitional Epi Cells Urine 0-4 /hpf; Urine Appearance Cloudy (CLEAR); WBC Urine 40-55 /hpf (0-5)
[2023-11-04 20:45] LABS: Add Urine Culture? Yes
[2023-11-04] MEDS: vancomycin 1,000 MG in sodium chloride 0.9% 250 ML 250 MG IV (21:04)
[2023-11-04 22:06] VITALS: BP 99/54; PULSE 77; RESP 16; O2SAT 95
[2023-11-04 22:38] LABS: Lactic Acid level (Lactate) 1.9 mmol/L (0.5-2.2)
== END 2023-11-05 02:45 | disposition short-term general hospital (02) ==
PROVIDERS: Emergency Provider Emergency Medicine
DX: N13.6 Pyonephrosis (principal); A41.9 Sepsis, unspecified organism; Z11.52 Encounter for screening for COVID-19; Z87.891 Personal history of nicotine dependence; E78.5 Hyperlipidemia, unspecified; I10 Essential (primary) hypertension; Z85.118 Personal history of other malignant neoplasm of bronchus and lung; Z87.442 Personal history of urinary calculi
CPT/HCPCS: 36415; 71045; 74176; 80053; 81001; 83605; 83690; 85025; 87040; 87077; 87086; 87186; 87205; 87426; 87804; 93005; 96365; 96375; 99285; J2270; J2405; J2543; J3370; J7030; J7050

== ENCOUNTER → 2024-01-07 11:06 | Day surgery (SDC) | payer OTHER, SELFPAY ==
--- NOTE | 2024-01-07 11:54 | PC.PHAR ---
received order from myke for patient to receive cefepime 1 gram bid x5 days for complicated uti. patient is [facility] and unable to receive treatment at home. initially i thought we could compound this agent in an elastomeric pump so that patient would not have to drive here from [place] two times daily. unfortunately after further investigation, cefepime is not stable longer than 24 hours. I have spoken with myke and suggested she call the physician to see if there is another agent suitable that could be given once daily - if pseudomonas is suspected, fluoroquinolone or tobramycin perhaps. otherwise, patient will need to return to clinic twice daily for cefepime therapy.
[2024-01-07] MEDS: cefepime 1,000 MG in sodium chloride 0.9% (plus) 50 ML 100 MG IV (12:11)
[2024-01-07 12:34] VITALS: BP 149/79; PULSE 81; RESP 18; TEMP 36.7; O2SAT 98
--- NOTE | 2024-01-07 12:36 | PICC.NOTE ---
Midline placed to right basilic vein. Referred for midline for 5 days IV Cefepime 1 gm BID. Risks and benefits discussed and informed consent obtained from patient. Right arm assessed with right basilic vein measuring 5.0 mm, straight and apparent best choice for placement. Using sterile technique and MST, right baslic vein accessed x 1 stick. Mid-arm circumference measured 10 cm from right AC 27 cm. Trimmed cath 10 cm with 1 cm external length noted. Insertion site covered with Biopatch and TSM. Pt to start with twice daily infusions at [facility] tomorrow. Report called to MEREDITH Ferguson. First dose of IV Cefepime given without difficulty. No reaction noted.
== END ==
PROVIDERS: Visit Provider Urology
DX: Z45.2 Encounter for adjustment and management of vascular access device (principal); N39.0 Urinary tract infection, site not specified
CPT/HCPCS: 36569; 36573; 96365; C1751; J0692

== ENCOUNTER 2024-01-12 08:30 | Oncology outpatient (recurring) (ONCR) | payer OTHER, SELFPAY ==
[2024-01-08] MEDS: cefepime 1,000 MG in sodium chloride 0.9% (plus) 50 ML 100 MG IV ×2 (08:34→16:17)
[2024-01-08 08:37] VITALS: BP 128/79; PULSE 74; RESP 16; TEMP 36.8; O2SAT 99
[2024-01-08 16:49] VITALS: BP 135/73; PULSE 82; RESP 16; TEMP 36.8; O2SAT 98
[2024-01-09 07:40] VITALS: BP 119/71; PULSE 67; RESP 17; TEMP 36.6; O2SAT 97
[2024-01-09] MEDS: cefepime 1,000 MG in sodium chloride 0.9% (plus) 50 ML 100 MG IV ×2 (07:43→16:03)
[2024-01-09 08:30] VITALS: BP 113/70; PULSE 78; RESP 17; TEMP 36.2; O2SAT 97
[2024-01-09 15:55] VITALS: BP 151/79; PULSE 80; RESP 17; TEMP 37.2; O2SAT 99
[2024-01-09 16:42] VITALS: BP 142/69; PULSE 82; RESP 18; TEMP 37.8; O2SAT 96
[2024-01-10 08:32] VITALS: BP 153/72; PULSE 78; RESP 18; TEMP 36.4; O2SAT 98
[2024-01-10] MEDS: cefepime 1,000 MG in sodium chloride 0.9% (plus) 50 ML 100 MG IV ×2 (08:41→16:26)
[2024-01-10 09:15] VITALS: BP 139/68; PULSE 75; RESP 17; TEMP 36.6; O2SAT 98
[2024-01-10 16:29] VITALS: BP 126/68; PULSE 81; RESP 18; TEMP 36.8; O2SAT 98
[2024-01-10 16:55] VITALS: BP 145/68; PULSE 78; RESP 16; TEMP 36.9; O2SAT 98
[2024-01-10 17:01] VITALS: BP 145/68; PULSE 78; RESP 16; TEMP 36.9; O2SAT 98
[2024-01-11] MEDS: cefepime 1,000 MG in sodium chloride 0.9% (plus) 50 ML 100 MG IV ×2 (08:22→16:21)
[2024-01-11 08:28] VITALS: BP 147/68; PULSE 86; RESP 18; TEMP 36.7; O2SAT 98
[2024-01-11 16:26] VITALS: BP 167/92; PULSE 88; RESP 18; TEMP 36.8; O2SAT 99
[2024-01-12 08:30] VITALS: BP 145/74; PULSE 82; RESP 16; TEMP 36.9; O2SAT 95
[2024-01-12] MEDS: cefepime 1,000 MG in sodium chloride 0.9% (plus) 50 ML 100 MG IV (08:37)
[2024-01-12 09:30] VITALS: BP 129/70; PULSE 84; RESP 16; TEMP 36.8; O2SAT 98
[2024-01-12 10:28] LABS: Add Urine Microscopic? YES; Bilirubin Urine Neg (Negative); Blood Urine 3+ (Negative); Glucose Urine UA Norm (Normal); Ketones Urine Negative (Negative); Leukocyte Esterase Urine 2+ (Negative); Nitrate Urine Negative (Negative); Protein Urine 1+ (Negative); Specific Gravity, Urine 1.015 (1.005-1.030); Urine Appearance Slightly Cloudy (CLEAR); Urine Color Yellow (Yellow); Urobilinogen Urine Neg (Negative); pH Urine 6 (5-7)
[2024-01-12 10:46] LABS: RBC Urine >100 /hpf (0-2)
[2024-01-12 10:47] LABS: Add Urine Culture? Yes; Amorphous Sediment Urine 1+ /hpf; Bacteria Urine 1+ /hpf; WBC Urine >100 /hpf (0-5)
== END 2024-01-13 23:59 | disposition home or self-care (01) ==
PROVIDERS: Visit Provider Internal Medicine Medical Oncology
DX: Z53.9 Procedure and treatment not carried out, unspecified reason (principal); N39.0 Urinary tract infection, site not specified; Z79.2 Long term (current) use of antibiotics
CPT/HCPCS: 81001; 87086; 96365; 96366; 96367; J0692

== ENCOUNTER → 2024-01-15 14:44 | Day surgery (SDC) | payer OTHER, SELFPAY ==
--- NOTE | 2024-01-15 15:06 | PICC.NOTE ---
Pt arrived to unit stating Dr. Chris Melchor's office said he could have his midline removed. Dr. Melchor's office called. Telephone order received to remove midline. Line to right upper arm dc'd with 10 cm removed. Tip intact. Pressure held for 3 minutes until hemostasis obtained. Insertion site clear of redness, drainage, bleeding, or hematoma. Gauze dressing with opsite in place. Pt instructed to notifiy PCP for signs of infection and to return to ED for bleeding or SOB.
== END ==
PROVIDERS: Visit Provider Urology
DX: Z45.2 Encounter for adjustment and management of vascular access device (principal)
CPT/HCPCS: 99212